=== PATIENT | female | born 1965 | race Caucasian/White ===

== ENCOUNTER 2021-03-11 07:26 | Observation (INO) ==
--- NOTE | 2021-02-26 15:56 | Anesthesiology Consultation ---
Date of Service February 26, 2021 Assessment & Plan (1) Encounter for pre-operative examination: - COVID screening: Per assessment on 02/26: Travel screen negative, no known COVID-19 positive contacts or current COVID-19 related symptoms. Surgeon arranging preop COVID testing. Awaiting results. - S/P Right TKA (11/08/20): SAB x1 attempt + PNB at [facility] - Claustrophobic: Anxious regarding O2 mask and requests to be "sleepy" prior to placement DOS if possible Chart Review Chart Review: Acceptable Risk for Surgery and Patient NOT seen in Pre Admission Testing History Surgery Operation Date: 03/11/21 07:15 Proposed Procedures p Left Total Knee Arthroplasty - Sonny Yancey MD Height/Weight Height: 5 ft 4 in Weight: 102.058 kg Allergies Allergy/AdvReac Type Severity Reaction Status Date / Time amoxicillin [From Augmentin] AdvReac Intermediate Nausea Verified 02/26/21 14:48 clavulanic acid AdvReac Intermediate Nausea Verified 02/26/21 14:48 [From Augmentin] propranolol [From Inderal LA] AdvReac Intermediate Vertigo Verified 02/26/21 15:53 Medications Home Medications Medication Instructions Recorded Confirmed Last Taken ferrous sulfate 325 mg (65 mg 325 mg PO BID #60 tab 07/12/19 02/26/21 11/07/20 16:00 iron) tablet gabapentin 600 mg tablet 600 mg PO HS #30 tab 07/12/19 02/26/21 11/08/20 07:00 meclizine 25 mg tablet 25 mg PO Q8 PRN #1 tab 07/12/19 02/26/21 2 Months Ago ~09/10/20 trazodone 100 mg tablet 100 mg PO HS #90 tab 07/12/19 02/26/21 11/06/20 20:00 albuterol sulfate 1 puffs INH QID PRN 10/22/20 02/26/21 2 Months Ago ~09/10/20 ascorbate calcium (vitamin C) 500 mg PO BID 10/22/20 02/26/21 11/07/20 08:00 bupropion HCl [Wellbutrin SR] 200 mg PO BID 10/22/20 02/26/21 11/08/20 07:00 cholecalciferol (vitamin D3) 50 mcg PO QAM 0202/26/21 11/07/20 08:00 [Vitamin D3] donepezil [Aricept] 5 mg PO HS 10/22/20 02/26/21 11/07/20 16:00 fexofenadine 180 mg PO QAM 10/22/20 02/26/21 11/07/20 08:00 fluticasone propionate [Flonase 2 sprays INTNAS QA 10/22/20 02/26/21 11/07/20 08:00 Allergy Relief] gabapentin 100 mg PO QAM 10/22/20 02/26/21 11/07/20 07:00 gabapentin 400 mg PO TID 10/22/20 02/26/21 11/07/20 07:00 lubiprostone [Amitiza] 24 mcg PO BID 10/22/20 02/26/21 11/07/20 16:00 montelukast [Singulair] 10 mg PO QPM 10/22/20 02/26/21 11/07/20 16:00 oxybutynin chloride 5 mg PO BID 10/22/20 02/26/21 11/07/20 16:00 pantoprazole 40 mg PO QAM 10/22/20 02/26/21 11/08/20 07:00 potassium chloride 20 meq PO QA 10/22/20 02/26/21 11/07/20 08:00 prazosin 2 mg PO 10/22/20 02/26/21 11/06/20 08:00 quetiapine [Seroquel] 100 mg PO 10/22/20 02/26/21 11/06/20 20:00 sertraline [Zoloft] 100 mg PO QAM 10/22/20 02/26/21 11/08/20 07:00 sumatriptan succinate [Imitrex] 25 mg PO UD PRN 10/22/20 02/26/21 2 Weeks Ago ~10/25/20 topiramate [Topamax] 50 mg PO BID 10/22/20 02/26/21 11/07/20 16:00 amitriptyline 10 mg PO HS 11/08/20 02/26/21 Unknown albuterol sulfate 1.25 mg INHALATION QID PRN 02/26/21 02/26/21 Unknown azelastine-fluticasone 1 spray INTRANASAL BID 02/26/21 02/26/21 Unknown lurasidone [Latuda] 20 mg PO PM 02/26/21 02/26/21 Unknown naproxen 500 mg PO BID PRN 02/26/21 02/26/21 Unknown ondansetron HCl [Zofran] 8 mg PO Q8H PRN 02/26/21 02/26/21 Unknown oxycodone-acetaminophen 1 tab PO Q8H PRN 02/26/21 02/26/21 Unknown Past Medical History Medical History Anxiety Asthma "controlled" Bipolar disorder Chronic back pain Claustrophobia Degenerative disc disease Depression GERD (gastroesophageal reflux disease) Controlled Memory loss mild short term Migraine Osteoarthritis Post traumatic stress disorder Past Family History Family History Father Prostate cancer Brother Family history of diabetes mellitus Sister Family history of diabetes mellitus Past Surgical History Surgical History H/O exploratory laparotomy removal of ectopic History of carpal tunnel surgery Left ulnar nerve surgery History of cholecystectomy History of endoscopic sinus surgery History of total knee replacement Right TKA (11/08/20): SAB x1 attempt + PNB at [facility] S/P BSO (bilateral salpingo-oophorectomy) S/P epidural steroid injection Social History Smoking Status: Never smoker Do You Dip or Chew Tobacco: No Hx Alcohol Use: No Hx Substance Use: Yes substance use type: prescription drug Testing Laboratory Results 02/20/21 WBC 10.08 H/H 12.7/40.3 PLATELETS 279 SODIUM 144 POTASSIUM 4.0 CHLORIDE 107 CO2 24 BUN 6 CREATININE 0.8 GLUCOSE 95 HGBA1C 5.5% TSH 2.38 (WNL) PT 13.3 PTT 27 INR 1.00 UA negative Electrocardiogram Date: 02/20/21 NSR at 80bpm. Low voltage QRS, consider pulmonary disease, pericardial effusion or normal variant. Compared to 02/02/2020, no significant change found per outside food server review. Chest X-Ray Date: 02/20/21 No evidence of acute cardiopulmonary disease. Linear streaky opacities in the lung bases, likely atelectasis and/or scarring. No focal consolidation. Cholecystectomy clips in the RUQ. Moderately sized hiatal hernia noted. Other Testing MR Head without contrast (02/16/21): No acute findings (imaging was done for migraine evaluation per report)
--- NOTE | 2021-03-10 19:20 | History & Physical Report ---
Date of Service March 10, 2021 Assessment & Plan (1) Primary osteoarthritis of left knee: Treatment options discussed. She has failed conservative measures. Risks, benefits and alternatives to surgery including but not limited to infection, DVT, pain, stiffness, need for revision surgery, damage to blood vessels, damage to nerves, PE, , were discussed with the patient and they wish to proceed. Will plan on Left total knee arthroplasty on 03/10/21 at [facility] with Dr. Yancey. Will plan on Xarelto 10mg daily x 1 mo post operatively for DVT prophylaxis. Will plan on inpatient rehab post discharge. All questions answered. She will follow up post operatively. History of Present Illness Chief Complaint: Left knee pain Primary Care Provider: Winnie Salas MD 55 year old female with PMHx significant for asthma, GERD, anxiety, migraines who presents with ongoing left knee pain. Pain is interfering with her daily and leisure activity. She has failed conservative measures including cortisone and viscoelastic injections. Has done well with recent right knee replacement. She would like to proceed with left knee replacement. Patient denies headaches, sweats, fevers, chills, double vision, blurred vision, cough, sore throat, dysphagia, chest pain, sob, wheezing, n/v/d/c, numbness, tingling, fatigue, urinary symptoms, mood disorders. ROS positive for left knee pain and stiffness. Allergies Allergy/AdvReac Type Severity Reaction Status Date / Time amoxicillin [From Augmentin] AdvReac Intermediate Nausea Verified 02/26/21 14:48 clavulanic acid AdvReac Intermediate Nausea Verified 02/26/21 14:48 [From Augmentin] propranolol [From Inderal LA] AdvReac Intermediate Vertigo Verified 02/26/21 15:53 Home Medications Medication Instructions Recorded Confirmed Type ferrous sulfate 325 mg (65 mg 325 mg PO BID #60 tab 07/12/19 02/26/21 Rx iron) tablet gabapentin 600 mg tablet 600 mg PO HS #30 tab 07/12/19 02/26/21 Rx meclizine 25 mg tablet 25 mg PO Q8 PRN #1 tab 07/12/19 02/26/21 Rx trazodone 100 mg tablet 100 mg PO HS #90 tab 07/12/19 02/26/21 Rx albuterol sulfate 1 puffs INH QID PRN 10/22/20 02/26/21 History ascorbate calcium (vitamin C) 500 mg PO BID 10/22/20 02/26/21 History bupropion HCl [Wellbutrin SR] 200 mg PO BID 10/22/20 02/26/21 History cholecalciferol (vitamin D3) 50 mcg PO QAM 10/22/20 02/26/21 History [Vitamin D3] donepezil [Aricept] 5 mg PO HS 10/22/20 02/26/21 History fexofenadine 180 mg PO QAM 10/22/20 02/26/21 History fluticasone propionate [Flonase 2 sprays INTNAS QAM 10/22/20 02/26/21 History Allergy Relief] gabapentin 100 mg PO QAM 10/22/20 02/26/21 History gabapentin 400 mg PO TID 10/22/20 02/26/21 History lubiprostone [Amitiza] 24 mcg PO BID 10/22/20 02/26/21 History montelukast [Singulair] 10 mg PO QPM 10/22/20 02/26/21 History oxybutynin chloride 5 mg PO BID 10/22/20 02/26/21 History pantoprazole 40 mg PO QAM 10/22/20 02/26/21 History potassium chloride 20 meq PO QAM 10/22/20 02/26/21 History prazosin 2 mg PO HS 10/22/20 02/26/21 History quetiapine [Seroquel] 100 mg PO HS 10/22/20 02/26/21 History sertraline [Zoloft] 100 mg PO QAM 10/22/20 02/26/21 History sumatriptan succinate [Imitrex] 25 mg PO UD PRN 10/22/20 02/26/21 History topiramate [Topamax] 50 mg PO BID 10/22/20 02/26/21 History amitriptyline 10 mg PO HS 11/08/20 02/26/21 History albuterol sulfate 1.25 mg INHALATION QID PRN 02/26/21 02/26/21 History azelastine-fluticasone 1 spray INTRANASAL BID 02/26/21 02/26/21 History lurasidone [Latuda] 20 mg PO PM 02/26/21 02/26/21 History naproxen 500 mg PO BID PRN 02/26/21 02/26/21 History ondansetron HCl [Zofran] 8 mg PO Q8H PRN 02/26/21 02/26/21 History oxycodone-acetaminophen 1 tab PO Q8H PRN 02/26/21 02/26/21 History Past Med/Surg History Medical History Anxiety Asthma "controlled" Bipolar disorder Chronic back pain Claustrophobia Degenerative disc disease Depression GERD (gastroesophageal reflux disease) Controlled Memory loss mild short term Migraine Osteoarthritis Post traumatic stress disorder Surgical History H/O exploratory laparotomy removal of ectopic History of carpal tunnel surgery Left ulnar nerve surgery History of cholecystectomy History of endoscopic sinus surgery History of total knee replacement Right TKA (11/08/20): SAB x1 attempt + PNB at [facility] S/P BSO (bilateral salpingo-oophorectomy) S/P epidural steroid injection Family History Father Prostate cancer Brother Family history of diabetes mellitus Sister Family history of diabetes mellitus Social History (Updated 02/26/21 @ 15:16 by Josseline Mejia RN) Smoking Status: Never smoker Second Hand Exposure: Yes (FATHER SMOKED/FATHER IN LAW SMOKED); Hx Alcohol Use: No Hx Substance Use: Yes Preferred Language: Gabonese Communication Ability: Effective Protective Service Specialist Required: No Beliefs That Will Affect Care: None marital status: Unknown Current Living Situation: Family Current Living Situation Comment: lives with sister current occupational status: disabled Feels Safe at Home: Yes Assistive Devices: Glasses and Walker Review of Systems All systems reviewed & are unremarkable except as noted in HPI & below Physical Exam Constitutional: well developed and well nourished; no acute distress Eyes: PERRL, conjunctivae normal, anicteric sclerae ENMT: external ear and nose normal, oropharynx normal Neck: trachea midline, no thyromegaly Respiratory: normal respiratory effort, lungs clear to auscultation Cardiovascular: RRR, no murmur, no edema Musculoskeletal: Left knee: ROM 0-115. Crepitation noted. Positive Poly's. stable to valgus and varus stress. She has tenderness medial joint line. Varus alignment. Skin: no rashes, warm and dry Neurologic: patellar DTR's 2+ bilat, sensation intact Psychiatric: A+Ox3, euthymic affect Results & Data ([facility]) Diagnostic Findings Left knee x-rays demonstrate that she has tricompartmental osteoarthritis. The left knee is bone on bone in extension views. There is medial subluxation of the femur on the tibia. She has tricompartmental osteophytes. She has subchondral sclerosis.
[~2021-03-11 07:26] MED LIST: ACETAMINOPHEN 500 MG TAB PO SCH; CeleBREX 200 MG CAP PO SCH; FAMOTIDINE 20 MG TAB PO SCH; GABAPENTIN 900 MG DOSE PO SCH; LR 500ML BOLUS, THEN 15ML/HR IV SCH; METOCLOPRAMIDE HCL 10 MG TABLET PO SCH; ROPIVACAINE 0.5% HCL/PF 150 MG, BUPIVACAINE 0.75% MPF 20 ML, EPINEPHrine 30MG/30ML (OR ... INSTIL SCH; TRANEXAMIC ACID / 0.7% NACL 1,000 MG/100 ML BAG IV SCH; TRANEXAMIC ACID 1,000 MG **IV Intra-op IV SCH; VANCOMYCIN HCL 1,500 MG in SODIUM CHLORIDE 0.9% 500 ML IV SCH; dexAMETHasone 4 MG TAB PO SCH
[2021-03-11] MEDS ORDERED: BUPIVACAINE 0.25% 30 ML VIAL ONE (07:32)
[2021-03-11] MEDS ORDERED: BUPIVACAINE 0.5 % 5 MG/1 ML PF 10ML VIAL ONE (07:32)
[2021-03-11] MEDS ORDERED: PROPOFOL IV EMULSION 10 MG/ML 20 ML VIAL IV ONE ×2 (07:59→11:20)
[2021-03-11] MEDS ORDERED: MIDAZOLAM HCL 1 MG/ML 2ML VIAL ONE (07:59)
[2021-03-11] MEDS ORDERED: fentaNYL citrate 100 MCG/2 ML VIAL ONE (07:59)
--- NOTE | 2021-03-11 09:38 | History & Physical Bridge Note ---
Date of Service March 11, 2021 History & Physical Bridge Note I have examined the patient, reviewed the History & Physical and in the interval since the performance of the History & Physical I have noted the following changes of clinical significance: no changes noted
[2021-03-11] MEDS ORDERED: ORTHO JOINT ANESTHETIC ONE (10:10)
[2021-03-11] MEDS ORDERED: ePHEDrine sulfate 50 MG/ML AMP IV PRN (10:54)
[2021-03-11] MEDS ORDERED: ATROPINE SULFATE 0.1 MG/ML 10ML SYR IV PRN (10:54)
--- NOTE | 2021-03-11 12:18 | Post Operative Brief Note ---
Immediate Post Op Note v1 Date of Surgery March 11, 2021 Pre & Post Diagnosis Operation Date: 03/11/21 09:25 Pre-Op Diagnosis: Unilateral Primary Osteoarthritis, obesity BMI 40.5, left knee Post-Op Diagnosis: Unilateral Primary Osteoarthritis, obesity BMI 40.5, left knee I identified the patient and participated in the time-out.: Yes Procedure Operation Date: 03/11/21 09:25 Actual Procedures p Left Total Knee Arthroplasty(Left), superficial wound VAC, increased difficulty morbid obesity BMI 40.5- Sonny Yancey MD Surgeon Sonny Yancey MD Metal Sander Arnie WEISS Estimated Blood Loss 5 Findings Consistent with Post-Op Diagnosis Specimens Bone cuts Drains Hemovac Drain Anesthesia Type MAC Spinal Regional Complications none Disposition Accompanied Patient To Recovery: No Disposition: Recovery Room Overlapping Procedure I was immediately available: during the entire case.
--- NOTE | 2021-03-11 12:38 | Operative Report ---
Post Operative Report Pre & Post Diagnosis Operation Date: 03/11/21 09:25 Pre-Op Diagnosis: Unilateral Primary Osteoarthritis, morbid obesity BMI 40.5, left knee Post-Op Diagnosis: Unilateral Primary Osteoarthritis, morbid obesity BMI 40.5, left knee I identified the patient and participated in the time-out.: Yes Procedure Operation Date: 03/11/21 09:25 Actual Procedures p Left Total Knee Arthroplasty, lateral release, superficial wound VAC, increased difficulty more obesity BMI 40.5 (Left) - Sonny Yancey MD Surgeon Sonny Yancey MD Service Associate Arnie WEISS Estimated Blood Loss 5 Findings Consistent with Post-Op Diagnosis Specimens Bone cuts Drains 2 Hemovac Anesthesia Type MAC Spinal Regional Complications none Disposition Accompanied Patient To Recovery: No Disposition: Recovery Room Indications 55-year-old female with severe osteoarthritis in her left knee. Patient undergoing a staged total knee replacement. She had her right knee replacement performed and did quite well with that. Left knee has tricompartmental osteoarthritis varus knee [id number] medial compartment. Description of Procedure Patient was taken to the operating room placed supine on the operating table and anesthetized under spinal MAC regional anesthesia. Exam under anesthesia demonstrated markedly obese upper thigh and moderately severe obesity area around the knee. A pneumatic tourniquet was placed about the thigh of the left lower extremity. The left lower extremity was prepped and draped in usual fashion. The leg was elevated exsanguinated with an Esmarch bandage and the pneumatic was raised to 325 mm mercury. An anterior incision was made across the left knee. The skin was incised longitudinally and a deep layer of fat was divided down to the fascia. Subcutaneous flaps were elevated and an incision was made through the medial retinaculum extending up into the mid third of the quadriceps tendon and extended down to the medial tibial tubercle. Intra- articular findings demonstrated grade 4 patellofemoral osteoarthritis with circumferential osteophytes. Grade 4 medial compartment osteoarthritis. Tricompartmental osteophytes. Grade II-III chondromalacia lateral compartment with notch osteophytes but intact ACL and PCL.. The knee was exposed by excising the infrapatellar fat pad, excising the meniscal remnants and anterior cruciate ligament. Any inflamed synovial tissue was resected. The fat pad over the anterior femur was resected for placement of the component in that area. The lateral synovial bands were release. The femur was exposed and an intramedullary drill hole was made into the femoral canal followed by a guide fred with the distal femoral cutting guide adjusted to resect a standard distal femoral cut at 5 degree valgus cut.. The distal femoral cut was made with the oscillating saw. The sizing guide was applied and the drill holes were made in 3 degrees of external rotation to match epicondylar axis and femur sized for size 7. The size 7, 4-in-1 cutting block was placed. The anterior and posterior chamfer cuts were made. The knee was extended and a subperiosteal peel lateral release was performed around the patella. The patella width was measured and width was reproduced using freehand cut technique. The 32 x 8.5 millimeter symmetrical patella was used. 3 drill holes are made for the pegs. The tibia was exposed. The external tibial cutting was adjusted to resect a perpendicular cut to the long axis of the tibia matching the slope and resecting just below the most deficient medial side.. Cutting guide was pinned in position and the proximal cut was made with the oscillating saw. All osteophytes were resected. The lamina assembler body was used to assess ligamentous balance and the ligaments were balanced in extension and flexion. This required medial and posterior medial release. The tibia was reexposed and measured for a size D tibial component. This was externally rotated in line with the tibial tubercle and the fixation pins were drilled. The proximal tibia was fashioned with the drill and punch. The size 7 femoral trial was inserted. The trial MC inserts were used. The 12 mm insert gave balanced ligaments through full range of motion. The patella tracked with some lateral tilt so I performed a lateral release leaving the synovium intact and then the patella tracked centrally.. the trials were removed. The orthomix anesthetic cocktail was injected per protocol. The knee was then copiously irrigated with pulsatile lavage saline solution. The final components were cemented with Simplex cement. The final components were [employer] persona size 7 left narrow CR femoral component, D left tibial component, 12 MC polyethylene and a 32 x 8.5 symmetrical patella. After the cement cured with the knee in full extension the Betadine soak was used per protocol. The knee joint was copiously irrigated with pulsatile lavage saline solution. 2 drains were brought out laterally and connected to a Hemovac. The quadriceps tendon and medial retinaculum were closed with interrupted [id number] #1 Vicryl sutures. The knee was taken through a full range of motion and repair was secure. Range of motion 0 through 130 degrees. The subcutaneous tissues were closed in layers with 2-0 Vicryl sutures and skin was closed with rema. Saman and Acticoat superficial wound VAC was applied and the patient tolerated the procedure well. Arnie WEISS my physician wellness assistant, assisted in soft tissue retraction instrument management leg positioning the closure application superficial wound VAC and will participate in the postoperative care of the patient. I attest to the content of the Intraoperative Record and any orders documented therein. Any exceptions are noted below.
--- NOTE | 2021-03-11 13:01 | XRay Report ---
LEFT KNEE 2 VIEWS History: Left total knee arthroplasty. Degenerative arthritis. Postop. FINDINGS: The patient is status post a left total knee arthroplasty. The hardware is intact. No fract ure or dislocation. Skin rema and surgical drains are in place. IMPRESSION: Left total knee arthroplasty. No evidence for hardware complication. ACT 112: Negative or not required by law. Electronically signed by: Leroy Walters M.D. 03/11/2021 1:00 PM
--- NOTE | 2021-03-11 13:26 | Anesthesiology Progress Note ---
Date of Service March 11, 2021 Anesthesia Post Procedure Vital Signs Vital Signs: Temp Pulse Pulse Resp BP BP Pulse Ox 03/11/21 13:15 71 18 133/84 99 03/11/21 13:00 36.5 C 64 18 126/66 100 03/11/21 12:45 58 L 20 119/75 92 03/11/21 12:35 61 20 111/80 94 03/11/21 12:28 36.1 C L 94 H 16 109/72 98 03/11/21 08:14 36.7 C 78 18 121/76 95 Pain Intensity Left Knee: Pain Intensity: 6 Transfer of Care Handoff Completed per policy Notes Mental Status: alert / awake / arousable and participated in evaluation Nausea / Vomiting: adequately controlled Pain: adequately controlled Airway Patency, RR, SpO2: stable & adequate BP & HR: stable & adequate Hydration State: stable & adequate Neuraxial Anesthesia: was administered and sensory block is resolving Anesthetic Complications: no major complications apparent and Pt Satisfied with anesthetic care
[2021-03-11] MEDS ORDERED: HYDROmorphone INJ 0.5 MG/0.5 ML SYR ONE (15:52)
[2021-03-11] MEDS ORDERED: NALOXONE HCL 0.4 MG/1 ML VIAL/CARP IV PRN (15:53)
[2021-03-11] MEDS ORDERED: GABAPENTIN 400 MG CAP PO SCH (15:53)
[2021-03-11] MEDS ORDERED: VANCOMYCIN CONSULT ACTIVE PRN (15:53)
[2021-03-11] MEDS ORDERED: ONDANSETRON INJ 2 MG/ML 2 ML VIAL IV PRN (15:53)
[2021-03-11] MEDS ORDERED: MECLIZINE HCL 25MG HOME PACK PO PRN (15:53)
[2021-03-11] MEDS ORDERED: HYDROmorphone INJ 0.5 MG/0.5 ML SYR IV PRN (15:53)
[2021-03-11] MEDS ORDERED: ONDANSETRON 4 MG OD TAB PO PRN (15:53)
[2021-03-11] MEDS ORDERED: METOCLOPRAMIDE HCL INJ 5 MG/ML 2 ML VIAL IV PRN (15:53)
[2021-03-11] MEDS ORDERED: bisacodyL 10 MG SUPP PR PRN (15:53)
[2021-03-11] MEDS ORDERED: MAGNESIUM HYDROXIDE SUSP 30 ML UDC PO PRN (15:53)
[2021-03-11] MEDS ORDERED: SUMAtriptan succinate 25 MG TAB PO PRN (15:53)
[2021-03-11] MEDS ORDERED: ALBUTEROL HFA 8 GM INHALER INH PRN (15:59)
[2021-03-11] MEDS ORDERED: ALBUTEROL 0.083% NEBU SOLN 3 ML VIAL INH PRN (16:25)
--- NOTE | 2021-03-11 17:22 | Consultation ---
Date of Consultation March 11, 2021 Assessment & Plan (1) Primary osteoarthritis of left knee: Status post left TKA, POD #[address] Yancey EBL 5ml tolerated procedure well Pain/wound management per Ortho Activity and therapy as prescribed by Ortho Encourage incentive spirometry Monitor hemoglobin (2) Bipolar disorder: Follows with psychiatry History of bipolar disorder, schizoaffective disorder, MIRANDA Patient on multiple psychiatric medications, QTC WNL Meds reviewed with patient and are accurate Continue amitriptyline, Wellbutrin, gabapentin, latuda, prazosin, Seroquel, Topamax, trazodone (3) Asthma: No acute exacerbation Continue as needed albuterol Encourage incentive spirometry (4) DVT prophylaxis: Rivaroxaban per orthopedics Dispo: per primary PCP: Winnie Salas MD FULL CODE Patient was seen and examined in collaboration with Dr. Richey, please see addendum Thank you for this consultation. We will follow the patient with you during their hospital stay. You can reach a member of the [facility] Hospitalist Team 28/03 via hospitalist role on tiger text. Supervising Physician Co-Signing Physician Notes Patient is a 55-year-old female with history of asthma, schizoaffective disorder, generalized anxiety disorder and other medical problems was consulted for postop medical management after having left TKA by . Patient is doing well postoperatively. Denies any significant pain at surgical site. Also denies any chest pain, dyspnea, dizziness, nausea, abdominal pain. Family at bedside. On exam patient is obese, no apparent distress, normocephalic atraumatic, lungs are clear to auscultation, normal breath sounds, S1-S2, no murmur, no pedal edema, abdomen soft, nontender, normal bowel sounds, left knee surgical site in dressing, alert, awake, oriented, grossly no focal deficits. Patient is consulted for postop medical management. Activity, wound care as per primary team. On Xarelto for anticoagulation. Continue incentive spirometer. Monitor for postop anemia. Continue bowel regimen to prevent constipation. No signs of exacerbation of asthma noted. Continue home medications for bipolar, schizoaffective disorder. I personally reviewed the record. Patient is interviewed and examined at bedside. Patient's care is coordinated with Lizbeth Gama PA-C. Please refer to the documentation above for details of patient's presentation and for discussion of other issues. History of Present Illness Requesting Physician: Dr. Richey Reason for Consultation: Postop medical management Attending Physician: Sonny Yancey MD History of Present Illness This is a 55-year-old female who has significant past medical history of asthma, chronic allergic rhinitis, schizoaffective disorder, bipolar type II, MIRANDA, GERD who presents for elective left TKA. Her sister is at bedside. Postoperatively she does have some left knee incisional tenderness but otherwise denies fever, chills, sweats, lightheadedness, dizziness, chest pain, shortness breath, cough, or symptoms, nausea, vomiting, abdominal pain. She states she got up to go to the bedside commode and she did feel lightheaded, but attributes this to not eating anything all day. As soon as she returned to bed her symptoms resolved. She did not feel presyncopal. She does a history of asthma which is well controlled with as needed albuterol. She had to use it once this week secondary to high humidity but otherwise has not had to use. She does have history of bipolar type II as well schizoaffective disorder. She does follow psychiatry and is on a regimen of trazodone, Topamax, Zoloft, Seroquel, prazosin, Latuda, gabapentin and amitriptyline. Her mood is stable and she admits to currently being weaned off of Topamax. Allergies Allergy/AdvReac Type Severity Reaction Status Date / Time amoxicillin [From Augmentin] AdvReac Intermediate Nausea Verified 03/11/21 07:56 clavulanic acid AdvReac Intermediate Nausea Verified 03/11/21 07:56 [From Augmentin] propranolol [From Inderal LA] AdvReac Intermediate Vertigo Verified 03/11/21 07:56 Home Medications Medication Instructions Recorded Confirmed Type ferrous sulfate 325 mg (65 mg 325 mg PO BID #60 tab 07/12/19 03/11/21 Rx iron) tablet gabapentin 600 mg tablet 600 mg PO HS #30 tab 07/12/19 03/11/21 Rx meclizine 25 mg tablet 25 mg PO Q8 PRN #1 tab 07/12/19 03/11/21 Rx trazodone 100 mg tablet 100 mg PO HS #90 tab 07/12/19 03/11/21 Rx albuterol sulfate 1 puffs INH QID PRN 10/22/20 03/11/21 History ascorbate calcium (vitamin C) 500 mg PO BID 10/22/20 03/11/21 History bupropion HCl [Wellbutrin SR] 200 mg PO BID 10/22/20 03/11/21 History cholecalciferol (vitamin D3) 50 mcg PO QAM 10/22/20 03/11/21 History [Vitamin D3] donepezil [Aricept] 5 mg PO HS 10/22/20 03/11/21 History fexofenadine 180 mg PO QAM 10/22/20 03/11/21 History fluticasone propionate [Flonase 2 sprays INTNAS QAM 10/22/20 03/11/21 History Allergy Relief] gabapentin 100 mg PO QAM 10/22/20 03/11/21 History gabapentin 400 mg PO TID 10/22/20 03/11/21 History lubiprostone [Amitiza] 24 mcg PO BID 10/22/20 03/11/21 History montelukast [Singulair] 10 mg PO QPM 10/22/20 03/11/21 History oxybutynin chloride 5 mg PO BID 10/22/20 03/11/21 History pantoprazole 40 mg PO QAM 10/22/20 03/11/21 History potassium chloride 20 meq PO QAM 10/22/20 03/11/21 History prazosin 2 mg PO HS 10/22/20 03/11/21 History quetiapine [Seroquel] 50 mg PO HS 10/22/20 03/11/21 History sertraline [Zoloft] 100 mg PO QAM 10/22/20 03/11/21 History sumatriptan succinate [Imitrex] 25 mg PO UD PRN 10/22/20 03/11/21 History topiramate [Topamax] 50 mg PO DAILY 10/22/20 03/11/21 History amitriptyline 10 mg PO HS 11/08/20 03/11/21 History albuterol sulfate 1.25 mg INHALATION QID PRN 02/26/21 03/11/21 History azelastine-fluticasone 1 spray INTRANASAL BID 02/26/21 03/11/21 History lurasidone [Latuda] 40 mg PO PM 02/26/21 03/11/21 History naproxen 500 mg PO BID PRN 02/26/21 03/11/21 History ondansetron HCl [Zofran] 8 mg PO Q8H PRN 02/26/21 03/11/21 History oxycodone-acetaminophen 1 tab PO Q8H PRN 02/26/21 03/11/21 History topiramate [Topamax] 75 mg PO QPM 03/11/21 03/11/21 History Patient History Medical History Anxiety Asthma "controlled" Bipolar disorder Chronic back pain Claustrophobia Degenerative disc disease Depression GERD (gastroesophageal reflux disease) Controlled Memory loss mild short term Migraine Osteoarthritis Post traumatic stress disorder Surgical History H/O exploratory laparotomy removal of ectopic History of carpal tunnel surgery Left ulnar nerve surgery History of cholecystectomy History of endoscopic sinus surgery History of total knee replacement Right TKA (11/08/20): SAB x1 attempt + PNB at [facility] S/P BSO (bilateral salpingo-oophorectomy) S/P epidural steroid injection Family History Father Prostate cancer Brother Family history of diabetes mellitus Sister Family history of diabetes mellitus Social History Smoking Status: Never smoker Second Hand Exposure: Yes (FATHER SMOKED/FATHER IN LAW SMOKED); Do You Dip or Chew Tobacco: No; Hx Alcohol Use: No Hx Substance Use: Yes Preferred Language: Cypriot Communication Ability: 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 Beliefs That Will Affect Care: None marital status: Unknown Current Living Situation: Family Current Living Situation Comment: lives with sister current occupational status: disabled Other Information That Helps Us Care for You: No Feels Safe at Home: Yes Safety Concerns: Feels Safe At This Time Assistive Devices: Glasses and Walker Review of Systems Review of Systems: All systems reviewed & are unremarkable except as noted in HPI & below Physical Exam Physical Exam: Constitutional: WD/WN, vitals as above, NAD, sitting up in bed, pleasant, conversing easily Head: Normocephalic, Atraumatic Eyes: PERRL, conjunctivae normal, anicteric sclerae ENMT: external ear and nose normal, oropharynx normal Neck: trachea midline, no thyromegaly normal visual inspection Respiratory: normal respiratory effort, lungs clear to auscultation, no wheeze, rales, rhonchi. Normal insp/exp effort, no accessory muscle use Cardiovascular: RRR, no murmur, no edema Vessels: no JVD or carotid bruit Chest: normal inspection of chest Abdomen: Obese abdomen, normal bowel sounds, soft, nontender, no hepatosplenomegaly Musculoskeletal: no cyanosis or clubbing, left knee TKA incision and dressing CDI, Hemovac in place, NVI distally otherwise extremities motor strength 5/5 Skin: no rashes, warm and dry normal turgor Neurologic: PERRL, EOMI, accommodation nl, no face palsy, no dysarthria CN's II-XI intact bilaterally and moves all extremities Psychiatric: A+Ox3, euthymic affect Lymphatic: no cervical or axillary lymphadenopathy : deferred Results & Data ([facility]) Vital Signs (Past 12 Hours) Vital Signs Temp Pulse Pulse Resp BP BP Pulse Ox 03/11/21 16:34 36.6 C 78 16 132/83 100 03/11/21 15:57 36.6 C 77 16 125/85 95 03/11/21 15:09 82 18 123/79 95 03/11/21 14:15 80 18 116/85 95 03/11/21 13:45 36.4 C L 73 18 121/89 97 03/11/21 13:30 70 17 111/87 98 03/11/21 13:15 71 18 133/84 99 03/11/21 13:00 36.5 C 64 18 126/66 100 03/11/21 12:45 58 L 20 119/75 92 03/11/21 12:35 61 20 111/80 94 03/11/21 12:28 36.1 C L 94 H 16 109/72 98 03/11/21 08:14 36.7 C 78 18 121/76 95 Laboratory Results Preop labs 02/20/2021 BMP: Sodium 144, potassium 4.0, BUN 6, creatinine 0.8 A1c 5.7 CBC: WBC 10.08, H&H 12.7/40.3 Diagnostic Findings Knee X-Ray 03/11/21 12:32 LEFT KNEE 2 VIEWS History: Left total knee arthroplasty. Degenerative arthritis. Postop. FINDINGS: The patient is status post a left total knee arthroplasty. The hardware is intact. No fracture or dislocation. Skin rema and surgical drains are in place. IMPRESSION: Left total knee arthroplasty. No evidence for hardware complication. ACT 112: Negative or not required by law. Electronically signed by: Leroy Walters M.D. 03/11/2021 1:00 PM Medications Administered Medication List Acetaminophen (Acetaminophen 500 Mg Tab) 1,000 mg PO PREOP SYED Stop: 03/11/21 18:00 Last Admin: 03/11/21 08:09 Dose: 1,000 mg Documented by: [id number] Celecoxib (Celebrex 200 Mg Cap) 200 mg PO PREOP SYED Stop: 03/11/21 18:00 Last Admin: 03/11/21 08:09 Dose: 200 mg Documented by: [id number] Dexamethasone (Dexamethasone 4 Mg Tab) 8 mg PO PREOP SYED Stop: 03/11/21 18:00 Last Admin: 03/11/21 08:07 Dose: 8 mg Documented by: [id number] Famotidine (Famotidine 20 Mg Tab) 20 mg PO PREOP SYED Stop: 03/11/21 18:00 Last Admin: 03/11/21 08:09 Dose: 20 mg Documented by: [id number] Gabapentin (Gabapentin 900 Mg Dose) 900 mg PO PREOP SYED Stop: 03/11/21 18:00 Last Admin: 03/11/21 08:07 Dose: 300 mg Documented by: [id number] Hydromorphone HCl (Hydromorphone Inj 0.5 Mg/0.5 Ml Syr) 0.5 mg IV Q4H PRN PRN Reason: Pain or Pre PT Stop: 03/25/21 15:52 Last Admin: 03/11/21 16:01 Dose: 0.5 mg Documented by: [id number] Vancomycin HCl 1,500 mg/ (Sodium Chloride) 530 mls @ 200 mls/hr IV PREOP SYED Stop: 03/11/21 18:00 Last Admin: 03/11/21 08:10 Dose: 200 mls/hr Documented by: [id number] Tranexamic Acid (Tranexamic Acid / 0.7% Nacl) 1,000 mg in 100 mls @ 600 mls/hr IV TODAY@0600 [facility] Stop: 03/11/21 18:00 Last Infusion: 03/11/21 10:03 Dose: 0 mls/hr Documented by: [id number] Admin: 03/11/21 09:40 Dose: 600 mls/hr Documented by: [id number] Tranexamic Acid (Tranexamic Acid / 0.7% Nacl) 1,000 mg in 100 mls @ 600 mls/hr IV TODAY@0600 [facility] Stop: 03/11/21 18:00 Last Admin: 03/11/21 11:48 Dose: 600 mls/hr Documented by: [id number] Lactated Ringer's (Lr) 1,000 mls @ 15 mls/hr IV .Q24H [facility] Stop: 03/11/21 18:00 Last Infusion: 03/11/21 10:06 Dose: 0 mls/hr Documented by: [id number] Admin: 03/11/21 08:10 Dose: 15 mls/hr Documented by: [id number] Metoclopramide HCl (Metoclopramide Hcl 10 Mg Tablet) 10 mg PO PREOP SYED Stop: 03/11/21 18:00 Last Admin: 03/11/21 08:09 Dose: 10 mg Documented by: [id number] Discontinued Medications Ropivacaine 150 mg/Bupivacaine HCl 20 ml/Epinephrine HCl 0.15 mg/Ketorolac Tromethamine 30 mg/Dexamethasone 4 mg/ Ketamine HCl 10 mg/ Clonidine HCl 100 mcg/ Sodium Chloride 88.35 mls @ 0 mls/hr INSTIL TODAY@0600 [facility]; Protocol Stop: 03/11/21 12:00 Last Admin: 03/11/21 11:41 Dose: 88.3 mls/hr Documented by: [id number] Miscellaneous (Ortho Joint Anesthetic ) Confirm Administered Dose 1 ea .ROUTE .STK-MED ONE Stop: 03/11/21 10:11 Last Admin: 03/11/21 11:42 Dose: Not Given Documented by: [id number] ECG Rate (beats per minute): 80 Rhythm: normal sinus Additional Comments: qtc 433ms
[2021-03-11] MEDS: oxyCODONE HCL IR 5 MG TAB (IMMEDIATE RELEASE) PO PRN ×2 (17:53→22:39)
[2021-03-11] MEDS: SODIUM CHLORIDE 0.9% 1000ML 1,000 ML IV SCH (18:14)
[2021-03-11] MEDS: LURASIDONE HCL 40 MG TAB PO SCH (18:44)
[2021-03-11] MEDS ORDERED: VANCOMYCIN HCL 1,500 MG in SODIUM CHLORIDE 0.9% 500 ML IV SCH (20:00)
[2021-03-11] MEDS ORDERED: NON-FORMULARY MEDICATION (Azelastine-Fluticasone 137-50 mcg/spray Spray,Non-Aerosol) INTNAS SCH (21:00)
[2021-03-11] MEDS ORDERED: TOPIRAMATE 50 MG TAB PO SCH (21:00)
[2021-03-11] MEDS: AMITRIPTYLINE HCL 10 MG TAB PO SCH (21:27)
[2021-03-11] MEDS: DOCUSATE SODIUM 100 MG CAP PO SCH (21:28)
[2021-03-11] MEDS: buPROPion SR 100 MG TABCR PO SCH (21:29)
[2021-03-11] MEDS: ASCORBIC ACID 500 MG TAB PO SCH (21:29)
[2021-03-11] MEDS: SENNA 8.6 MG TAB PO SCH (21:29)
[2021-03-11] MEDS: LUBIPROSTONE 8 MCG CAP PO SCH (21:30)
[2021-03-11] MEDS: DONEPEZIL HCL 5 MG TAB PO SCH (21:30)
[2021-03-11] MEDS: GABAPENTIN 600 MG TAB PO SCH (21:31)
[2021-03-11] MEDS: FERROUS SULFATE 325 MG TAB PO SCH (21:31)
[2021-03-11] MEDS: MONTELUKAST SODIUM 10 MG TABLET PO SCH (21:31)
[2021-03-11] MEDS: OXYBUTYNIN CHLORIDE 5 MG TAB PO SCH (21:32)
[2021-03-11] MEDS: QUEtiapine FUMARATE 25 MG TABLET PO SCH (21:33)
[2021-03-11] MEDS: traZODone HCL 100 MG TAB PO SCH (21:33)
[2021-03-11] MEDS: ACETAMINOPHEN 500 MG TAB PO SCH (21:33)
[2021-03-11] MEDS: PRAZOSIN HCL 1 MG CAP PO SCH (21:33)
[2021-03-12] MEDS: SODIUM CHLORIDE 0.9% 1000ML 1,000 ML IV SCH (05:30)
[2021-03-12] MEDS: ACETAMINOPHEN 500 MG TAB PO SCH ×3 (05:33→22:07)
[2021-03-12] MEDS: oxyCODONE HCL IR 5 MG TAB (IMMEDIATE RELEASE) PO PRN ×4 (05:48→20:37)
[2021-03-12 06:11] LABS: Hematocrit (blood only) 35.7 % (37-47); Hemoglobin 11.4 g/dL (12.0-16.0); Mean Corpuscular Hemoglobin 29.6 pg (25-34); Mean Corpuscular Hgb Conc 31.9 g/dL (32-36); Mean Corpuscular Volume 92.7 fL (80-100); Mean Platelet Volume 9.2 fL (7.4-10.4); Platelet Count 195 K/uL (130-400); RDW Coefficient of Variation 12.8 % (11.5-14.5); RDW Standard Deviation 43.3 fL (36.4-46.3); Red Blood Count 3.85 M/uL (4.2-5.4); White Blood Count 18.95 K/uL (4.8-10.8)
[2021-03-12 06:40] LABS: BUN Creatinine Ratio 11.8 (10-20); Calcium 8.5 mg/dl (8.5-10.1); Creatinine Clr Calc Pharmacy 112.6 ml/min; Est GFR (African American) 115.2 ml/min; Est GFR (Non-African American) 99.4 ml/min; Potassium 4.1 mmol/L (3.5-5.1)
--- NOTE | 2021-03-12 07:23 | Orthopedic Progress Note ---
Date of Service March 12, 2021 Assessment & Plan (1) Primary osteoarthritis of left knee: POD#1 left TKA -PT/OT -Pain management as written -DVT prophylaxis-SCDs, TEDs, Xarelto 10mg daily -AM labs-hemoglobin stable at 11.4, leukocytosis likely reactive -D/C planning-Plan on inpatient rehab. Case management consult placed. Stable for discharge when accepted. Admission and Anticipated Discharge Date Admission Date: March 11, 2021 Subjective POD#1. Patient doing well this morning, pain well controlled. No current complaints. Denies chest pain, sob, dizziness, n/v/d, fever, chills. Review of Systems Review of Systems: All systems reviewed & are unremarkable except as noted in Subjective Physical Exam Physical Exam: Left knee dressing is c/d/i, toes mobile, good dorsiflexion. No calf tenderness. Distally n/v status and sensation intact. Constitutional: well developed and well nourished; no acute distress Results & Data ([facility]) Vital Signs (Past 12 Hours) Vital Signs Temp Pulse Resp BP Pulse Ox 03/12/21 03:29 36.5 C 45 L 17 119/78 94 03/11/21 22:23 36.7 C 60 18 146/82 H 95
[2021-03-12] MEDS: FLUTICASONE PROPIONATE NA SPR 16 GM BTL SCH (07:47)
[2021-03-12] MEDS: SERTRALINE HCL 100 MG TABLET PO SCH (08:38)
[2021-03-12] MEDS: buPROPion SR 100 MG TABCR PO SCH ×2 (08:38→20:39)
[2021-03-12] MEDS: POTASSIUM CHLORIDE CRTAB 20 MEQ TABCR PO SCH (08:39)
[2021-03-12] MEDS: GABAPENTIN 400 MG CAP PO SCH ×3 (08:39→17:18)
[2021-03-12] MEDS: GABAPENTIN 100 MG CAP PO SCH (08:40)
[2021-03-12] MEDS: TOPIRAMATE 50 MG TAB PO SCH (08:40)
[2021-03-12] MEDS: ASCORBIC ACID 500 MG TAB PO SCH ×2 (08:40→20:40)
[2021-03-12] MEDS: RIVAROXABAN 10 MG TABLET PO SCH (08:40)
[2021-03-12] MEDS: OXYBUTYNIN CHLORIDE 5 MG TAB PO SCH ×2 (08:41→20:40)
[2021-03-12] MEDS: FERROUS SULFATE 325 MG TAB PO SCH ×2 (08:41→20:39)
[2021-03-12] MEDS: CHOLECALCIFEROL 1,000 UNITS 25 MCG TAB PO SCH (08:41)
[2021-03-12] MEDS: PANTOprazole 40 MG TAB PO SCH (08:41)
[2021-03-12] MEDS: LUBIPROSTONE 8 MCG CAP PO SCH ×2 (08:42→20:35)
[2021-03-12] MEDS: FEXOFENADINE HCL 180 MG TAB PO SCH (08:42)
[2021-03-12] MEDS: DOCUSATE SODIUM 100 MG CAP PO SCH ×2 (08:45→20:35)
[2021-03-12] MEDS: MULTIVITAMIN TAB PO SCH (09:18)
--- NOTE | 2021-03-12 13:10 | Hospitalist Progress Note ---
Date of Service March 12, 2021 Assessment & Plan (1) Primary osteoarthritis of left knee: Status post left TKA, POD #[address] Naye CHANCE 5ml tolerated procedure well Pain/wound management per Ortho Activity and therapy as prescribed by Ortho Encourage incentive spirometry Pain seems to be reasonably controlled Hemoglobin remains stable (2) Bipolar disorder: Follows with psychiatry History of bipolar disorder, schizoaffective disorder, MIRANDA Patient on multiple psychiatric medications, QTC WNL Meds reviewed with patient and are accurate Continue amitriptyline, Wellbutrin, gabapentin, latuda, prazosin, Seroquel, Topamax, trazodone No acute symptoms (3) Asthma: No acute exacerbation Continue as needed albuterol Encourage incentive spirometry Chest remains clear on auscultation (4) DVT prophylaxis: Rivaroxaban per orthopedics Dispo: per primary PCP: Winnie Salas MD FULL CODE Medically stable Admission and Anticipated Discharge Date Admission Date: March 11, 2021 Subjective 03/12/2021 The patient was seen and examined in medical floor She is status post left total knee arthroplasty and complains to have some pain in the left knee with movement Denies any other symptoms Review of Systems Review of Systems: All systems reviewed and are unremarkable except as noted below Musculoskeletal: + joint pain (Left knee pain with movement) Physical Exam Physical Exam: Sitting on a chair without any acute distress Constitutional: well developed, well nourished and + obese; not ill appearing Eyes: PERRL, conjunctivae normal, anicteric sclerae ENMT: external ear and nose normal, oropharynx normal Neck: trachea midline, no thyromegaly Respiratory: no respiratory distress Auscultation: lungs clear to auscultation bilaterally Cardiovascular: Rate/Rhythm: regular rate and regular rhythm Heart Sounds: no murmur Extremities: + edema (Trace edema bilaterally) Gastrointestinal (Abdomen): Inspection/Auscultation: normal bowel sounds; abdomen not distended Percussion/Palpation: abdomen soft; abdomen nontender Musculoskeletal: Knee: + knee abnormal to inspection (Left knee is bandaged, status post total arthroplasty) Neurologic: Alert, awake and oriented x3. No focal sensory and motor deficit appreciated Psychiatric: A+Ox3, euthymic affect Lymphatic: no cervical or axillary lymphadenopathy Results & Data Results & Data ([facility]) Vital Signs (Past 12 Hours) Vital Signs Temp Pulse Resp BP Pulse Ox 03/12/21 07:33 36.7 C 49 L 16 108/72 96 03/12/21 03:29 36.5 C 45 L 17 119/78 94 Laboratory Results Short CBC 03/12/21 Range/Units 06:00 WBC 18.95 H (4.8-10.8) K/uL Hgb 11.4 L (12.0-16.0) g/dL Hct 35.7 L (37-47) % Plt Count 195 (130-400) K/uL BMP 03/12/21 06:00 Sodium 142 Potassium 4.1 Chloride 112 H Carbon Dioxide 25 BUN 8 Creatinine 0.69 Glucose 135 H Calcium 8.5 Medications Administered Current Inpatient Medications Acetaminophen (Acetaminophen 500 Mg Tab) 1,000 mg PO Q8 SYED Stop: 04/10/21 21:59 Last Admin: 03/12/21 05:33 Dose: 1,000 mg Documented by: Albuterol (Albuterol 0.083% Nebu Soln 3 Ml Vial) 2.5 mg INH QID PRN PRN Reason: Wheezing Stop: 04/10/21 16:24 Albuterol (Albuterol Hfa 8 Gm Inhaler) 1 puffs INH QID PRN PRN Reason: sob/wheezing Stop: 04/10/21 15:58 Amitriptyline HCl (Amitriptyline Hcl 10 Mg Tab) 10 mg PO HS SYED Stop: 04/10/21 20:59 Last Admin: 03/11/21 21:27 Dose: 10 mg Documented by: Ascorbic Acid (Ascorbic Acid 500 Mg Tab) 500 mg PO BID SYED Stop: 04/10/21 20:59 Last Admin: 03/12/21 08:40 Dose: 500 mg Documented by: Bisacodyl (Bisacodyl 10 Mg Supp) 10 mg FL DAILY PRN PRN Reason: Constipation Stop: 04/10/21 15:52 Bupropion HCl (Bupropion Sr 100 Mg Tabcr) 200 mg PO BID SYED Stop: 04/10/21 20:59 Last Admin: 03/12/21 08:38 Dose: 200 mg Documented by: Docusate Sodium (Docusate Sodium 100 Mg Cap) 100 mg PO BID SYED Stop: 04/10/21 20:59 Last Admin: 03/12/21 08:45 Dose: Not Given Documented by: Donepezil HCl (Donepezil Hcl 5 Mg Tab) 5 mg PO HS [facility] Stop: 04/10/21 20:59 Last Admin: 03/11/21 21:30 Dose: 5 mg Documented by: Ferrous Sulfate (Ferrous Sulfate 325 Mg Tab) 325 mg PO BID SYED Stop: 04/10/21 20:59 Last Admin: 03/12/21 08:41 Dose: 325 mg Documented by: Fexofenadine HCl (Fexofenadine Hcl 180 Mg Tab) 180 mg PO QAM [facility] Stop: 04/11/21 08:59 Last Admin: 03/12/21 08:42 Dose: 180 mg Documented by: Fluticasone Propionate (Fluticasone Propionate Na Spr 16 Gm Btl) 2 sprays NA QAM [facility] Stop: 04/11/21 08:59 Last Admin: 03/12/21 07:47 Dose: 2 sprays Documented by: Gabapentin (Gabapentin 100 Mg Cap) 100 mg PO QAM [facility] Stop: 04/11/21 08:59 Last Admin: 03/12/21 08:40 Dose: 100 mg Documented by: Gabapentin (Gabapentin 600 Mg Tab) 600 mg PO [facility] Stop: 04/10/21 20:59 Last Admin: 03/11/21 21:31 Dose: 600 mg Documented by: Gabapentin (Gabapentin 400 Mg Cap) 400 mg PO TID@0900,1200,1600 [facility] Stop: 04/11/21 08:59 Last Admin: 03/12/21 12:40 Dose: 400 mg Documented by: Hydromorphone HCl (Hydromorphone Inj 0.5 Mg/0.5 Ml Syr) 0.5 mg IV Q4H PRN PRN Reason: Pain or Pre PT Stop: 03/25/21 15:52 Last Admin: 03/11/21 16:01 Dose: 0.5 mg Documented by: Lubiprostone (Lubiprostone 8 Mcg Cap) 24 mcg PO BID SYED Stop: 04/10/21 20:59 Last Admin: 03/12/21 08:42 Dose: 24 mcg Documented by: Lurasidone HCl (Lurasidone Hcl 40 Mg Tab) 40 mg PO QDD SYED Stop: 04/10/21 16:29 Last Admin: 03/11/21 18:44 Dose: 40 mg Documented by: Magnesium Hydroxide (Magnesium Hydroxide Susp 30 Ml Udc) 30 ml PO Q6H PRN PRN Reason: Constipation Stop: 04/10/21 15:52 Metoclopramide HCl (Metoclopramide Hcl Inj 5 Mg/Ml 2 Ml Vial) 10 mg IV Q6H PRN PRN Reason: Nausea And Vomiting Stop: 04/10/21 15:52 Miscellaneous (Azelastine-Fluticasone Nasal Molena: Order Awaiting Action) 1 ea N/A QS [facility] Stop: 04/11/21 00:00 Last Admin: 03/12/21 08:46 Dose: Not Given Documented by: Montelukast Sodium (Montelukast Sodium 10 Mg Tablet) 10 mg PO QPM [facility] Stop: 04/10/21 20:59 Last Admin: 03/11/21 21:31 Dose: 10 mg Documented by: Multivitamins (Multivitamin Tab) 1 tab PO QAM [facility] Stop: 04/11/21 08:59 Last Admin: 03/12/21 09:18 Dose: 1 tab Documented by: Naloxone HCl (Naloxone Hcl 0.4 Mg/1 Ml Vial/Carp) 0.1 mg IV Q5M PRN PRN Reason: Oversedation/Resp Depression Stop: 04/10/21 15:52 Ondansetron HCl (Ondansetron 4 Mg Od Tab) 8 mg PO Q8H PRN PRN Reason: Nausea Stop: 04/10/21 15:52 Ondansetron HCl (Ondansetron Inj 2 Mg/Ml 2 Ml Vial) 4 mg IV Q6H PRN PRN Reason: Nausea And Vomiting Stop: 04/10/21 15:52 Oxybutynin Chloride (Oxybutynin Chloride 5 Mg Tab) 5 mg PO BID [facility] Stop: 04/10/21 20:59 Last Admin: 03/12/21 08:41 Dose: 5 mg Documented by: Oxycodone HCl (Oxycodone Hcl Ir 5 Mg Tab (Immediate Release)) 5 - 10 mg PO Q4H PRN PRN Reason: Pain or Pre PT Stop: 03/25/21 15:52 Last Admin: 03/12/21 12:39 Dose: 10 mg Documented by: Pantoprazole Sodium (Pantoprazole 40 Mg Tab) 40 mg PO QAM [facility] Stop: 04/11/21 08:59 Last Admin: 03/12/21 08:41 Dose: 40 mg Documented by: Potassium Chloride (Potassium Chloride Crtab 20 Meq Tabcr) 20 meq [facility] [place]: 04/11/21 08:59 Last Admin: 03/12/21 08:39 Dose: 20 meq Documented by: Prazosin HCl (Prazosin Hcl 1 Mg Cap) 2 mg PO [facility] Stop: 04/10/21 20:59 Last Admin: 03/11/21 21:33 Dose: 2 mg Documented by: Quetiapine Fumarate (Quetiapine Fumarate 25 Mg Tablet) 50 mg PO [facility] Stop: 04/10/21 20:59 Last Admin: 03/11/21 21:33 Dose: 50 mg Documented by: Rivaroxaban (Rivaroxaban 10 Mg Tablet) 10 mg PO DAILY [facility] Stop: 04/11/21 08:59 Last Admin: 03/12/21 08:40 Dose: 10 mg Documented by: Sennosides (Senna 8.6 Mg Tab) 17.2 mg PO [facility] Stop: 04/10/21 20:59 Last Admin: 03/11/21 21:29 Dose: Not Given Documented by: Sertraline HCl (Sertraline Hcl 100 Mg Tablet) 100 mg PO [facility] Stop: 04/11/21 08:59 Last Admin: 03/12/21 08:38 Dose: 100 mg Documented by: Sumatriptan Succinate (Sumatriptan Succinate 25 Mg Tab) 25 mg PO UD PRN PRN Reason: migraines Stop: 04/10/21 15:52 Topiramate (Topiramate 25 Mg Tab) 75 mg PO QDD [facility] Stop: 04/11/21 16:29 Topiramate (Topiramate 50 Mg Tab) 50 mg PO [facility] Stop: 04/11/21 08:59 Last Admin: 03/12/21 08:40 Dose: 50 mg Documented by: Trazodone HCl (Trazodone Hcl 100 Mg Tab) 100 mg PO [facility] Stop: 04/10/21 20:59 Last Admin: 03/11/21 21:33 Dose: 100 mg Documented by: Vitamin D (Cholecalciferol 1,000 Units 25 Mcg Tab) 2,000 units [facility] [place]: 04/11/21 08:59 Last Admin: 03/12/21 08:41 Dose: 2,000 units Documented by:
[2021-03-12] MEDS ORDERED: TOPIRAMATE 25 MG TAB PO SCH (16:30)
[2021-03-12] MEDS: LURASIDONE HCL 40 MG TAB PO SCH (17:17)
[2021-03-12] MEDS: SENNA 8.6 MG TAB PO SCH (20:35)
[2021-03-12] MEDS: GABAPENTIN 600 MG TAB PO SCH (20:39)
[2021-03-12] MEDS: AMITRIPTYLINE HCL 10 MG TAB PO SCH (20:39)
[2021-03-12] MEDS: DONEPEZIL HCL 5 MG TAB PO SCH (20:39)
[2021-03-12] MEDS: MONTELUKAST SODIUM 10 MG TABLET PO SCH (20:39)
[2021-03-12] MEDS: QUEtiapine FUMARATE 25 MG TABLET PO SCH (20:39)
[2021-03-12] MEDS: PRAZOSIN HCL 1 MG CAP PO SCH (20:40)
[2021-03-12] MEDS: traZODone HCL 100 MG TAB PO SCH (20:40)
[2021-03-13] MEDS: oxyCODONE HCL IR 5 MG TAB (IMMEDIATE RELEASE) PO PRN ×4 (02:59→15:35)
[2021-03-13] MEDS: ACETAMINOPHEN 500 MG TAB PO SCH ×2 (05:33→14:07)
--- NOTE | 2021-03-13 07:10 | Orthopedic Progress Note ---
Date of Service March 13, 2021 Assessment & Plan (1) Primary osteoarthritis of left knee: POD#2 left TKA -PT/OT -Pain management as written -DVT prophylaxis-SCDs, TEDs, Xarelto 10mg daily -D/C planning-Plan on inpatient rehab/SNF. Case management consult placed. [facility] unable to accept. Possible discharge to [facility]. Stable for discharge when accepted. Admission and Anticipated Discharge Date Admission Date: March 11, 2021 Subjective Patient POD#2. Having some increased pain today but controlled. No other complaints. Denies chest pain, sob, dizziness, n/v/d, fever, chills. Review of Systems Review of Systems: All systems reviewed & are unremarkable except as noted in Subjective Physical Exam Physical Exam: Left knee ANNAMARIE is c/d/i, dressing to hemovac in place, toes mobile, good dorsiflexion. No calf tenderness. Distally n/v status and sensation intact. Constitutional: well developed and well nourished; no acute distress Results & Data ([facility]) Vital Signs (Past 12 Hours) Vital Signs Temp Pulse Resp BP Pulse Ox 03/13/21 05:30 37.0 C 83 16 106/73 93 03/12/21 22:10 36.7 C 79 18 101/69 94
[2021-03-13 07:49] LABS: Basophils # (auto) 0.03 K/uL (0-0.2); Basophils % (auto) 0.2 %; Eosinophils # (auto) 0.08 K/uL (0-0.5); Eosinophils % (auto) 0.6 %; Hematocrit (blood only) 31.6 % (37-47); Hemoglobin 10.3 g/dL (12.0-16.0); Immature Granulocytes # (auto) 0.04 K/uL (0.00-0.02); Immature Granulocytes % (auto) 0.3 %; Lymphocytes # (auto) 2.87 K/uL (1.2-3.4); Mean Corpuscular Hemoglobin 29.6 pg (25-34); Mean Corpuscular Hgb Conc 32.6 g/dL (32-36); Mean Corpuscular Volume 90.8 fL (80-100); Mean Platelet Volume 8.8 fL (7.4-10.4); Monocytes % (auto) 11.8 %; Neutrophils # (auto) 9.63 K/uL (1.4-6.5); Neutrophils % (auto) 67.1 %; Platelet Count 169 K/uL (130-400); RDW Coefficient of Variation 13.1 % (11.5-14.5); RDW Standard Deviation 43.4 fL (36.4-46.3); Red Blood Count 3.48 M/uL (4.2-5.4); White Blood Count 14.35 K/uL (4.8-10.8)
[2021-03-13] MEDS ORDERED: KETOROLAC TROMETHAMINE 15 MG/ML VIAL IV ONE (08:08)
[2021-03-13] MEDS: TOPIRAMATE 50 MG TAB PO SCH (08:50)
[2021-03-13] MEDS: DOCUSATE SODIUM 100 MG CAP PO SCH (08:50)
[2021-03-13] MEDS: LUBIPROSTONE 8 MCG CAP PO SCH (08:51)
[2021-03-13] MEDS: ASCORBIC ACID 500 MG TAB PO SCH (08:52)
[2021-03-13] MEDS: OXYBUTYNIN CHLORIDE 5 MG TAB PO SCH (08:52)
[2021-03-13] MEDS: FERROUS SULFATE 325 MG TAB PO SCH (08:52)
[2021-03-13] MEDS: SERTRALINE HCL 100 MG TABLET PO SCH (08:53)
[2021-03-13] MEDS: buPROPion SR 100 MG TABCR PO SCH (08:53)
[2021-03-13] MEDS: RIVAROXABAN 10 MG TABLET PO SCH (08:54)
[2021-03-13] MEDS: MULTIVITAMIN TAB PO SCH (08:54)
[2021-03-13] MEDS: PANTOprazole 40 MG TAB PO SCH (08:54)
[2021-03-13] MEDS: CHOLECALCIFEROL 1,000 UNITS 25 MCG TAB PO SCH (08:55)
[2021-03-13] MEDS: GABAPENTIN 100 MG CAP PO SCH (08:56)
[2021-03-13] MEDS: FEXOFENADINE HCL 180 MG TAB PO SCH (08:56)
[2021-03-13] MEDS: FLUTICASONE PROPIONATE NA SPR 16 GM BTL SCH (08:57)
[2021-03-13] MEDS: GABAPENTIN 400 MG CAP PO SCH ×3 (08:58→15:37)
[2021-03-13] MEDS: POTASSIUM CHLORIDE CRTAB 20 MEQ TABCR PO SCH (10:23)
--- NOTE | 2021-03-13 14:32 | Hospitalist Progress Note ---
Date of Service March 13, 2021 Assessment & Plan (1) Primary osteoarthritis of left knee: Status post left TKA, POD #[address] Naye CHANCE 5ml tolerated procedure well Minimal pain at rest Pain/wound management per Ortho Activity and therapy as prescribed by Ortho Encourage incentive spirometry Pain seems to be reasonably controlled Hemoglobin remains stable as of 03/13/2021 (2) Bipolar disorder: Follows with psychiatry History of bipolar disorder, schizoaffective disorder, MIRANDA Patient on multiple psychiatric medications, QTC WNL Meds reviewed with patient and are accurate Continue amitriptyline, Wellbutrin, gabapentin, latuda, prazosin, Seroquel, Topamax, trazodone No acute symptoms (3) Asthma: No acute exacerbation Continue as needed albuterol Encourage incentive spirometry Chest remains clear on auscultation (4) DVT prophylaxis: Rivaroxaban per orthopedics Dispo: per primary PCP: Winnie Salas MD FULL CODE Medically stable Admission and Anticipated Discharge Date Admission Date: March 11, 2021 Subjective 03/13/2021 The patient was seen and examined in medical floor She is status post left total knee arthroplasty on seventh of this month Has been doing much better with some pain in the left knee Denies any other symptoms Review of Systems Review of Systems: All systems reviewed and are unremarkable except as noted below Musculoskeletal: + joint pain (Left knee pain with movement) Physical Exam Physical Exam: Sitting on a chair without any acute distress Constitutional: well developed, well nourished and + obese; not ill appearing Eyes: PERRL, conjunctivae normal, anicteric sclerae ENMT: external ear and nose normal, oropharynx normal Neck: trachea midline, no thyromegaly Respiratory: no respiratory distress Auscultation: lungs clear to auscultation bilaterally Cardiovascular: Rate/Rhythm: regular rate and regular rhythm Heart Sounds: no murmur Extremities: + edema (Trace edema bilaterally) Gastrointestinal (Abdomen): Inspection/Auscultation: normal bowel sounds; abdomen not distended Percussion/Palpation: abdomen soft; abdomen nontender Musculoskeletal: Knee: + knee abnormal to inspection (Left knee is bandaged, status post total arthroplasty) Neurologic: Alert, awake and oriented x3 Psychiatric: A+Ox3, euthymic affect Lymphatic: no cervical or axillary lymphadenopathy Results & Data Results & Data ([facility]) Vital Signs (Past 12 Hours) Vital Signs Temp Pulse Resp BP Pulse Ox 03/13/21 05:30 37.0 C 83 16 106/73 93 Laboratory Results Short CBC 03/13/21 Range/Units 07:39 WBC 14.35 H (4.8-10.8) K/uL Hgb 10.3 L (12.0-16.0) g/dL Hct 31.6 L (37-47) % Plt Count 169 (130-400) K/uL Medications Administered Current Inpatient Medications Acetaminophen (Acetaminophen 500 Mg Tab) 1,000 mg PO Q8 SYED Stop: 04/10/21 21:59 Last Admin: 03/13/21 14:07 Dose: 1,000 mg Documented by: Albuterol (Albuterol 0.083% Nebu Soln 3 Ml Vial) 2.5 mg INH QID PRN PRN Reason: Wheezing Stop: 04/10/21 16:24 Albuterol (Albuterol Hfa 8 Gm Inhaler) 1 puffs INH QID PRN PRN Reason: sob/wheezing Stop: 04/10/21 15:58 Amitriptyline HCl (Amitriptyline Hcl 10 Mg Tab) 10 mg PO HS SYED Stop: 04/10/21 20:59 Last Admin: 03/12/21 20:39 Dose: 10 mg Documented by: Ascorbic Acid (Ascorbic Acid 500 Mg Tab) 500 mg PO BID SYED Stop: 04/10/21 20:59 Last Admin: 03/13/21 08:52 Dose: 500 mg Documented by: Bisacodyl (Bisacodyl 10 Mg Supp) 10 mg [place] DAILY PRN PRN Reason: Constipation Stop: 04/10/21 15:52 Bupropion HCl (Bupropion Sr 100 Mg Tabcr) 200 mg PO BID SYED Stop: 04/10/21 20:59 Last Admin: 03/13/21 08:53 Dose: 200 mg Documented by: Docusate Sodium (Docusate Sodium 100 Mg Cap) 100 mg PO BID SYED Stop: 04/10/21 20:59 Last Admin: 03/13/21 08:50 Dose: Not Given Documented by: Donepezil HCl (Donepezil Hcl 5 Mg Tab) 5 mg PO HS SYED Stop: 04/10/21 20:59 Last Admin: 03/12/21 20:39 Dose: 5 mg Documented by: Ferrous Sulfate (Ferrous Sulfate 325 Mg Tab) 325 mg PO BID [facility] Stop: 04/10/21 20:59 Last Admin: 03/13/21 08:52 Dose: 325 mg Documented by: Fexofenadine HCl (Fexofenadine Hcl 180 Mg Tab) 180 mg PO QAM [facility] Stop: 04/11/21 08:59 Last Admin: 03/13/21 08:56 Dose: 180 mg Documented by: Fluticasone Propionate (Fluticasone Propionate Na Spr 16 Gm Btl) 2 sprays NA QAM SYED Stop: 04/11/21 08:59 Last Admin: 03/13/21 08:57 Dose: 2 sprays Documented by: Gabapentin (Gabapentin 100 Mg Cap) 100 mg PO QAM [facility] Stop: 04/11/21 08:59 Last Admin: 03/13/21 08:56 Dose: 100 mg Documented by: Gabapentin (Gabapentin 600 Mg Tab) 600 mg PO HS [facility] Stop: 04/10/21 20:59 Last Admin: 03/12/21 20:39 Dose: 600 mg Documented by: Gabapentin (Gabapentin 400 Mg Cap) 400 mg PO TID@0900,1200,1600 [facility] Stop: 04/11/21 08:59 Last Admin: 03/13/21 12:09 Dose: 400 mg Documented by: Hydromorphone HCl (Hydromorphone Inj 0.5 Mg/0.5 Ml Syr) 0.5 mg IV Q4H PRN PRN Reason: Pain or Pre PT Stop: 03/25/21 15:52 Last Admin: 03/11/21 16:01 Dose: 0.5 mg Documented by: Lubiprostone (Lubiprostone 8 Mcg Cap) 24 mcg PO BID [facility] Stop: 04/10/21 20:59 Last Admin: 03/13/21 08:51 Dose: 24 mcg Documented by: Lurasidone HCl (Lurasidone Hcl 40 Mg Tab) 40 mg PO QDD [facility] Stop: 04/10/21 16:29 Last Admin: 03/12/21 17:17 Dose: 40 mg Documented by: Magnesium Hydroxide (Magnesium Hydroxide Susp 30 Ml Udc) 30 ml PO Q6H PRN PRN Reason: Constipation Stop: 04/10/21 15:52 Metoclopramide HCl (Metoclopramide Hcl Inj 5 Mg/Ml 2 Ml Vial) 10 mg IV Q6H PRN PRN Reason: Nausea And Vomiting Stop: 04/10/21 15:52 Miscellaneous (Azelastine-Fluticasone Nasal [place]: Order Awaiting Action) 1 ea N/A QS [facility] Stop: 04/11/21 00:00 Last Admin: 03/13/21 08:57 Dose: Not Given Documented by: Montelukast Sodium (Montelukast Sodium 10 Mg Tablet) 10 mg PO QPM [facility] Stop: 04/10/21 20:59 Last Admin: 03/12/21 20:39 Dose: 10 mg Documented by: Multivitamins (Multivitamin Tab) 1 tab PO [facility] Stop: 04/11/21 08:59 Last Admin: 03/13/21 08:54 Dose: 1 tab Documented by: Naloxone HCl (Naloxone Hcl 0.4 Mg/1 Ml Vial/Carp) 0.1 mg IV Q5M PRN PRN Reason: Oversedation/Resp Depression Stop: 04/10/21 15:52 Ondansetron HCl (Ondansetron 4 Mg Od Tab) 8 mg PO Q8H PRN PRN Reason: Nausea Stop: 04/10/21 15:52 Ondansetron HCl (Ondansetron Inj 2 Mg/Ml 2 Ml Vial) 4 mg IV Q6H PRN PRN Reason: Nausea And Vomiting Stop: 04/10/21 15:52 Oxybutynin Chloride (Oxybutynin Chloride 5 Mg Tab) 5 mg PO BID [facility] Stop: 04/10/21 20:59 Last Admin: 03/13/21 08:52 Dose: 5 mg Documented by: Oxycodone HCl (Oxycodone Hcl Ir 5 Mg Tab (Immediate Release)) 5 - 10 mg PO Q4H PRN PRN Reason: Pain or Pre PT Stop: 03/25/21 15:52 Last Admin: 03/13/21 12:12 Dose: 10 mg Documented by: Pantoprazole Sodium (Pantoprazole 40 Mg Tab) 40 mg PO [facility] Stop: 04/11/21 08:59 Last Admin: 03/13/21 08:54 Dose: 40 mg Documented by: Potassium Chloride (Potassium Chloride Crtab 20 Meq Tabcr) 20 meq PO [facility] Stop: 04/11/21 08:59 Last Admin: 03/13/21 10:23 Dose: 20 meq Documented by: Prazosin HCl (Prazosin Hcl 1 Mg Cap) 2 mg PO [facility] Stop: 04/10/21 20:59 Last Admin: 03/12/21 20:40 Dose: 2 mg Documented by: Quetiapine Fumarate (Quetiapine Fumarate 25 Mg Tablet) 50 mg PO [facility] Stop: 04/10/21 20:59 Last Admin: 03/12/21 20:39 Dose: 50 mg Documented by: Rivaroxaban (Rivaroxaban 10 Mg Tablet) 10 mg PO DAILY [facility] Stop: 04/11/21 08:59 Last Admin: 03/13/21 08:54 Dose: 10 mg Documented by: Sennosides (Senna 8.6 Mg Tab) 17.2 mg PO [facility] Stop: 04/10/21 20:59 Last Admin: 03/12/21 20:35 Dose: Not Given Documented by: Sertraline HCl (Sertraline Hcl 100 Mg Tablet) 100 mg PO [facility] Stop: 04/11/21 08:59 Last Admin: 03/13/21 08:53 Dose: 100 mg Documented by: Sumatriptan Succinate (Sumatriptan Succinate 25 Mg Tab) 25 mg PO UD PRN PRN Reason: migraines Stop: 04/10/21 15:52 Topiramate (Topiramate 25 Mg Tab) 75 mg PO QDD [facility] Stop: 04/11/21 16:29 Last Admin: 03/12/21 17:18 Dose: 75 mg Documented by: Topiramate (Topiramate 50 Mg Tab) 50 mg PO [facility] Stop: 04/11/21 08:59 Last Admin: 03/13/21 08:50 Dose: 50 mg Documented by: Trazodone HCl (Trazodone Hcl 100 Mg Tab) 100 mg PO [facility] Stop: 04/10/21 20:59 Last Admin: 03/12/21 20:40 Dose: 100 mg Documented by: Vitamin D (Cholecalciferol 1,000 Units 25 Mcg Tab) 2,000 units PO [facility] Stop: 04/11/21 08:59 Last Admin: 03/13/21 08:55 Dose: 2,000 units Documented by:
--- NOTE | 2021-03-15 09:02 | Discharge Summary ---
Date of Service March 15, 2021 Admission HPI Per Admitting Provider 55 year old female with PMHx significant for asthma, GERD, anxiety, migraines who presents with ongoing left knee pain. Pain is interfering with her daily and leisure activity. She has failed conservative measures including cortisone and viscoelastic injections. Has done well with recent right knee replacement. She would like to proceed with left knee replacement. Patient denies headaches, sweats, fevers, chills, double vision, blurred vision, cough, sore throat, dysphagia, chest pain, sob, wheezing, n/v/d/c, numbness, tingling, fatigue, urinary symptoms, mood disorders. ROS positive for left knee pain and stiffness. Admission Exam Per Admitting Provider Constitutional: well developed and well nourished; no acute distress Eyes: PERRL, conjunctivae normal, anicteric sclerae ENMT: external ear and nose normal, oropharynx normal Neck: trachea midline, no thyromegaly Respiratory: normal respiratory effort, lungs clear to auscultation Cardiovascular: RRR, no murmur, no edema Musculoskeletal: Left knee: ROM 0-115. Crepitation noted. Positive Poly's. stable to valgus and varus stress. She has tenderness medial joint line. Varus alignment. Skin: no rashes, warm and dry Neurologic: patellar DTR's 2+ bilat, sensation intact Psychiatric: A+Ox3, euthymic affect Principal Diagnosis Left knee osteoarthritis Discharge Exam Constitutional well developed and well nourished; no acute distress Eyes PERRL, conjunctivae normal, anicteric sclerae ENMT external ear and nose normal, oropharynx normal Neck trachea midline, no thyromegaly Respiratory normal respiratory effort, lungs clear to auscultation Cardiovascular RRR, no murmur, no edema Skin no rashes, warm and dry Neurologic patellar DTR's 2+ bilat, sensation intact Psychiatric A+Ox3, euthymic affect Discharge Data Allergies Allergy/AdvReac Type Severity Reaction Status Date / Time amoxicillin [From Augmentin] AdvReac Intermediate Nausea Verified 03/11/21 07:56 clavulanic acid AdvReac Intermediate Nausea Verified 03/11/21 07:56 [From Augmentin] propranolol [From Inderal LA] AdvReac Intermediate Vertigo Verified 03/11/21 07: 56 Consultations 03/06/21 11:35 Consult Hospitalist Routine Procedures Performed Operation Date: 03/11/21 09:25 Actual Procedures p Left Total Knee Arthroplasty(Left) - Sonny Yancey MD Ordered Studies 03/11/21 05:00 US - OR guided needle placemen Routine Hospital Course (1) Primary osteoarthritis of left knee: Patient presented for same day admission following left total knee arthroplasty on 03/11/21. She tolerated procedure well. The Patient had an uneventful hospital course. Post-operatively, her activity was progressed and well tolerated. They participated in PT with ambulation distance 70 of feet. ROM of operative knee reached 73 degrees. Labs remained stable- lowest hemoglobin recorded: 10.3. Dr. Richey of medical service was consulted for medical management during admission. Pain controlled on oral medications. Please refer to daily progress notes and PT notes for complete details. After exam on 03/13/21, patient was felt to be stable for discharge to [facility]. Patient will f/u in the office in about 2 weeks for further evaluation including x-rays and incision check, sooner if having any issues or concerns. POD#2 left TKA -PT/OT -Pain management as written -DVT prophylaxis-SCDs, TEDs, Xarelto 10mg daily -D/C planning-Plan on inpatient rehab/SNF. Case management consult placed. [facility] unable to accept. Possible discharge to [facility]. Stable for discharge when accepted. Total Time Total Time Spent Total Time Spent (In Minutes): 20 Discharge Plan Discharge Items Patient Disposition: Transfer Assisted Fac Reason For Visit: Unilateral Primary Osteoarthritis Discharge Diagnosis: Left knee osteoarthritis Activity: Per Instructions section Non-emergency contact: Surgeon Call non-emergency contact if: you have any medication questions, your pain is not controlled, your pain is worsening, you have a fever, your temperature is above 101, your wound has increased redness and your wound has increased drainage Follow-up/Referrals: Winnie Salas MD [Primary Care Provider] - Diet: Regular Addtl Attending Provider Instructions: ACTIVITY RECOMMENDATIONS: SELF CARE INSTRUCTIONS AFTER TOTAL KNEE REPLACEMENT A. You may need to continue a physical therapy program after discharge from the hospital. There are several options available to you. Your doctor will assist you in selecting the best one for you. 1. An out-patient facility 2 to 3 times a week for therapy or home therapy. 2. Continue working on all exercises taught to you in the hospital. Your goals should be to increase bending of your knee to 90 degrees and beyond and to fully straighten your knee. B. You may progress at your own pace from walking with a walker or crutches to a cane; then to no assistive devices. C. Make walking a part of your daily routine. Be up as much as comfortable with rest periods throughout the day. Rest with leg elevation is very important. Use the ice wrap frequently for the first 3-4 weeks. D. There are no restrictions on activities. You may ride in a car, shop, participate in art museum aide and all social activities. E. Wear the long elastic stockings (LAVELL hose) 20 hours a day for 2 weeks after surgery. They can be removed several times a day for laundering and for a bath. F. You may shower, no tub baths until cleared by your doctor. SPECIAL CARE INSTRUCTIONS: VERY IMPORTANT TO READ AND REVIEW A. There are a few signs you need to watch for after you are home. Call [facility] if you notice any of the followin. Increased severe knee pain. Some pain is expected especially when you exercise. 2. Increased swelling in your leg or knee; pain or swelling of the calf muscle in either lower leg. 3. Any fluid drainage from the incision. 4. Shortness of breath or chest pain. B. Please call [facility] at if you have any concerns or questions about your operation or recovery. The doctor or his nurse will return your call promptly. C. You must take antibiotics before dental work, bladder, bowel or other surgery. Your doctor will provide you with a permanent care to carry describing this precaution. IMPORTANT: * REMEMBER TO TAKE ASPIRIN, 81 MG, TWICE DAILY FOR 4 WEEKS UNLESS OTHERWISE DIRECTED. THIS IS YOUR BLOOD THINNER. * HIGH RISK PATIENTS MAY BE PRESCRIBED A STRONGER BLOOD THINNER. THIS WILL BE PROVIDED AT DISCHARGE. * CALL IF INCREASED PAIN, REDNESS, DRAINAGE OR FEVER GREATER THAT 101. * WEAR LAVELL HOSE 20 HOURS PER DAY FOR 2 WEEKS. This is a large suction dressing covering your incision. This will help pull any excess drainage from the wound and allow your incision to heal properly. You may shower with this if you can keep the unit outside of the shower. If any bleeding or leakage is noted please call your doctor's office. This will remain on your incision for 7 days and then should be removed. This can be done yourself or by the home nursing staff if applicable. The entire unit is disposable once removed. Once removed, keep incision clean and dry. If redness or drainage is noted, please call your surgeon. IF INCISION IS LEAKING THROUGH DRESSING, CALL THE OFFICE . FOLLOW UP VISIT: If appointment is not already scheduled: Please call [facility] to make a follow-up appointment for 2 weeks after your surgery at . Pending Studies at Discharge: No Stand-Alone Forms: My [facility] [employer], Opioid Pain Management Skilled Items Patient informed of condition?: Yes DNR: No Discharge Level of Care: Skilled Communicable Disease: No Discharge Prognosis: Improving Lines: None Urinary Catheter: No Medications and DC Order Prescriptions: New Xarelto 10 mg Tablet 10 mg PO DAILY Qty: 30 RF: 0 oxycodone 5 mg Tablet 5 mg PO Q4H MDD 6 PRN (Reason: pain) Qty: 30 RF: 0 multivitamin [Daily-Scooter] Tablet 1 tab PO QAM 10 Days Qty: 10 RF: 0 acetaminophen [Tylenol Extra Strength] 500 mg Tablet 1,000 mg PO Q8 14 Days Qty: 84 RF: 0 bisacodyl 10 mg Suppository 10 mg DE DAILY PRN (Reason: constipation) 10 Days Qty: 10 RF: 0 docusate sodium 100 mg Capsule 100 mg PO BID 10 Days Qty: 20 RF: 0 Continued ferrous sulfate [Feosol] 325 mg (65 mg iron) tablet 325 mg PO BID Qty: 60 RF: 0 gabapentin 600 mg tablet 600 mg PO HS Qty: 30 RF: 2 trazodone 100 mg tablet 100 mg PO HS Qty: 90 RF: 3 meclizine 25 mg tablet 25 mg PO Q8 PRN (Reason: dizziness) Qty: 1 RF: 0 gabapentin 400 mg Capsule 400 mg PO TID RF: 0 gabapentin 100 mg Capsule 100 mg PO QAM RF: 0 sumatriptan succinate [Imitrex] 25 mg tablet 25 mg PO UD PRN (Reason: migraines) RF: 0 ascorbate calcium (vitamin C) 500 mg tablet 500 mg PO BID RF: 0 montelukast [Singulair] 10 mg tablet 10 mg PO QPM RF: 0 fluticasone propionate [Flonase Allergy Relief] 50 mcg/actuation spray,suspension 2 sprays INTNAS QAM RF: 0 prazosin 2 mg capsule 2 mg PO HS RF: 0 bupropion HCl [Wellbutrin SR] 200 mg tablet sustained-release 12 hr 200 mg PO BID RF: 0 potassium chloride 20 mEq tablet extended release 20 meq PO QAM RF: 0 albuterol sulfate 90 mcg/actuation aerosol powdr breath activated 1 puffs INH QID PRN (Reason: sob/wheezing) RF: 0 donepezil [Aricept] 5 mg Tablet 5 mg PO HS RF: 0 sertraline [Zoloft] 100 mg Tablet 100 mg PO QAM RF: 0 topiramate [Topamax] 25 mg Tablet 50 mg PO DAILY RF: 0 fexofenadine 180 mg Tablet 180 mg PO QAM RF: 0 quetiapine [Seroquel] 100 mg Tablet 50 mg PO HS RF: 0 pantoprazole 40 mg Tablet,Delayed Release (Dr/Ec) 40 mg PO QAM RF: 0 oxybutynin chloride 5 mg Tablet 5 mg PO BID RF: 0 lubiprostone [Amitiza] 24 mcg Capsule 24 mcg PO BID RF: 0 cholecalciferol (vitamin D3) [Vitamin D3] 50 mcg (2,000 unit) Capsule 50 mcg PO QAM RF: 0 amitriptyline 10 mg tablet 10 mg PO HS RF: 0 Latuda 20 mg Tablet 40 mg PO PM RF: 0 azelastine-fluticasone 137-50 mcg/spray [place],Non-Aerosol 1 spray INTRANASAL BID RF: 0 ondansetron HCl 8 mg Tablet 8 mg PO Q8H PRN (Reason: Nausea) RF: 0 albuterol sulfate 1.25 mg/3 mL Solution For Nebulization 1.25 mg INHALATION QID PRN (Reason: Wheezing) RF: 0 topiramate [Topamax] 25 mg Tablet 75 mg PO QPM RF: 0 Discontinued oxycodone-acetaminophen 7.5-325 mg Tablet 1 tab PO Q8H PRN (Reason: Pain) RF: 0 naproxen 500 mg Tablet 500 mg PO BID PRN (Reason: Pain) RF: 0 Discharge Orders: Discharge Order (Routine); Ordered 03/13/21 Ordered By: Arsen Mcgee/Other Patient Handouts: DVT Post Op Prevention, Total Knee Replacement, Knee Replacement Total Dc Admission Data Admit Date/Time: 03/11/21 12:32 Attending Provider: Sonny Yancey Admit Provider: Sonny Yancey Primary Care Provider: Winnie Salas Other Providers: Lizbeth Gama ; Brendan Jacob Other Interventions: Discharge Summary Assessment (RN) Last Done: 03/13/21 17:17
== END 2021-03-13 17:27 ==
LOC: PACUINP 07:26 → ASU 07:26 → 3E 16:20

== ENCOUNTER 2025-07-04 20:21 | Observation (INO) ==
[2025-07-04 21:43] LABS: Hematocrit (blood only) 35.5 % (37.0-47.0); Hemoglobin 12.0 g/dl (12.0-16.0); Immature Granulocytes # (auto) 0.03 K/uL (0.01-0.20); Immature Granulocytes % (auto) 0.3 %; Mean Corpuscular Hemoglobin 29.5 pg (25.0-34.0); Mean Corpuscular Volume 87.2 fL (80.0-100.0); Platelet Count 290 K/uL (130-400); RDW Standard Deviation 47.6 fL (36.4-46.3); Red Blood Count 4.07 M/uL (4.20-5.40); White Blood Count 8.86 K/ul (4.8-10.8)
[2025-07-04 22:02] LABS: Alanine Aminotransferase 16 U/L (7-52); Albumin Globulin Ratio 1.4 (0.9-2); Albumin Level 4.1 gm/dl (3.4-5.0); Alkaline Phosphatase 69 U/L (34-104); Anion Gap 8 (3-11); Bilirubin,Total 0.3 mg/dl (0.2-1.0); Blood Urea Nitrogen 15 mg/dl (6-23); Calcium 9.6 mg/dl (8.6-10.3); Carbon Dioxide 24 mmol/L (21-32); Chloride 109 mmol/L (98-107); Globulin 2.9 gm/dl (2.5-4.0); Glucose 107 mg/dl (70-99(Fasting)); Magnesium 1.8 mg/dl (1.7-2.4); Potassium 3.5 mmol/L (3.5-5.1); Sodium 141 mmol/L (136-145); Total Protein 7.0 gm/dl (6.0-8.3)
--- NOTE | 2025-07-04 22:46 | Emergency Department Note ---
Impression & Plan Tremor, unspecified, Dyskinesia, tardive ED Provider Note NAME: SUKHWINDER COLEY AGE: 59 SEX: F : 1965 ARRIVES VIA: Walk-In INFORMANT: Patient, sister ED PROVIDER(S): Lionel Mcginnis DO CHIEF COMPLAINT: tremors HPI: This is a 59-year-old female with the PMHx of asthma, OA, schizoaffective disorder and BPD presenting to [facility] for further evaluation of tremors. Patient is accompanied by her sister who provide additional history. The patient states that she has struggled with ongoing tremors that are worse in the face, head, neck and upper extremities over the course of the last month. Her sister is present at the bedside and primary caregiver. She is having trouble ambulating and performing ADLs secondary to her worsening spontaneous movements of the upper extremities and face. She states that she was diagnosed with tardive dyskinesia. They are aware that her symptoms are related to her medications including antipsychotics. They have trialed management at home but this seems to be worsening. She is reporting some upper back pain but no recent falls or trauma that she is aware of. They are concerned for her safety at home given her significant weakness and ambulatory dysfunction. Patient did note some left-sided facial paresthesias. She notes some weakness. She has had difficulty speaking secondary to her tardive dyskinesia. They deny fever or chills. No cough or congestion. Denies chest pain or palpitations. No shortness of breath. They deny abdominal pain, nausea and vomiting. No urinary complaints. No recent changes in bowel movements. Patient denies recent changes in medications or OTC supplements. Patient offers no other complaints, today. ADDITIONAL HISTORY OBTAINED: Per HPI Chronic Medical/Social Conditions Affecting Care: Per HPI PAST MEDICAL HISTORY: See Below PAST SURGICAL HISTORY: See Below FAMILY HISTORY: See Below SOCIAL HISTORY: See Below HOME MEDICATIONS: See Below ALLERGIES: See Below VITALS: See Below PHYSICAL EXAMINATION: GENERAL: Sitting up in bed, alert, well appearing, well nourished, no distress, non-toxic EYE EXAM: normal conjunctiva. PERRL and EOM's grossly intact. OROPHARYNX: no exudate, no erythema, lips, buccal mucosa, and tongue normal and mucous membranes are moist NECK: supple, no nuchal rigidity, no adenopathy, non-tender LUNGS: Clear to auscultation. Normal chest wall mechanics HEART: no murmurs, regular rate, regular rhythm ABDOMEN: abdomen soft, non-tender, no masses, no rebound or guarding. BACK: Back is symmetrical on inspection and there is no deformity, no midline tenderness, no CVA tenderness. SKIN: no rashes and no bruising UPPER EXTREMITIES: upper extremities are grossly normal. LOWER EXTREMITIES: No pitting edema. NEURO EXAM: Normal sensorium, GCS 15, normal speech, no gross weakness of arms, no gross weakness of legs. sensation is intact. Patient is able to move all 4 extremities. She has frequent involuntary movements of the upper extremities as well as the face and tongue. Patient has resting tremors. MEDICAL DECISION MAKING: Differential diagnoses includes but not limited to tardive dyskinesia, akathisia, dystonia, CVA, intracranial mass, electrolyte derangements, dehydration, ambulatory dysfunction, functional decline In summary, this is a 59 year old female who presented with involuntary movements. Differential as above. Nursing notes and pertinent past medical records reviewed. Vital signs reviewed and the patient is afebrile hemodynamically stable. Please note episodes of tachycardia are related to her tremor rather than true tachycardic rhythm. History and presentation revealed numerous psychiatric medications and prior diagnosis of tardive dyskinesia. Physical examination revealed as above. As a result of my initial evaluation, it does seem that the patient symptoms have been ongoing over the course the last month or so. I do believe that her physical examination is much consistent with tardive dyskinesia. Could also be some parkinsonianisms. Failing to thrive at this point unable to perform ADLs. At this point, it does seem to be more of a concern of her safety and fall risk. Do feel that she would benefit from inpatient rehabilitation services or possible fpc placement. Patient and her sister at the bedside are agreeable to this. Will obtain basic lab work. I did offer CT head scan and they were agreeable to this. I do suspect the primary issue is all medication related given her multiple antipsychotic medications. Patient completed laboratory studies and imaging. Results independently interpreted by me are no significant anemia, leukocytosis or thrombocytosis. Normal electrolytes and kidney function. LFTs are normal. Troponin normal. CTH independently interpreted by me reveals no evidence of ICH. No significant hydrocephalus. No major skull fractures. CTH does not demonstrate findings to suggest an etiology of the patient's symptoms or presentation, today. . The patient likely is experiencing tardive dyskinesia and possible parkinsonianism 2/2 psychiatric medications. At this point, there is a safety concern as well as issues with performing ADLs. I do feel the patient would benefit from rehabilitation services or possible fpc. Patient will require admission in order for this to occur. Patient is agreeable to this. Ultimately, the decision was made to admit the patient for Movement disorder likely secondary to psychiatric medications and tardive dyskinesia. I discussed the case with the hospitalist service via telephone/Tiger[employer] and they are agreeable to admit the patient to their services. Based on the above, including the patient's age, coexisting illnesses, labs, imaging, and exam findings the decision to treat as an inpatient. I discussed the patient with the hospitalist team who recommended admission to their services. They received the medications, treatments, interventions indicated above and their condition remained stable. I discussed my findings with the patient and their family and they understand and agree with the treatment plan. All patient / family questions were answered to their satisfaction. Consults/Care Managements Discussions: Per [facility] ER treatment provided: See above Procedures: none Critical Care: None The chart was completed utilizing [employer] Speech voice recognition software. Grammatical errors, random word insertions, pronoun errors, and incomplete sentences are an occasional consequence of this system due to software limitations, ambient noise, and hardware issues. Any formal questions or concerns about the content, text, or information contained within the body of this dictation should be directly addressed to the physician for clarification. Past Med/Surg History Problem List (Updated 07/05/25 @ 14:56 by Fifi Gallegos MD) Adjustment disorder with mixed anxiety and depressed mood Schizoaffective disorder Compression fracture of T8 vertebra Paresthesia Dyskinesia, tardive (Acute) Tremor, unspecified (Acute) Primary osteoarthritis of left knee Encounter for pre-operative examination Primary osteoarthritis of right knee DVT prophylaxis History of total right knee replacement Post traumatic stress disorder Bipolar disorder Asthma "controlled" Medical History Anxiety Asthma "controlled" Bipolar disorder Chronic back pain Claustrophobia Degenerative disc disease Depression GERD (gastroesophageal reflux disease) Controlled Memory loss mild short term Migraine Osteoarthritis Post traumatic stress disorder Surgical History H/O exploratory laparotomy removal of ectopic History of carpal tunnel surgery Left ulnar nerve surgery History of cholecystectomy History of endoscopic sinus surgery History of total knee replacement Right TKA (11/08/20): SAB x1 attempt + PNB at [facility] S/P BSO (bilateral salpingo-oophorectomy) S/P epidural steroid injection Family History Father Prostate cancer Brother Family history of diabetes mellitus Sister Family history of diabetes mellitus Social History Smoking Status: Never smoker Second Hand Exposure: Yes (FATHER SMOKED/FATHER IN LAW SMOKED); Do You Dip or Chew Tobacco: No; Hx Alcohol Use: No Hx Substance Use: No Preferred Language: Venezuelan Communication Ability: Effective Supervisor [employer] Processing Required: No Beliefs That Will Affect Care: None marital status: Unknown Current Living Situation: Family Current Living Situation Comment: home with sister current occupational status: disabled Other Information That Helps Us Care for You: No Feels Safe at Home: Yes Safety Concerns: Feels Safe At This Time Assistive Devices: CPAP and Glasses Allergies Allergies Allergy/AdvReac Type Severity Reaction Status Date / Time valbenazine [From Ingrezza] Allergy Severe SHORT OF Verified 07/04/25 22:41 BREATH/CHEST PAIN, TIGHTNESS amoxicillin [From Augmentin] AdvReac Intermediate NAUSEA/VOMI Verified 07/04/25 22:08 TING clavulanic acid AdvReac Intermediate Nausea Verified 07/04/25 22:08 [From Augmentin] propranolol [From Inderal LA] AdvReac Intermediate Vertigo Verified 07/04/25 22:08 SURGICAL ADELE Allergy Intermediate REACTION Uncoded 07/04/25 22:08 AFTER KNEE SURGERY TO ADELE USED Home Meds Home Medications Medication Instructions Recorded Confirmed albuterol sulfate 90 mcg/actuation 1 puffs inhalation Q4H PRN 10/22/20 07/04/25 breath activated powder inhaler sob/wheezing ascorbate calcium (vitamin C) 500 500 mg PO BID 10/22/20 07/04/25 mg tablet fluticasone propionate 50 2 sprays intranasal QAM 10/22/20 07/04/25 mcg/actuation nasal spray,suspension (Flonase Allergy Relief) gabapentin 400 mg capsule 400 mg PO QDL 10/22/20 07/04/25 montelukast 10 mg tablet 10 mg PO QAM 10/22/20 07/04/25 (Singulair) oxybutynin chloride 5 mg tablet 5 mg PO BID 10/22/20 07/04/25 pantoprazole 40 mg tablet,delayed 40 mg PO QAM 10/22/20 07/04/25 release prazosin 2 mg capsule 2 mg PO HS 10/22/20 07/04/25 aripiprazole 15 mg tablet (Abilify) 10 mg PO HS 07/04/25 07/05/25 azelastine 137 mcg (0.1 %) nasal 2 spray intranasal BID 07/04/25 07/04/25 spray bupropion HCl 100 mg tablet,12 hr 200 mg PO QPM 07/04/25 07/04/25 sustained-release bupropion HCl 150 mg tablet,12 hr 150 mg PO QAM 07/04/25 07/04/25 sustained-release deutetrabenazine 36 mg 36 mg PO DAILY 07/04/25 07/04/25 tablet,extended release 24 hr docusate sodium 100 mg capsule 100 mg PO QPM 07/04/25 07/04/25 donepezil 10 mg tablet 10 mg PO DAILY 07/04/25 07/04/25 fluoxetine 40 mg capsule 80 mg PO QAM 07/04/25 07/04/25 fluticasone furoate 200 1 inh inhalation DAILY 07/04/25 07/04/25 mcg-vilanterol 25 mcg/dose inhalation powder (Breo Ellipta) gabapentin 600 mg tablet 600 mg PO AMHS 07/04/25 07/04/25 hydroxyzine HCl 25 mg tablet 25 mg PO BID 07/04/25 07/04/25 lamotrigine 25 mg tablet (Lamictal) 75 mg PO AMHS 07/04/25 07/04/25 levocetirizine 5 mg tablet (Xyzal) 5 mg PO PM 07/04/25 07/04/25 meloxicam 7.5 mg tablet 7.5 mg PO BID 07/04/25 07/04/25 memantine 10 mg tablet 10 mg PO DAILY 07/04/25 07/04/25 ondansetron HCl 4 mg tablet 4 mg PO Q8H PRN NAUSEA/VOMITING 07/04/25 07/04/25 prazosin 1 mg capsule 1 mg PO HS 07/04/25 07/04/25 ropinirole 0.25 mg tablet 0.25 mg PO TID 07/04/25 07/04/25 spironolactone 25 mg tablet 25 mg PO QAM 07/04/25 07/04/25 topiramate 50 mg tablet 50 mg PO QAM 07/04/25 07/04/25 topiramate 50 mg tablet 75 mg PO HS 07/04/25 07/04/25 torsemide 10 mg tablet 10 mg PO QAM 07/04/25 07/04/25 trazodone 50 mg tablet 50 mg PO HS PRN Sleep 07/04/25 07/04/25 Results & Data (ED) Vital Signs Vital Signs - 24 hr 07/04/25 20:27 Temperature 36.9 C Temperature Source Oral Pulse Rate 101 H Respiratory Rate 18 Respiratory Effort / Characteristics Non-Labored Spontaneous Respiratory Depth Normal Respiratory Pattern Regular Blood Pressure 129/63 Blood Pressure Mean 85 Blood Pressure Position Sitting Pulse Oximetry 92 Oxygen Delivery Method Room Air Sepsis Recent Fever Within 48 Hours No Sepsis New/Unexplained Change in Mental Status N/A Sepsis Action Taken by Nursing No Action Required Laboratory Data 07/05/25 05:06 07/05/25 05:06 Lab Results 07/04/25 Range/Units 21:15 WBC 8.86 (4.8-10.8) K/ul RBC 4.07 L (4.20-5.40) M/uL Hgb 12.0 (12.0-16.0) g/dl Hct 35.5 L (37.0-47.0) % MCV 87.2 (80.0-100.0) fL MCH 29.5 (25.0-34.0) pg MCHC 33.8 (32.0-36.0) g/dL RDW Std Deviation 47.6 H (36.4-46.3) fL RDW Coeff of Bridgett 14.8 H (11.5-14.5) % Plt Count 290 (130-400) K/uL MPV 9.1 L (9.4-12.4) fL Immature Gran % (Auto) 0.3 % Neut % (Auto) 60.6 % Lymph % (Auto) 26.2 % Ritchie % (Auto) 9.9 % Eos % (Auto) 2.3 % Baso % (Auto) 0.7 % Neut # (Auto) 5.37 (1.40-6.50) K/uL Lymph # (Auto) 2.32 (1.20-3.40) K/uL Ritchie # (Auto) 0.88 H (0.11-0.59) K/uL Eos # (Auto) 0.20 (0.00-0.50) K/uL Baso # (Auto) 0.06 (0.00-0.20) K/uL Immature Gran # (Auto) 0.03 (0.01-0.20) K/uL D-Dimer 1590 H* (0-500) ug/L FEU Sodium 141 (136-145) mmol/L Potassium 3.5 (3.5-5.1) mmol/L Chloride 109 H (98-107) mmol/L Carbon Dioxide 24 (21-32) mmol/L Anion Gap 8 (3-11) BUN 15 (6-23) mg/dl Creatinine 1.01 (0.6-1.2) mg/dl Est Cr Clr Drug Dosing Not Reportable eGFR 64.93 BUN/Creatinine Ratio 14.9 (10-20) Glucose 107 H (70-99(Fasting)) mg/dl Calcium 9.6 (8.6-10.3) mg/dl Magnesium 1.8 (1.7-2.4) mg/dl Total Bilirubin 0.3 (0.2-1.0) mg/dl AST 24 (13-39) U/L ALT 16 (7-52) U/L Alkaline Phosphatase 69 (34-104) U/L Troponin I High Sens 3.0 (0-14) pg/ml Total Protein 7.0 (6.0-8.3) gm/dl Albumin 4.1 (3.4-5.0) gm/dl Globulin 2.9 (2.5-4.0) gm/dl Albumin/Globulin Ratio 1.4 (0.9-2) Administered Medications Aripiprazole (Aripiprazole 10 Mg Tab) 10 mg PO HS SYED Stop: 08/04/25 02:44 Last Admin: 07/05/25 03:40 Dose: 10 mg Documented By: HENRI Ascorbic Acid (Ascorbic Acid 500 Mg Tab) 500 mg PO BID [facility] Stop: 08/04/25 08:59 Last Admin: 07/05/25 10:02 Dose: 500 mg Documented By: LINSEY Azelastine HCl (Azelastine Hcl 0.1% Nasal 200 Sprays/27,400 Mcg Btl) 2 sprays NA BID [facility] Stop: 08/04/25 08:59 Last Admin: 07/05/25 10:02 Dose: 2 sprays Documented By: LINSEY Bupropion HCl (Bupropion Sr 150 Mg Tabcr) 150 mg PO QAM [facility] Stop: 08/04/25 08:59 Last Admin: 07/05/25 10:01 Dose: 150 mg Documented By: LINSEY Donepezil HCl (Donepezil Hcl 10 Mg Tab) 10 mg PO DAILY [facility] Stop: 08/04/25 08:59 Last Admin: 07/05/25 09:59 Dose: 10 mg Documented By: LINSEY Fluoxetine HCl (Fluoxetine Hcl 20 Mg Cap) 80 mg PO QAM [facility] Stop: 08/04/25 08:59 Last Admin: 07/05/25 09:54 Dose: 80 mg Documented By: LINSEY Fluticasone Propionate (Fluticasone Propionate Na Spr 16 Gm Btl) 2 sprays NA QAM [facility] Stop: 08/04/25 08:59 Last Admin: 07/05/25 10:04 Dose: 2 sprays Documented By: LINSEY Fluticasone/Vilanterol (Fluticasone/Vilanterol 200/25mcg 14 Puffs/Inhaler) 1 puffs INH DAILY [facility] Stop: 08/04/25 08:59 Last Admin: 07/05/25 10:03 Dose: 1 puffs Documented By: LINSEY Gabapentin (Gabapentin 600 Mg Tab) 600 mg PO AMHS [facility] Stop: 08/04/25 08:59 Last Admin: 07/05/25 09:57 Dose: 600 mg Documented By: LINSEY Gabapentin (Gabapentin 400 Mg Cap) 400 mg PO QDL [facility] Stop: 08/04/25 11:29 Last Admin: 07/05/25 11:41 Dose: 400 mg Documented By: LINSEY Hydroxyzine HCl (Hydroxyzine Hcl 25 Mg Tab) 25 mg PO BID [facility] Stop: 08/04/25 08:59 Last Admin: 07/05/25 09:59 Dose: 25 mg Documented By: LINSEY Lamotrigine (Lamotrigine 25 Mg Tab) 75 mg PO [facility]; Protocol Stop: 08/04/25 08:59 Last Admin: 07/05/25 09:56 Dose: 75 mg Documented By: LINSEY Memantine (Memantine Hcl 10 Mg Tab) 10 mg PO DAILY [facility] Stop: 08/04/25 08:59 Last Admin: 07/05/25 10:00 Dose: 10 mg Documented By: LINSEY Miscellaneous (Austedo 36mg--Order Awaiting Action) 1 each N/A QS [facility] Stop: 08/04/25 07:59 Last Admin: 07/05/25 11:23 Dose: Not Given Documented By: LINSEY Montelukast Sodium (Montelukast Sodium 10 Mg Tablet) 10 mg PO [facility] Stop: 08/04/25 08:59 Last Admin: 07/05/25 09:56 Dose: 10 mg Documented By: LINSEY Oxybutynin Chloride (Oxybutynin Chloride 5 Mg Tab) 5 mg PO BID [facility] Stop: 08/04/25 08:59 Last Admin: 07/05/25 09:59 Dose: 5 mg Documented By: LINSEY Pantoprazole Sodium (Pantoprazole 40 Mg Tab) [facility] Stop: 08/04/25 08:59 Last Admin: 07/05/25 10:00 Dose: 40 mg Documented By: LINSEY Ropinirole HCl (Ropinirole Hcl 0.25 Mg Tablet) 0.25 mg PO TID [facility] Stop: 08/04/25 08:59 Last Admin: 07/05/25 13:08 Dose: 0.25 mg Documented By: Admin: 07/05/25 09:58 Dose: 0.25 mg Documented By: LINSEY Spironolactone (Spironolactone 25 Mg Tab) [facility] Stop: 08/04/25 08:59 Last Admin: 07/05/25 09:58 Dose: 25 mg Documented By: LINSEY Topiramate (Topiramate 50 Mg Tab) 50 mg PO [facility] Stop: 08/04/25 08:59 Last Admin: 07/05/25 10:00 Dose: 50 mg Documented By: LINSEY Torsemide (Torsemide 10 Mg Tab) [facility] Stop: 08/04/25 08:59 Last Admin: 07/05/25 10:01 Dose: 10 mg Documented By: LINSEY Discontinued Medications Aripiprazole (Aripiprazole 15 Mg Tab) 15 mg PO NOW STA Stop: 07/04/25 23:38 Last Admin: 07/05/25 00:50 Dose: Not Given Documented By: HENRI Bupropion HCl (Bupropion Hcl 100 Mg Tablet) 200 mg PO NOW STA Stop: 07/04/25 23:38 Last Admin: 07/05/25 00:49 Dose: Not Given Documented By: HENRI Clonazepam (Clonazepam 0.5 Mg Tab) 0.5 mg PO NOW STA Stop: 07/04/25 23:38 Last Admin: 07/05/25 00:50 Dose: 0.5 mg Documented By: HENRI Enoxaparin Sodium (Enoxaparin Inj 40 Mg/0.4 Ml Syr) 40 mg SQ NOW ONE Stop: 07/05/25 03:01 Last Admin: 07/05/25 03:45 Dose: 40 mg Documented By: HENRI Gabapentin (Gabapentin 600 Mg Tab) 600 mg PO NOW STA Stop: 07/04/25 23:38 Last Admin: 07/05/25 00:51 Dose: 600 mg Documented By: HENRI Acetaminophen (Ofirmev) 1,000 mg in 100 mls @ 400 mls/hr IV NOW STA Stop: 07/04/25 23:40 Last Infusion: 07/05/25 01:25 Dose: Infused Documented By: Admin: 07/05/25 01:10 Dose: 400 mls/hr Documented By: HENRI Sodium Chloride (Nss) 1,000 mls @ 80 mls/hr IV .[id number] [facility] Stop: 07/05/25 14:52 Last Admin: 07/05/25 03:40 Dose: 80 mls/hr Documented By: HENRI Ioversol (Optiray 320 125ml) 112 ml IV ONCE ONE Stop: 07/05/25 09:44 Last Admin: 07/05/25 09:44 Dose: 112 ml Documented By: MAHESH Lamotrigine (Lamotrigine 25 Mg Tab) 75 mg PO NOW STA; Protocol Stop: 07/04/25 23:38 Last Admin: 07/05/25 00:42 Dose: 75 mg Documented By: HENRI Miscellaneous (Patient's Height &/Or Weight Needed) 1 each N/A Q2H STA Stop: 07/04/25 23:48 Last Admin: 07/05/25 02:17 Dose: Not Given Documented By: HENRI Potassium Chloride (Potassium Chloride 10 Meq Tabcr) 40 meq PO ONE ONE Stop: 07/05/25 07:47 Last Admin: 07/05/25 10:06 Dose: Not Given Documented By: LINSEY Potassium Chloride (Potassium Chloride 20 Meq/15 Ml Udc) 40 meq PO ONE ONE Stop: 07/05/25 08:04 Last Admin: 07/05/25 08:51 Dose: 40 meq Documented By: LINSEY Prazosin HCl (Prazosin Hcl 1 Mg Cap) 3 mg PO NOW STA Stop: 07/04/25 23:38 Last Admin: 07/05/25 00:45 Dose: 3 mg Documented By: HENRI Ropinirole HCl (Ropinirole Hcl 0.25 Mg Tablet) 0.25 mg PO NOW STA Stop: 07/04/25 23:38 Last Admin: 07/05/25 00:44 Dose: 0.25 mg Documented By: HENRI Topiramate (Topiramate 25 Mg Tab) 75 mg PO NOW STA Stop: 07/04/25 23:38 Last Admin: 07/05/25 00:50 Dose: 75 mg Documented By: HENRI Trihexyphenidyl HCl (Trihexyphenidyl Hcl 2 Mg Tab) 2 mg PO NOW STA Stop: 07/04/25 23:38 Last Admin: 07/05/25 00:49 Dose: Not Given Documented By: HENRI Imaging Data Radiologist's Impression: Head CT 07/04/25 21:04 Exam(s): CT HEAD Without Contrast EXAM: CT Head Without Intravenous Contrast CLINICAL HISTORY: Reason for exam: severe TD, R facial numbness. TECHNIQUE: Axial computed tomography images of the head/brain without intravenous contrast. CTDI is 62.75 mGy and DLP is 1237.72 mGy-cm. Automated exposure control was utilized for the study. A dose lowering technique was utilized adhering to the principles of ALARA. COMPARISON: No relevant prior studies available. FINDINGS: Artifacts: Images are slightly degraded by motion artifact. Brain: No hemorrhage, extra-axial fluid collection, mass effect, or edema. Ventricles: Unremarkable. Bones/joints: Unremarkable. No fracture. Soft tissues: Unremarkable. Sinuses: No acute sinusitis. Mastoid air cells: Unremarkable as visualized. IMPRESSION: 1. No acute intracranial abnormality. Electronically signed by: Mandeep Betts MD 07/04/25 23:24 PM Discharge Plan Visit Data Chief Complaint: Referred by Doctor Stated Complaint: REF BY ED Provider: Lionel Mcginnis Discharge Problem: Tremor, unspecified, Dyskinesia, tardive Patient Disposition: Admitted As Inpatient Condition: Fair Discharge Instructions Interventions: ED Discharge Assessment Last Done: 07/05/25 02:24
--- NOTE | 2025-07-04 23:25 | CT Scan Report ---
Exam(s): CT HEAD Without Contrast EXAM: CT Head Without Intravenous Contrast CLINICAL HISTORY: Reason for exam: severe TD, R facial numbness. TECHNIQUE: Axial computed tomography images of the head/brain without intravenous contrast. CTDI is 62.75 mGy and DLP is 1237.72 mGy-cm. Automated exposure control was utilized for the study. A dose lowering technique was utilized adhering to the principles of ALARA. COMPARISON: No relevant prior studies available. FINDINGS: Artifacts: Images are slightly degraded by motion artifact. Brain: No hemorrhage, extra-axial fluid collection, mass effect, or edema. Ventricles: Unremarkable. Bones/joints: Unremarkable. No fracture. Soft tissues: Unremarkable. Sinuses: No acute sinusitis. Mastoid air cells: Unremarkable as visualized. IMPRESSION: 1. No acute intracranial abnormality. Electronically signed by: Mandeep Betts MD 07/04/25 23:24 PM
--- NOTE | 2025-07-04 23:46 | History & Physical Report ---
Date of Service July 04, 2025 Assessment & Plan (1) Tremor, unspecified: Plan: 59-year-old female with past medical history significant for mild persistent asthma, obstructive sleep apnea, history of sinusitis, chronic heart failure with preserved ejection fraction, moderate mitral regurgitation, obesity, GERD, chronic constipation, history of right ovarian mass, degenerative disc disease, sciatica, tardive dyskinesia, chronic pain syndrome, chronic neck pain, anemia, bipolar 2 disorder, schizoaffective disorder bipolar type, schizoaffective disorder depression type, major depression, generalized anxiety disorder, mild cognitive impairment, generalized weakness, presents with ongoing tremors. Patient states she is having tremors for several weeks but last week they got worse. Since last 1 week she is also had some tingliness on the left side of the face. Also some left ear pain. She says she is also having slurred speech for the last couple of weeks. Having headaches. Having back pain. Having right-sided chest pain on and off for 1 to 2 weeks. Has dry cough. Complains of shortness of breath. Lately having some difficulty swallowing. Scratchy throat. No runny nose. Afebrile. Patient states her vision she cannot focus. No nausea or abdominal pain. States last couple of days not micturated much.Normal bowel movements. Ambulates with walker. Lately having difficulty ambulating. Lives with her sister. She was in the [place] ER yesterday for similar complaints. Currently having a lot of tremors in the upper extremities and face. Hemodynamics okay. Tremors uncontrolled Mainly of upper extremities and some face Complains of some tingliness on left side of the face has left ear pain- no erythema or drainge seen Tremors going on for several weeks but got worse in last 1 week History of tardive dyskinesia On multiple psychiatric medications CT head is okay Labs are okay Will continue home medication of deutetrabenazine Will give a dose of Klonopin Neurology consult in a.m. for further recommendation Psychiatry consult to help with psych medications Chest pain Right-sided On and off for a week Will check troponins and D-dimers and repeat EKG Shortness of breath and cough Will follow chest x-ray and procalcitonin and d dimer Complains of slurred speech Going on for a week Currently speech seems to be okay CT head is okay Probably with ongoing tremors Neuro consult Difficulty swallowing Patient states lately has some difficulty swallowing Will place on full liquid diet Speech consult in a.m. Heart failure with preserved function Moderate mitral regurgitation Has lower extremity edema Continue home torsemide and spironolactone Will check Dopplers Monitor for volume overload History of mild present asthma Continue home inhalers Obstructive sleep apnea CPAP nightly Chronic pain Hold meloxicam Continue gabapentin Tylenol as needed Mild cognitive impairment On memantine and donepezil Schizoaffective disorder Bipolar 2 disorder General Anxiety disorder Depression Continue current home medications Psychiatry to help with adjustment of medication History of left ovarian borderline tumor Status post bilateral salpingo-oophorectomy in 2019 DVT prophylaxis Lovenox Disposition Med/telemetry Full code History of Present Illness Chief Complaint: Tremors Primary Care Provider: Christina Govea DO 59-year-old female with past medical history significant for mild persistent asthma, obstructive sleep apnea, history of sinusitis, chronic heart failure with preserved ejection fraction, moderate mitral regurgitation, obesity, GERD, chronic constipation, history of right ovarian mass, degenerative disc disease, sciatica, tardive dyskinesia, chronic pain syndrome, chronic neck pain, anemia, bipolar 2 disorder, schizoaffective disorder bipolar type, schizoaffective disorder depression type, major depression, generalized anxiety disorder, mild cognitive impairment, generalized weakness, presents with ongoing tremors. Patient states she is having tremors for several weeks but last week they got worse. Since last 1 week she is also had some tingliness on the left side of the face. Also some left ear pain. She says she is also having slurred speech for the last couple of weeks. Having headaches. Having back pain. Having right-sided chest pain on and off for 1 to 2 weeks. Has dry cough. Complains of shortness of breath. Lately having some difficulty swallowing. Scratchy throat. No runny nose. Afebrile. Patient states her vision she cannot focus. No nausea or abdominal pain. States last couple of days not micturated much.Normal bowel movements. Ambulates with walker. Lately having difficulty a mbulating. Lives with her sister. She was in the [place] ER yesterday for similar complaints. Currently having a lot of tremors in the upper extremities and face. Hemodynamics okay. Past medical history. As mentioned above Past surgical history. Left carpal tunnel surgery. Bilateral knee replacements. Injection lumbosacral spine. Laparoscopic cholecystectomy. Laparoscopic oophorectomy bilateral. Repair nasal septal defect. Treatment of ectopic . Social history. No smoking. No alcohol use. No drug use. Family history. Sister has allergies. Sister has pacemaker. Sister has asthma. Maternal aunt had cancer. Paternal aunt had cancer. Brother has diabetes. Brother has liver disease. Mother had pancreatic cancer. Father had prostate cancer. Allergies Allergy/AdvReac Type Severity Reaction Status Date / Time valbenazine [From Ingrezza] Allergy Severe SHORT OF Verified 07/04/25 22:41 BREATH/CHEST PAIN, TIGHTNESS amoxicillin [From Augmentin] AdvReac Intermediate NAUSEA/VOMI Verified 07/04/25 22:08 TING clavulanic acid AdvReac Intermediate Nausea Verified 07/04/25 22:08 [From Augmentin] propranolol [From Inderal LA] AdvReac Intermediate Vertigo Verified 07/04/25 22:08 SURGICAL ADELE Allergy Intermediate REACTION Uncoded 07/04/25 22:08 AFTER KNEE SURGERY TO ADELE USED Home Medications Medication Instructions Recorded Confirmed Type albuterol sulfate 90 mcg/actuation 1 puffs inhalation Q4H PRN 10/22/20 07/04/25 History breath activated powder inhaler sob/wheezing ascorbate calcium (vitamin C) 500 500 mg PO BID 10/22/20 07/04/25 History mg tablet fluticasone propionate 50 2 sprays intranasal QAM 10/22/20 07/04/25 History mcg/actuation nasal spray,suspension (Flonase Allergy Relief) gabapentin 400 mg capsule 400 mg PO QDL 10/22/20 07/04/25 History montelukast 10 mg tablet 10 mg PO QAM 10/22/20 07/04/25 History (Singulair) oxybutynin chloride 5 mg tablet 5 mg PO BID 10/22/20 07/04/25 History pantoprazole 40 mg tablet,delayed 40 mg PO QAM 10/22/20 07/04/25 History release prazosin 2 mg capsule 2 mg PO HS 10/22/20 07/04/25 History aripiprazole 15 mg tablet (Abilify) 15 mg PO HS 07/04/25 07/04/25 History azelastine 137 mcg (0.1 %) nasal 2 spray intranasal BID 07/04/25 07/04/25 History spray bupropion HCl 100 mg tablet,12 hr 200 mg PO QPM 07/04/25 07/04/25 History sustained-release bupropion HCl 150 mg tablet,12 hr 150 mg PO QAM 07/04/25 07/04/25 History sustained-release deutetrabenazine 36 mg 36 mg PO DAILY 07/04/25 07/04/25 History tablet,extended release 24 hr docusate sodium 100 mg capsule 100 mg PO QPM 07/04/25 07/04/25 History donepezil 10 mg tablet 10 mg PO DAILY 07/04/25 07/04/25 History fluoxetine 40 mg capsule 80 mg PO QAM 07/04/25 07/04/25 History fluticasone furoate 200 1 inh inhalation DAILY 07/04/25 07/04/25 History mcg-vilanterol 25 mcg/dose inhalation powder (Breo Ellipta) gabapentin 600 mg tablet 600 mg PO AMHS 07/04/25 07/04/25 History hydroxyzine HCl 25 mg tablet 25 mg PO BID 07/04/25 07/04/25 History lamotrigine 25 mg tablet (Lamictal) 75 mg PO AMHS 07/04/25 07/04/25 History levocetirizine 5 mg tablet (Xyzal) 5 mg PO PM 07/04/25 07/04/25 History meloxicam 7.5 mg tablet 7.5 mg PO BID 07/04/25 07/04/25 History memantine 10 mg tablet 10 mg PO DAILY 07/04/25 07/04/25 History ondansetron HCl 4 mg tablet 4 mg PO Q8H PRN NAUSEA/VOMITING 07/04/25 07/04/25 History prazosin 1 mg capsule 1 mg PO HS 07/04/25 07/04/25 History ropinirole 0.25 mg tablet 0.25 mg PO TID 07/04/25 07/04/25 History spironolactone 25 mg tablet 25 mg PO QAM 07/04/25 07/04/25 History topiramate 50 mg tablet 50 mg PO QAM 07/04/25 07/04/25 History topiramate 50 mg tablet 75 mg PO HS 07/04/25 07/04/25 History torsemide 10 mg tablet 10 mg PO QAM 07/04/25 07/04/25 History trazodone 50 mg tablet 50 mg PO HS PRN Sleep 07/04/25 07/04/25 History trihexyphenidyl 2 mg tablet 2 mg PO BIDM 07/04/25 07/04/25 History Past Med/Surg History Problem List (Updated 07/05/25 @ 00:01 by Remigio Munoz MD) Tremor, unspecified Primary osteoarthritis of left knee Encounter for pre-operative examination Primary osteoarthritis of right knee DVT prophylaxis History of total right knee replacement Post traumatic stress disorder Bipolar disorder Asthma "controlled" Medical History Anxiety Asthma "controlled" Bipolar disorder Chronic back pain Claustrophobia Degenerative disc disease Depression GERD (gastroesophageal reflux disease) Controlled Memory loss mild short term Migraine Osteoarthritis Post traumatic stress disorder Surgical History H/O exploratory laparotomy removal of ectopic History of carpal tunnel surgery Left ulnar nerve surgery History of cholecystectomy History of endoscopic sinus surgery History of total knee replacement Right TKA (11/08/20): SAB x1 attempt + PNB at [facility] S/P BSO (bilateral salpingo-oophorectomy) S/P epidural steroid injection Family History Father Prostate cancer Brother Family history of diabetes mellitus Sister Family history of diabetes mellitus Social History Smoking Status: Never smoker Second Hand Exposure: Yes (FATHER SMOKED/FATHER IN LAW SMOKED); Do You Dip or Chew Tobacco: No; Hx Alcohol Use: No Hx Substance Use: Yes Preferred Language: Hungarian Communication Ability: Effective Bakery Supervisor Required: No Beliefs That Will Affect Care: None marital status: Unknown Current Living Situation: Family Current Living Situation Comment: lives with sister current occupational status: disabled Feels Safe at Home: Yes Assistive Devices: Walker Review of Systems Review of Systems: All systems reviewed & are unremarkable except as noted in HPI & below Physical Exam Physical Exam: General- Not in acute distress. Having tremors Head- atraumatic Eyes- PERRL. Ear; No erythema or drainage seen ENT- oropharynx clear Neck- supple, no JVD. Lungs- clear to auscultation no wheezing or crackles Heart- regular rhythm; no murmur, no gallop. Abdomen- normal bowel sounds, soft, nontender, no distension Extremities- b/l lower extremity edema present, no erythema seen Neuro- alert, Oriented x 3. Having significant tremors in upper extremities PERRL no facial palsy; no dysarthria; motor 5/5 upper extremity 2-3/5 lower extremity ; no pronator drift, co ordination of movements normal sensations intact Results & Data Results & Data Vital Signs (Past 12 Hours) Vital Signs Temp Pulse Resp BP Pulse Ox O2 Del Method 07/04/25 20:27 36.9 C 101 H 18 129/63 92 Room Air Diagnostic Findings Laboratory Results WBC 8.86 K/ul (4.8-10.8) 07/04/25 21:15 RBC 4.07 M/uL (4.20-5.40) L 07/04/25 21:15 Hgb 12.0 g/dl (12.0-16.0) 07/04/25 21:15 Hct 35.5 % (37.0-47.0) L 07/04/25 21:15 MCV 87.2 fL (80.0-100.0) 07/04/25 21:15 MCH 29.5 pg (25.0-34.0) 07/04/25 21:15 MCHC 33.8 g/dL (32.0-36.0) 07/04/25 21:15 RDW Std Deviation 47.6 fL (36.4-46.3) H 07/04/25 21:15 RDW Coeff of Bridgett 14.8 % (11.5-14.5) H 07/04/25 21:15 Plt Count 290 K/uL (130-400) 07/04/25 21:15 MPV 9.1 fL (9.4-12.4) L 07/04/25 21:15 Immature Gran % (Auto) 0.3 % 07/04/25 21:15 Neut % (Auto) 60.6 % 07/04/25 21:15 Lymph % (Auto) 26.2 % 07/04/25 21:15 Day % (Auto) 9.9 % 07/04/25 21:15 Eos % (Auto) 2.3 % 07/04/25 21:15 Baso % (Auto) 0.7 % 07/04/25 21:15 Neut # (Auto) 5.37 K/uL (1.40-6.50) 07/04/25 21:15 Lymph # (Auto) 2.32 K/uL (1.20-3.40) 07/04/25 21:15 Day # (Auto) 0.88 K/uL (0.11-0.59) H 07/04/25 21:15 Eos # (Auto) 0.20 K/uL (0.00-0.50) 07/04/25 21:15 Baso # (Auto) 0.06 K/uL (0.00-0.20) 07/04/25 21:15 Immature Gran # (Auto) 0.03 K/uL (0.01-0.20) 07/04/25 21:15 Sodium 141 mmol/L (136-145) 07/04/25 21:15 Potassium 3.5 mmol/L (3.5-5.1) 07/04/25 21:15 Chloride 109 mmol/L (98-107) H 07/04/25 21:15 Carbon Dioxide 24 mmol/L (21-32) 07/04/25 21:15 Anion Gap 8 (3-11) 07/04/25 21:15 BUN 15 mg/dl (6-23) 07/04/25 21:15 Creatinine 1.01 mg/dl (0.6-1.2) 07/04/25 21:15 Est Cr Clr Drug Dosing Not Reportable 07/04/25 21:15 eGFR 64.93 07/04/25 21:15 BUN/Creatinine Ratio 14.9 (10-20) 07/04/25 21:15 Glucose 107 mg/dl (70-99(Fasting)) H 07/04/25 21:15 Calcium 9.6 mg/dl (8.6-10.3) 07/04/25 21:15 Magnesium 1.8 mg/dl (1.7-2.4) 07/04/25 21:15 Total Bilirubin 0.3 mg/dl (0.2-1.0) 07/04/25 21:15 AST 24 U/L (13-39) 07/04/25 21:15 ALT 16 U/L (7-52) 07/04/25 21:15 Alkaline Phosphatase 69 U/L (34-104) 07/04/25 21:15 Total Protein 7.0 gm/dl (6.0-8.3) 07/04/25 21:15 Albumin 4.1 gm/dl (3.4-5.0) 07/04/25 21:15 Globulin 2.9 gm/dl (2.5-4.0) 07/04/25 21:15 Albumin/Globulin Ratio 1.4 (0.9-2) 07/04/25 21:[address] 07/04/25 21:04 Exam(s): CT HEAD Without Contrast EXAM: CT Head Without Intravenous Contrast CLINICAL HISTORY: Reason for exam: severe TD, R facial numbness. TECHNIQUE: Axial computed tomography images of the head/brain without intravenous contrast. CTDI is 62.75 mGy and DLP is 1237.72 mGy-cm. Automated exposure control was utilized for the study. A dose lowering technique was utilized adhering to the principles of ALARA. COMPARISON: No relevant prior studies available. FINDINGS: Artifacts: Images are slightly degraded by motion artifact. Brain: No hemorrhage, extra-axial fluid collection, mass effect, or edema. Ventricles: Unremarkable. Bones/joints: Unremarkable. No fracture. Soft tissues: Unremarkable. Sinuses: No acute sinusitis. Mastoid air cells: Unremarkable as visualized. IMPRESSION: 1. No acute intracranial abnormality. Electronically signed by: Mandeep Betts MD 07/04/25 23:24 PM ECG Additional Comments: ECG. Normal sinus rhythm rate of 95. Possible anterior infarct age- indeterminate. QTc 462. Code Status & VTE Plan VTE Prophylaxis Plan VTE Prophylaxis will be ordered: Yes
[2025-07-05] MEDS: lamoTRIgine 25 MG TAB PO STA (00:42)
[2025-07-05] MEDS: PRAZOSIN HCL 1 MG CAP PO STA (00:45)
[2025-07-05] MEDS: TRIHEXYPHENIDYL HCL 2 MG TAB PO STA (00:49)
[2025-07-05] MEDS: ARIPiprazole 15 MG TAB PO STA (00:50)
[2025-07-05] MEDS: TOPIRAMATE 25 MG TAB PO STA (00:50)
[2025-07-05] MEDS: clonazePAM 0.5 MG TAB PO STA (00:50)
[2025-07-05] MEDS: GABAPENTIN 600 MG TAB PO STA (00:51)
[2025-07-05] MEDS: ACETAMINOPHEN 1,000 MG/100 ML VIAL IV STA (01:10)
[2025-07-05] MEDS: Patient's HEIGHT &/or WEIGHT Needed STA (02:17)
[2025-07-05] MEDS ORDERED: NITROGLYCERIN SL 0.4 MG/TAB TAB SL PRN (02:23)
[2025-07-05] MEDS ORDERED: POLYETHYLENE (MIRALAX) 17 GM PACK PO PRN (02:23)
[2025-07-05] MEDS ORDERED: ALBUTEROL HFA 8 GM INHALER INH PRN (02:27)
--- NOTE | 2025-07-05 03:38 | XRay Report ---
EXAM: XR chest 1V portable CLINICAL HISTORY: sob TECHNIQUE: Radiograph of chest was acquired. COMPARISON: none FINDINGS: Small atelectatic bands in left lower lung zone. The lungs are clear and well-expanded with no pulmonary infiltrate or pleural effusion. The cardiomediastinal silhouette is within normal limits. No acute osseous abnormality. IMPRESSION: 1. No acute cardiopulmonary disease. 2. Small atelectatic bands in left lower lung zone. Electronically signed by Bijan Peralta 07-05-2025 03:38 AM
[2025-07-05] MEDS: SODIUM CHLORIDE 0.9% 1,000 ML IV SCH (03:40)
[2025-07-05] MEDS: ENOXAPARIN INJ 40 MG/0.4 ML SYR SQ ONE (03:45)
[2025-07-05 03:48] LABS: Appearance Urine Clear (Clear); Bacteria Urine Automated None Seen (None Seen); Cast Urine Automated 0-2 /lpf (0-2); Glucose Urine UA Negative (Negative); RBC Urine Automated 0-2 /hpf (0-2); WBC Urine Automated 0-5 /hpf (0-5)
[2025-07-05 05:54] LABS: Hematocrit (blood only) 32.7 % (37.0-47.0); Hemoglobin 10.5 g/dl (12.0-16.0); Immature Granulocytes # (auto) 0.03 K/uL (0.01-0.20); Immature Granulocytes % (auto) 0.4 %; Mean Corpuscular Hemoglobin 28.0 pg (25.0-34.0); Mean Corpuscular Volume 87.2 fL (80.0-100.0); Platelet Count 247 K/uL (130-400); RDW Standard Deviation 48.0 fL (36.4-46.3); Red Blood Count 3.75 M/uL (4.20-5.40); White Blood Count 6.69 K/ul (4.8-10.8)
[2025-07-05 06:12] LABS: Anion Gap 8 (3-11); Blood Urea Nitrogen 14 mg/dl (6-23); Calcium 8.7 mg/dl (8.6-10.3); Carbon Dioxide 24 mmol/L (21-32); Chloride 109 mmol/L (98-107); Creatinine Clr Calc Pharmacy 71.5 ml/min; Glucose 90 mg/dl (70-99(Fasting)); Magnesium 1.9 mg/dl (1.7-2.4); Potassium 3.2 mmol/L (3.5-5.1); Sodium 141 mmol/L (136-145)
[2025-07-05 06:59] LABS: Partial Thromboplastin Time 28 Seconds (21-31)
[2025-07-05] MEDS ORDERED: TRIHEXYPHENIDYL HCL 2 MG TAB PO SCH (08:00)
[2025-07-05] MEDS: POTASSIUM CHLORIDE 20 MEQ/15 ML UDC PO ONE (08:51)
[2025-07-05] MEDS: OPTIRAY 320 125ml IV ONE ×2 (09:44→15:10)
--- NOTE | 2025-07-05 09:52 | Ultrasound Report ---
BILATERAL LOWER EXTREMITY VENOUS DOPPLER CLINICAL HISTORY: Bilateral lower ext edema. dvt? COMPARISON STUDY: No previous studies for comparison. TECHNIQUE: Sonography of the deep venous system of the bilateral lower extremities was performed. Co mpression and augmentation were evaluated. FINDINGS: The bilateral common femoral, superficial femoral and popliteal veins were compressible. A ugmentation was normal. Flow was shown within the deep calf vessels. IMPRESSION: No evidence of deep venous thrombus within the bilateral lower extremities. ACT 112: Negative or not required by law. Electronically signed by: Jimbo Rivera M.D. 07/05/2025 9:51 AM
[2025-07-05] MEDS: lamoTRIgine 25 MG TAB PO SCH (09:56)
[2025-07-05] MEDS: MONTELUKAST SODIUM 10 MG TABLET PO SCH (09:56)
[2025-07-05] MEDS: GABAPENTIN 600 MG TAB PO SCH (09:57)
[2025-07-05] MEDS: SPIRONOLACTONE 25 MG TAB PO SCH (09:58)
[2025-07-05] MEDS: DONEPEZIL HCL 10 MG TAB PO SCH (09:59)
[2025-07-05] MEDS: MEMANTINE HCL 10 MG TAB PO SCH (10:00)
[2025-07-05] MEDS: TOPIRAMATE 50 MG TAB PO SCH (10:00)
--- NOTE | 2025-07-05 10:00 | CT Scan Report ---
CT ANGIOGRAM OF THE CHEST CLINICAL HISTORY: Upper back pain. Evaluate for pulmonary embolus. COMPARISON STUDY: Chest radiograph performed earlier today. TECHNIQUE: Following the IV administration of 112 cc of Optiray 320, CT angiogram of the chest was pe rformed from the upper abdomen to the thoracic inlet utilizing the pulmonary embolus protocol. Images are reviewed in the axial, sagittal, and coronal planes. 3-D MIPS images are created and assessed. I V contrast was administered without complication. A dose lowering technique was utilized adhering to the principles of ALARA. CT DOSE: 853.61 mGy.cm FINDINGS: No pulmonary emboli are identified although the segmental and subsegmental pulmonary arteri es are suboptimally assessed due to respiratory motion. There is no thoracic aortic dissection. Centr al pulmonary arteries are mildly dilated. The heart is mildly enlarged. There is no thoracic lymphade nopathy. No pneumothorax is present. There is a trace left pleural effusion. Lungs are suboptimally a ssessed due to respiratory motion. Linear densities and groundglass opacities favor atelectasis. No c onsolidation to suggest pneumonia. Note is made of a severe T8 compression fracture with wedging. The re is 80% loss of vertebral body height anteriorly with minimal retropulsion along the inferior endpl ate. No extension into the posterior elements is noted. There is subtle sclerosis. The fracture line remains evident. There is a Schmorl's node along the inferior endplate of T12. IMPRESSION: 1. No pulmonary emboli identified although segmental and subsegmental pulmonary arteries suboptimally assessed due to respiratory motion. 2. No consolidation to suggest pneumonia. Linear densities and groundglass opacity suggestive of atel ectasis. 3. Mild cardiomegaly. 4. Severe T8 compression fracture with 80% loss of vertebral body height and minimal retropulsion lissett ng the inferior endplate. The appearance favors a subacute fracture. ACT 112: Negative or not required by law. Electronically signed by: Jimbo Rivera M.D. 07/05/2025 9:59 AM
[2025-07-05] MEDS: TORSEMIDE 10 MG TAB PO SCH (10:01)
[2025-07-05] MEDS: ASCORBIC ACID 500 MG TAB PO SCH (10:02)
[2025-07-05] MEDS: AZELASTINE HCL 0.1% NASAL 200 SPRAYS/27,400 MCG BTL SCH (10:02)
[2025-07-05] MEDS: FLUTICASONE/VILANTEROL 200/25MCG 14 PUFFS/INHALER INH SCH (10:03)
[2025-07-05] MEDS: FLUTICASONE PROPIONATE NA SPR 16 GM BTL SCH (10:04)
[2025-07-05] MEDS: POTASSIUM CHLORIDE 10 MEQ TABCR PO ONE (10:06)
[2025-07-05] MEDS: GABAPENTIN 400 MG CAP PO SCH (11:41)
--- NOTE | 2025-07-05 12:02 | Neurology Consultation ---
Date of Consultation July 05, 2025 Assessment & Plan (1) Tremor, unspecified: Agree with continued deutetrabenazine Agree with plan for psych consultation Agree with continued workup regarding CP/SOB and elevated D dimer Recommend continued stroke work up to include the following: Recommend CTA head & neck now MRI brain without contrast if able to tolerate Echocardiogram as part of complete stroke workup Continue frequent neurological assessments Obtain stat CT brain without contrast for any acute neurological decline Continue to monitor/control blood pressure & blood glucose Continue to monitor telemetry closely Recommend ZioPatch at DC if no evidence of arrhythmia during inpatient monitoring Continue to monitor renal and hepatic function, keep euvolemic Metabolic workup should include hgbA1c, fasting lipids If diagnosis stroke/TIA then recommend DAPT for at least 3 weeks If diagnosis stroke/TIA then recommend high dose statin therapy indefinitely if tolerated Ok from neurology perspective for VTE prophylaxis PT/OT/SLT to eval and treat Recommend CPAP at times of sleep (2) Paresthesia: Recommend continued stroke work up to include the following: Recommend CTA head & neck now MRI brain without contrast if able to tolerate Echocardiogram as part of complete stroke workup Continue frequent neurological assessments Obtain stat CT brain without contrast for any acute neurological decline Continue to monitor/control blood pressure & blood glucose Continue to monitor telemetry closely Recommend ZioPatch at DC if no evidence of arrhythmia during inpatient monitoring Continue to monitor renal and hepatic function, keep euvolemic Metabolic workup should include hgbA1c, fasting lipids If diagnosis stroke/TIA then recommend DAPT for at least 3 weeks If diagnosis stroke/TIA then recommend high dose statin therapy indefinitely if tolerated Ok from neurology perspective for VTE prophylaxis PT/OT/SLT to eval and treat Recommend CPAP at times of sleep Telehealth Consultation Telehealth Information Telehealth Information: I performed this visit using a real-time telehealth connection between my location and the patients originating location ([facility]). After connecting through interactive tele-video, patient was identified by name and date of and/or wristband check.Patient (or authorized healthcare field representative/health education) was informed that this was a telemedicine visit and it was being conducted confidentially over secure lines. My office door was closed and no one else was present in the room with me.Patient (or authorized healthcare field representative/health education) provided consent to proceed with the visit, expressed an understanding of privacy and security of the telemedicine visit, and gave permission to have a hospital field representative/health education in the room in order to assist with the visit and to conduct portions of the visit, as needed. I informed the patient (or authorized healthcare field representative/health education) that I reviewed their record and presented the opportunity for them to ask any questions regarding the visit today. The patient agreed to participate. History of Present Illness Reason for Consultation: Tremor Requesting Physician: Dr Richey Attending Physician: Danial Richey MD History of Present Illness 59yo female with significant past medical hx of JACKIE HFpEF, mitral regurgitation, significant psych hx and reported tardive kinesia presents with left facial and LUE paresthesia as well as right sided chest pain and SOB and reported difficulty swallowing. She has elevated D dimer. Reportedly paresthesia symptoms ongoing for days to weeks so not considered an IV thrombolytic candidate. She has undergone a CT brain without contrast revealing no overt evidence of hemorrhage or acute intracranial pathology. I have performed televideo consultation. She is alert & oriented; able to answer all questions appropriately, name objects on televideo monitor, repeat phrases and perform complex/embedded commands without deficit. Neurological exam is non lateralizing/nonfocal in terms of motor strength and coordination. Currently no reported cephalgia or cervicalgia. No reported current changes in vision or hearing. She denies syncope or seizure like activity. Reports continued left face and LUE paresthesia. Denies recent fevers chills nausea vomiting changes in bowels or bladder. Denies recent medication changes, recent illness or sick contacts, no reported recent travel. Allergies Allergy/AdvReac Type Severity Reaction Status Date / Time valbenazine [From Ingrezza] Allergy Severe SHORT OF Verified 07/04/25 22:41 BREATH/CHEST PAIN, TIGHTNESS amoxicillin [From Augmentin] AdvReac Intermediate NAUSEA/VOMI Verified 07/04/25 22:08 TING clavulanic acid AdvReac Intermediate Nausea Verified 07/04/25 22:08 [From Augmentin] propranolol [From Inderal LA] AdvReac Intermediate Vertigo Verified 07/04/25 22:08 SURGICAL ADELE Allergy Intermediate REACTION Uncoded 07/04/25 22:08 AFTER KNEE SURGERY TO ADELE USED Home Medications Medication Instructions Recorded Confirmed Type albuterol sulfate 90 mcg/actuation 1 puffs inhalation Q4H PRN 10/22/20 07/04/25 History breath activated powder inhaler sob/wheezing ascorbate calcium (vitamin C) 500 500 mg PO BID 10/22/20 07/04/25 History mg tablet fluticasone propionate 50 2 sprays intranasal QAM 10/22/20 07/04/25 History mcg/actuation nasal spray,suspension (Flonase Allergy Relief) gabapentin 400 mg capsule 400 mg PO QDL 10/22/20 07/04/25 History montelukast 10 mg tablet 10 mg PO QAM 10/22/20 07/04/25 History (Singulair) oxybutynin chloride 5 mg tablet 5 mg PO BID 10/22/20 07/04/25 History pantoprazole 40 mg tablet,delayed 40 mg PO QAM 10/22/20 07/04/25 History release prazosin 2 mg capsule 2 mg PO HS 10/22/20 07/04/25 History aripiprazole 15 mg tablet (Abilify) 10 mg PO HS 07/04/25 07/05/25 History azelastine 137 mcg (0.1 %) nasal 2 spray intranasal BID 07/04/25 07/04/25 History spray bupropion HCl 100 mg tablet,12 hr 200 mg PO QPM 07/04/25 07/04/25 History sustained-release bupropion HCl 150 mg tablet,12 hr 150 mg PO QAM 07/04/25 07/04/25 History sustained-release deutetrabenazine 36 mg 36 mg PO DAILY 07/04/25 07/04/25 History tablet,extended release 24 hr docusate sodium 100 mg capsule 100 mg PO QPM 07/04/25 07/04/25 History donepezil 10 mg tablet 10 mg PO DAILY 07/04/25 07/04/25 History fluoxetine 40 mg capsule 80 mg PO QAM 07/04/25 07/04/25 History fluticasone furoate 200 1 inh inhalation DAILY 07/04/25 07/04/25 History mcg-vilanterol 25 mcg/dose inhalation powder (Breo Ellipta) gabapentin 600 mg tablet 600 mg PO AMHS 07/04/25 07/04/25 History hydroxyzine HCl 25 mg tablet 25 mg PO BID 07/04/25 07/04/25 History lamotrigine 25 mg tablet (Lamictal) 75 mg PO AMHS 07/04/25 07/04/25 History levocetirizine 5 mg tablet (Xyzal) 5 mg PO PM 07/04/25 07/04/25 History meloxicam 7.5 mg tablet 7.5 mg PO BID 07/04/25 07/04/25 History memantine 10 mg tablet 10 mg PO DAILY 07/04/25 07/04/25 History ondansetron HCl 4 mg tablet 4 mg PO Q8H PRN NAUSEA/VOMITING 07/04/25 07/04/25 History prazosin 1 mg capsule 1 mg PO HS 07/04/25 07/04/25 History ropinirole 0.25 mg tablet 0.25 mg PO TID 07/04/25 07/04/25 History spironolactone 25 mg tablet 25 mg PO QAM 07/04/25 07/04/25 History topiramate 50 mg tablet 50 mg PO QAM 07/04/25 07/04/25 History topiramate 50 mg tablet 75 mg PO HS 07/04/25 07/04/25 History torsemide 10 mg tablet 10 mg PO QAM 07/04/25 07/04/25 History trazodone 50 mg tablet 50 mg PO HS PRN Sleep 07/04/25 07/04/25 History Patient History Medical History Anxiety Asthma "controlled" Bipolar disorder Chronic back pain Claustrophobia Degenerative disc disease Depression GERD (gastroesophageal reflux disease) Controlled Memory loss mild short term Migraine Osteoarthritis Post traumatic stress disorder Surgical History H/O exploratory laparotomy removal of ectopic History of carpal tunnel surgery Left ulnar nerve surgery History of cholecystectomy History of endoscopic sinus surgery History of total knee replacement Right TKA (11/08/20): SAB x1 attempt + PNB at [facility] S/P BSO (bilateral salpingo-oophorectomy) S/P epidural steroid injection Family History Father Prostate cancer Brother Family history of diabetes mellitus Sister Family history of diabetes mellitus Social History Smoking Status: Never smoker Second Hand Exposure: Yes (FATHER SMOKED/FATHER IN LAW SMOKED); Do You Dip or Chew Tobacco: No; Hx Alcohol Use: No Hx Substance Use: Yes Preferred Language: Taiwanese Communication Ability: Effective Development Spec Required: No Beliefs That Will Affect Care: None marital status: Unknown Current Living Situation: Family Current Living Situation Comment: lives with sister current occupational status: disabled Feels Safe at Home: Yes Assistive Devices: Walker Physical Exam Neurological Examination: Mental Status: Awake and alert. Oriented to person, place, and time. Fluency naming repetition and comprehension appear grossly intact. Affect remains appropriate. CN testing: I: Deferred II: Reports no changes in visual acuity III/IV/: No evidence of gaze preference, hippus, nystagmus or roving eye movements V: Facial sensation reportedly grossly intact to light touch bilaterally VII: Facial movements appear without evidence of asymmetry VIII: Hearing appears grossly intact to loud voice bilaterally IX/X: Palate is unable to be accurately visualized XI: Shoulder shrug appears symmetric/ grossly intact bilaterally XII: Tongue protrudes midline without evidence of biting Motor exam: Strength appears grossly intact in all extremities Tone: Unable to accurately assess via telemedicine Sensory: Sensation -reports numbness & tingling left face and LUE Coordination: Ongoing tremor- resting and intention in BUE > BLE Reflexes: Unable to accurately assess via telemedicine Gait: Deferred Results & Data Vital Signs (Past 12 Hours) Vital Signs Pulse Pulse Resp BP BP Pulse Ox O2 Del Method 07/05/25 06:41 66 19 113/70 94 CPAP 07/05/25 06:00 113/70 94 CPAP 07/05/25 05:00 107/68 93 CPAP 07/05/25 04:00 93 CPAP 07/05/25 03:00 104/66 93 CPAP 07/05/25 02:25 87 19 90 07/05/25 02:23 16 95 Room Air 07/05/25 02:00 96/60 L 91 Room Air 07/05/25 02:00 86 19 96/60 L 90 Room Air 07/05/25 01:27 88 18 113/69 91 Room Air 07/05/25 00:30 88 19 135/78 92 Room Air FiO2 07/05/25 06:41 07/05/25 06:00 07/05/25 05:00 07/05/25 04:00 07/05/25 03:00 07/05/25 02:25 21 07/05/25 02:23 07/05/25 02:00 07/05/25 02:00 07/05/25 01:27 07/05/25 00:30 Laboratory Results Abnormal lab results 07/04/25 07/05/25 07/05/25 Range/Units 21:15 01:20 05:06 RBC 4.07 L 3.75 L (4.20-5.40) M/uL Hgb 10.5 L (12.0-16.0) g/dl Hct 35.5 L 32.7 L (37.0-47.0) % RDW Std Deviation 47.6 H 48.0 H (36.4-46.3) fL RDW Coeff of Bridgett 14.8 H 15.0 H (11.5-14.5) % MPV 9.1 L 9.1 L (9.4-12.4) fL [place] # (Auto) 0.88 H (0.11-0.59) K/uL D-Dimer 1590 H* (0-500) ug/L FEU Potassium 3.2 L (3.5-5.1) mmol/L Chloride 109 H 109 H (98-107) mmol/L Glucose 107 H (70-99(Fasting)) mg/dl Ur Leukocyte Esterase 1+ H (Negative) U Epithel Cells (Auto) 3-5 H (0-2) /hpf Calcium Oxalate Crystal Present A (None Prsent) Diagnostic Findings Head CT 07/04/25 21:04 Exam(s): CT HEAD Without Contrast EXAM: CT Head Without Intravenous Contrast CLINICAL HISTORY: Reason for exam: severe TD, R facial numbness. TECHNIQUE: Axial computed tomography images of the head/brain without intravenous contrast. CTDI is 62.75 mGy and DLP is 1237.72 mGy-cm. Automated exposure control was utilized for the study. A dose lowering technique was utilized adhering to the principles of ALARA. COMPARISON: No relevant prior studies available. FINDINGS: Artifacts: Images are slightly degraded by motion artifact. Brain: No hemorrhage, extra-axial fluid collection, mass effect, or edema. Ventricles: Unremarkable. Bones/joints: Unremarkable. No fracture. Soft tissues: Unremarkable. Sinuses: No acute sinusitis. Mastoid air cells: Unremarkable as visualized. IMPRESSION: 1. No acute intracranial abnormality. Electronically signed by: Mandeep Betts MD 07/04/25 23:24 PM Chest X-Ray 07/05/25 02:23 EXAM: XR chest 1V portable CLINICAL HISTORY: sob TECHNIQUE: Radiograph of chest was acquired. COMPARISON: none FINDINGS: Small atelectatic bands in left lower lung zone. The lungs are clear and well-expanded with no pulmonary infiltrate or pleural effusion. The cardiomediastinal silhouette is within normal limits. No acute osseous abnormality. IMPRESSION: 1. No acute cardiopulmonary disease. 2. Small atelectatic bands in left lower lung zone. Electronically signed by Bijan Peralta 07-05-2025 03:38 AM Venous Doppler Study 07/05/25 02:23 BILATERAL LOWER EXTREMITY VENOUS DOPPLER CLINICAL HISTORY: Bilateral lower ext edema. dvt? COMPARISON STUDY: No previous studies for comparison. TECHNIQUE: Sonography of the deep venous system of the bilateral lower extremities was performed. Compression and augmentation were evaluated. FINDINGS: The bilateral common femoral, superficial femoral and popliteal veins were compressible. Augmentation was normal. Flow was shown within the deep calf vessels. IMPRESSION: No evidence of deep venous thrombus within the bilateral lower extremities. ACT 112: Negative or not required by law. Electronically signed by: Jimbo Rivera M.D. 07/05/2025 9:51 AM Chest CTA 07/05/25 04:17 CT ANGIOGRAM OF THE CHEST CLINICAL HISTORY: Upper back pain. Evaluate for pulmonary embolus. COMPARISON STUDY: Chest radiograph performed earlier today. TECHNIQUE: Following the IV administration of 112 cc of Optiray 320, CT angiogram of the chest was performed from the upper abdomen to the thoracic inlet utilizing the pulmonary embolus protocol. Images are reviewed in the axial, sagittal, and coronal planes. 3-D MIPS images are created and assessed. IV contrast was administered without complication. A dose lowering technique was utilized adhering to the principles of ALARA. CT DOSE: 853.61 mGy.cm FINDINGS: No pulmonary emboli are identified although the segmental and subsegmental pulmonary arteries are suboptimally assessed due to respiratory motion. There is no thoracic aortic dissection. Central pulmonary arteries are mildly dilated. The heart is mildly enlarged. There is no thoracic lymphadenopathy. No pneumothorax is present. There is a trace left pleural effusion. Lungs are suboptimally assessed due to respiratory motion. Linear densities and groundglass opacities favor atelectasis. No consolidation to suggest pneumonia. Note is made of a severe T8 compression fracture with wedging. There is 80% loss of vertebral body height anteriorly with minimal retropulsion along the inferior endplate. No extension into the posterior elements is noted. There is subtle sclerosis. The fracture line remains evident. There is a Schmorl's node along the inferior endplate of T12. IMPRESSION: 1. No pulmonary emboli identified although segmental and subsegmental pulmonary arteries suboptimally assessed due to respiratory motion. 2. No consolidation to suggest pneumonia. Linear densities and groundglass opacity suggestive of atelectasis. 3. Mild cardiomegaly. 4. Severe T8 compression fracture with 80% loss of vertebral body height and minimal retropulsion along the inferior endplate. The appearance favors a subacute fracture. ACT 112: Negative or not required by law. Electronically signed by: Jimbo Rivera M.D. 07/05/2025 9:59 AM Medications Administered Home Medications Medication Instructions Recorded Confirmed Last Taken albuterol sulfate 90 mcg/actuation 1 puffs inhalation Q4H PRN 10/22/20 07/04/25 03/10/21 15:00 breath activated powder inhaler sob/wheezing ascorbate calcium (vitamin C) 500 500 mg PO BID 10/22/20 07/04/25 07/04/25 08:00 mg tablet fluticasone propionate 50 2 sprays intranasal QAM 10/22/20 07/04/25 07/04/25 mcg/actuation nasal spray,suspension (Flonase Allergy Relief) gabapentin 400 mg capsule 400 mg PO QDL 10/22/20 07/04/25 07/04/25 montelukast 10 mg tablet 10 mg PO QAM 10/22/20 07/04/25 07/04/25 (Singulair) oxybutynin chloride 5 mg tablet 5 mg PO BID 10/22/20 07/04/25 07/04/25 08:00 pantoprazole 40 mg tablet,delayed 40 mg PO QAM 10/22/20 07/04/25 07/04/25 release prazosin 2 mg capsule 2 mg PO HS 10/22/20 07/04/25 07/03/25 aripiprazole 15 mg tablet (Abilify) 10 mg PO HS 07/04/25 07/05/25 07/03/25 azelastine 137 mcg (0.1 %) nasal 2 spray intranasal BID 07/04/25 07/04/25 07/04/25 08:00 spray bupropion HCl 100 mg tablet,12 hr 200 mg PO QPM 07/04/25 07/04/25 07/04/25 sustained-release bupropion HCl 150 mg tablet,12 hr 150 mg PO QAM 07/04/25 07/04/25 07/04/25 sustained-release deutetrabenazine 36 mg 36 mg PO DAILY 07/04/25 07/04/25 Unknown tablet,extended release 24 hr docusate sodium 100 mg capsule 100 mg PO QPM 07/04/25 07/04/25 07/04/25 donepezil 10 mg tablet 10 mg PO DAILY 07/04/25 07/04/25 Unknown fluoxetine 40 mg capsule 80 mg PO QAM 07/04/25 07/04/25 07/04/25 fluticasone furoate 200 1 inh inhalation DAILY 07/04/25 07/04/25 07/04/25 mcg-vilanterol 25 mcg/dose inhalation powder (Breo Ellipta) gabapentin 600 mg tablet 600 mg PO AMHS 07/04/25 07/04/25 07/04/25 08:00 hydroxyzine HCl 25 mg tablet 25 mg PO BID 07/04/25 07/04/25 07/04/25 lamotrigine 25 mg tablet (Lamictal) 75 mg PO AMHS 07/04/25 07/04/25 07/04/25 08:00 levocetirizine 5 mg tablet (Xyzal) 5 mg PO PM 07/04/25 07/04/25 07/04/25 meloxicam 7.5 mg tablet 7.5 mg PO BID 07/04/25 07/04/25 07/04/25 08:00 memantine 10 mg tablet 10 mg PO DAILY 07/04/25 07/04/25 Unknown ondansetron HCl 4 mg tablet 4 mg PO Q8H PRN NAUSEA/VOMITING 07/04/25 07/04/25 Unknown prazosin 1 mg capsule 1 mg PO HS 07/04/25 07/04/25 07/03/25 ropinirole 0.25 mg tablet 0.25 mg PO TID 07/04/25 07/04/25 07/04/25 12:00 spironolactone 25 mg tablet 25 mg PO QAM 07/04/25 07/04/25 07/04/25 topiramate 50 mg tablet 50 mg PO QAM 07/04/25 07/04/25 07/04/25 topiramate 50 mg tablet 75 mg PO HS 07/04/25 07/04/25 07/03/25 torsemide 10 mg tablet 10 mg PO QAM 07/04/25 07/04/25 07/04/25 trazodone 50 mg tablet 50 mg PO HS PRN Sleep 07/04/25 07/04/25 Unknown Active Medications Generic Name Dose Route Start Last Admin Trade Name Freq PRN Reason Stop Dose Admin Aripiprazole 10 mg 07/05/25 02:45 07/05/25 03:40 Aripiprazole 10 Mg Tab PO 08/04/25 02:44 10 mg HS SYED Administration Ascorbic Acid 500 mg 07/05/25 09:00 07/05/25 10:02 Ascorbic Acid 500 Mg Tab PO 08/04/25 08:59 500 mg BID SYED Administration Azelastine HCl 2 sprays 07/05/25 09:00 07/05/25 10:02 Azelastine Hcl 0.1% Nasal 200 Sprays/27,400 Mcg Btl NA 08/04/25 08:59 2 sprays BID SYED Administration Bupropion HCl 150 mg 07/05/25 09:00 07/05/25 10:01 Bupropion Sr 150 Mg Tabcr PO 08/04/25 08:59 150 mg QAM SYED Administration Donepezil HCl 10 mg 07/05/25 09:00 07/05/25 09:59 Donepezil Hcl 10 Mg Tab PO 08/04/25 08:59 10 mg DAILY SYED Administration Fluoxetine HCl 80 mg 07/05/25 09:00 07/05/25 09:54 Fluoxetine Hcl 20 Mg Cap PO 08/04/25 08:59 80 mg QAM SYED Administration Fluticasone Propionate 2 sprays 07/05/25 09:00 07/05/25 10:04 Fluticasone Propionate Na Spr 16 Gm Btl NA 08/04/25 08:59 2 sprays QAM SYED Administration Fluticasone/Vilanterol 1 puffs 07/05/25 09:00 07/05/25 10:03 Fluticasone/Vilanterol 200/25mcg 14 Puffs/Inhaler INH 08/04/25 08:59 1 puffs DAILY SYED Administration Gabapentin 600 mg 07/05/25 09:00 07/05/25 09:57 Gabapentin 600 Mg Tab PO 08/04/25 08:59 600 mg AMHS SYED Administration Gabapentin 400 mg 07/05/25 11:30 07/05/25 11:41 Gabapentin 400 Mg Cap PO 08/04/25 11:29 400 mg QDL SYED Administration Hydroxyzine HCl 25 mg 07/05/25 09:00 07/05/25 09:59 Hydroxyzine Hcl 25 Mg Tab PO 08/04/25 08:59 25 mg BID SYED Administration Sodium Chloride 1,000 mls @ 80 mls/hr 07/05/25 02:23 07/05/25 03:40 Nss IV 07/05/25 14:52 80 mls/hr .[id number] SYED Administration Lamotrigine 75 mg 07/05/25 09:00 07/05/25 09:56 Lamotrigine 25 Mg Tab PO 08/04/25 08:59 75 mg AMHS SYED Administration Protocol Memantine 10 mg 07/05/25 09:00 07/05/25 10:00 Memantine Hcl 10 Mg Tab PO 08/04/25 08:59 10 mg DAILY SYED Administration Miscellaneous 1 each 07/05/25 08:00 07/05/25 11:23 Austedo 36mg--Order Awaiting Action N/A 08/04/25 07:59 Not Given QS SYED Montelukast Sodium 10 mg 07/05/25 09:00 07/05/25 09:56 Montelukast Sodium 10 Mg Tablet PO 08/04/25 08:59 10 mg QAM SYED Administration Oxybutynin Chloride 5 mg 07/05/25 09:00 07/05/25 09:59 Oxybutynin Chloride 5 Mg Tab PO 08/04/25 08:59 5 mg BID SYED Administration Pantoprazole Sodium 40 mg 07/05/25 09:00 07/05/25 10:00 Pantoprazole 40 Mg Tab PO 08/04/25 08:59 40 mg QAM SYED Administration Ropinirole HCl 0.25 mg 07/05/25 09:00 07/05/25 09:58 Ropinirole Hcl 0.25 Mg Tablet PO 08/04/25 08:59 0.25 mg TID SYED Administration Spironolactone 25 mg 07/05/25 09:00 07/05/25 09:58 Spironolactone 25 Mg Tab PO 08/04/25 08:59 25 mg QAM SYED Administration Topiramate 50 mg 07/05/25 09:00 07/05/25 10:00 Topiramate 50 Mg Tab PO 08/04/25 08:59 50 mg QAM SYED Administration Torsemide 10 mg 07/05/25 09:00 07/05/25 10:01 Torsemide 10 Mg Tab PO 08/04/25 08:59 10 mg QAM SYED Administration
--- NOTE | 2025-07-05 12:20 | Hospitalist Progress Note ---
Date of Service July 05, 2025 Assessment & Plan (1) Tremor, unspecified: Plan: 59-year-old female with past medical history significant for mild persistent asthma, obstructive sleep apnea, history of sinusitis, chronic heart failure with preserved ejection fraction, moderate mitral regurgitation, obesity, GERD, chronic constipation, history of right ovarian mass, degenerative disc disease, sciatica, tardive dyskinesia, chronic pain syndrome, chronic neck pain, anemia, bipolar 2 disorder, schizoaffective disorder bipolar type, schizoaffective disorder depression type, major depression, generalized anxiety disorder, mild cognitive impairment, generalized weakness, presents with ongoing tremors. Patient states she is having tremors for several weeks but last week they got worse. Since last 1 week she is also had some tingliness on the left side of the face. Also some left ear pain. She says she is also having slurred speech for the last couple of weeks. Having headaches. Having back pain. Having right-sided chest pain on and off for 1 to 2 weeks. Has dry cough. Complains of shortness of breath. Lately having some difficulty swallowing. Scratchy throat. No runny nose. Afebrile. Patient states her vision she cannot focus. No nausea or abdominal pain. States last couple of days not micturated much.Normal bowel movements. Ambulates with walker. Lately having difficulty ambulating. Lives with her sister. She was in the [place] ER yesterday for similar complaints. Currently having a lot of tremors in the upper extremities and face. Hemodynamics okay. Tremors uncontrolled Likely tardive dyskinesia/antipsychotics Strokelike symptoms--presented with paresthesias left facial, left upper extremity/slurred speech --CT head:No acute intracranial abnormality. -- CTA head and neck pending -- Echo pending -- Check lipid panel, A1c Appreciate neurology input Difficult to obtain MRI due to significant tremor PT OT, speech eval Deutetrabenazine on hold due to non-formulary and patient unable to obtain it from home Psychiatry consulted for further help Schizoaffective disorder Bipolar disorder General Anxiety disorder Depression Polypharmacy On multiple antipsychotics/mood stabilizers Psychiatry consulted to help with medication adjustment as needed Elevated D-dimer --CTA:No pulmonary emboli --Venous Doppler:No evidence of deep venous thrombus within the bilateral lower extremities. Compression fracture of T8 vertebrae --CT showed Severe T8 compression fracture with 80% loss of vertebral body height and minimal retropulsion along the inferior endplate. The appearance favors a subacute fracture. TLSO brace with activity PT OT, fall precautions Appreciate orthopedics input Hypokalemia Replace and monitor Dysphagia Denies odynophagia Aspiration precautions Speech therapy consulted Will likely need video swallow study as able Chest pain Right-sided and intermittent Likely referred pain from T8 fracture Troponin x 2 negative Monitor Chronic heart failure with preserved function Moderate mitral regurgitation Currently no signs of significant volume overload Continue home diuretics Monitor volume status History of mild present asthma No signs of acute exacerbation Continue home inhalers Obstructive sleep apnea CPAP nightly Chronic pain Hold meloxicam Continue gabapentin Tylenol as needed Mild cognitive impairment On memantine and donepezil 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 in 2019 DVT prophylaxis Lovenox SQ CODE STATUS Full code Disposition PT OT prior to discharge Admission and Anticipated Discharge Date Admission Date: July 04, 2025 Subjective Patient is seen and examined at bedside Has multiple complaints today Reports having ongoing tremor, dysphagia, dry cough, left facial/left upper extremity tingling sensation Also reports bilateral leg weakness Denies any chest pain, dyspnea, abdominal pain Review of Systems Review of Systems: All systems reviewed & are unremarkable except as noted in Subjective Physical Exam Physical Exam: Physical Exam: Vitals signs as noted above General Appearance:Overweight, no apparent distress Head: normocephalic, Atraumatic Eyes: normal inspection, EOMI Neck: supple, Trachea midline Respiratory/Chest: Normal breath sounds, CTA, No accessory muscle use Cardiovascular: S1, S2, No murmur Abdomen/GI:Soft, Non tender, Bowel sounds present Extremities/Musculoskeletal:normal inspection, Trace edema Neurologic/Psych:AAOX3, grossly no focal neurological deficits,+ Tremor predominantly in upper extremities Skin: normal color, warm Results & Data Results & Data Vital Signs (Past 12 Hours) Vital Signs Pulse Pulse Resp BP BP Pulse Ox O2 Del Method 07/05/25 06:41 66 19 113/70 94 CPAP 07/05/25 06:00 113/70 94 CPAP 07/05/25 05:00 107/68 93 CPAP 07/05/25 04:00 93 CPAP 07/05/25 03:00 104/66 93 CPAP 07/05/25 02:25 87 19 90 07/05/25 02:23 16 95 Room Air 07/05/25 02:00 96/60 L 91 Room Air 07/05/25 02:00 86 19 96/60 L 90 Room Air 07/05/25 01:27 88 18 113/69 91 Room Air 07/05/25 00:30 88 19 135/78 92 Room Air FiO2 07/05/25 06:41 07/05/25 06:00 07/05/25 05:00 07/05/25 04:00 07/05/25 03:00 07/05/25 02:25 21 07/05/25 02:23 07/05/25 02:00 07/05/25 02:00 07/05/25 01:27 07/05/25 00:30 Laboratory Results Short CBC 07/04/25 07/05/25 Range/Units 21:15 05:06 WBC 8.86 6.69 (4.8-10.8) K/ul Hgb 12.0 10.5 L (12.0-16.0) g/dl Hct 35.5 L 32.7 L (37.0-47.0) % Plt Count 290 247 (130-400) K/uL [facility] 07/04/25 07/05/25 21:15 05:06 Sodium 141 141 Potassium 3.5 3.2 L Chloride 109 H 109 H Carbon Dioxide 24 24 BUN 15 14 Creatinine 1.01 0.90 Glucose 107 H 90 Calcium 9.6 8.7 Liver Function 07/04/25 Range/Units 21:15 Total Bilirubin 0.3 (0.2-1.0) mg/dl AST 24 (13-39) U/L ALT 16 (7-52) U/L Alkaline Phosphatase 69 (34-104) U/L Albumin 4.1 (3.4-5.0) gm/dl Urine 07/05/25 Range/Units 01:20 Urine Color Yellow Urine Appearance Clear (Clear) Urine pH 6.0 (4.5-7.5) Ur Specific [place] 1.025 (1.000-1.030) Urine Protein Negative (Negative) Urine Glucose (UA) Negative (Negative)
--- NOTE | 2025-07-05 13:22 | Orthopedic Consultation ---
Date of Service July 05, 2025 Assessment & Plan (1) Compression fracture of T8 vertebra: * Case/imaging reviewed and discussed with Dr Elam * Recommend close management of T8 compression fracture * TLSO brace ordered, to be worn when out of bed * MRI thoracic spine ordered for ligament evaluation * Weight bearing status: WBAT through spine/lower extremities. Limit bending, lifting, twisting motions through the spine. * Daily treatment: Physical Therapy/ Occupational Therapy per protocol * Pain control * Disposition: TBD * Remainder care per primary team * Will follow peripherally, office follow-up for repeat imaging in the coming weeks. History of Present Illness Reason for Consultation: T8 compression fx Requesting Physician: . Attending Physician: Danial Richey MD .Patient is a 59 y/o female with T8 compression fx. PMH including mild persistent asthma, obstructive sleep apnea, history of sinusitis, chronic heart failure with preserved ejection fraction, moderate mitral regurgitation, obesity, GERD, chronic constipation, history of right ovarian mass, degenerative disc disease, sciatica, tardive dyskinesia, chronic pain syndrome, chronic neck pain, anemia, bipolar 2 disorder, schizoaffective disorder bipolar type, schizoaffective disorder depression type, major depression, generalized anxiety disorder, mild cognitive impairment, generalized weakness. Presents to hospital with ongoing/worsening tremors. Ongoing neurological work-up. Also noted mid- back/chest pain. Current workup including CT chest demonstrates subacute T8 compression fracture. Admitted to hospital team for ongoing neurological workup. Orthopedics consulted for management recommendations regarding T8 fracture. At time of exam patient sitting comfortably in bed, no acute distress. Significant full body tremor. Reports ongoing pain in the mid back for approximately 3 weeks. Denies known injury, fall, trauma, or twisting/lifting motion that initiated symptoms. Reports bilateral lower neuropathy, no changes from baseline. Otherwise denies tingling/numbness throughout the upper and lower extremities. Allergies Allergy/AdvReac Type Severity Reaction Status Date / Time valbenazine [From Ingrezza] Allergy Severe SHORT OF Verified 07/04/25 22:41 BREATH/CHEST PAIN, TIGHTNESS amoxicillin [From Augmentin] AdvReac Intermediate NAUSEA/VOMI Verified 07/04/25 22:08 TING clavulanic acid AdvReac Intermediate Nausea Verified 07/04/25 22:08 [From Augmentin] propranolol [From Inderal LA] AdvReac Intermediate Vertigo Verified 07/04/25 22:08 SURGICAL ADELE Allergy Intermediate REACTION Uncoded 07/04/25 22:08 AFTER KNEE SURGERY TO ADELE USED Home Medications Medication Instructions Recorded Confirmed Type albuterol sulfate 90 mcg/actuation 1 puffs inhalation Q4H PRN 10/22/20 07/04/25 History breath activated powder inhaler sob/wheezing ascorbate calcium (vitamin C) 500 500 mg PO BID 10/22/20 07/04/25 History mg tablet fluticasone propionate 50 2 sprays intranasal QAM 10/22/20 07/04/25 History mcg/actuation nasal spray,suspension (Flonase Allergy Relief) gabapentin 400 mg capsule 400 mg PO QDL 10/22/20 07/04/25 History montelukast 10 mg tablet 10 mg PO QAM 10/22/20 07/04/25 History (Singulair) oxybutynin chloride 5 mg tablet 5 mg PO BID 10/22/20 07/04/25 History pantoprazole 40 mg tablet,delayed 40 mg PO QAM 10/22/20 07/04/25 History release prazosin 2 mg capsule 2 mg PO HS 10/22/20 07/04/25 History aripiprazole 15 mg tablet (Abilify) 10 mg PO HS 07/04/25 07/05/25 History azelastine 137 mcg (0.1 %) nasal 2 spray intranasal BID 07/04/25 07/04/25 History spray bupropion HCl 100 mg tablet,12 hr 200 mg PO QPM 07/04/25 07/04/25 History sustained-release bupropion HCl 150 mg tablet,12 hr 150 mg PO QAM 07/04/25 07/04/25 History sustained-release deutetrabenazine 36 mg 36 mg PO DAILY 07/04/25 07/04/25 History tablet,extended release 24 hr docusate sodium 100 mg capsule 100 mg PO QPM 07/04/25 07/04/25 History donepezil 10 mg tablet 10 mg PO DAILY 07/04/25 07/04/25 History fluoxetine 40 mg capsule 80 mg PO QAM 07/04/25 07/04/25 History fluticasone furoate 200 1 inh inhalation DAILY 07/04/25 07/04/25 History mcg-vilanterol 25 mcg/dose inhalation powder (Breo Ellipta) gabapentin 600 mg tablet 600 mg PO AMHS 07/04/25 07/04/25 History hydroxyzine HCl 25 mg tablet 25 mg PO BID 07/04/25 07/04/25 History lamotrigine 25 mg tablet (Lamictal) 75 mg PO AMHS 07/04/25 07/04/25 History levocetirizine 5 mg tablet (Xyzal) 5 mg PO PM 07/04/25 07/04/25 History meloxicam 7.5 mg tablet 7.5 mg PO BID 07/04/25 07/04/25 History memantine 10 mg tablet 10 mg PO DAILY 07/04/25 07/04/25 History ondansetron HCl 4 mg tablet 4 mg PO Q8H PRN NAUSEA/VOMITING 07/04/25 07/04/25 History prazosin 1 mg capsule 1 mg PO HS 07/04/25 07/04/25 History ropinirole 0.25 mg tablet 0.25 mg PO TID 07/04/25 07/04/25 History spironolactone 25 mg tablet 25 mg PO QAM 07/04/25 07/04/25 History topiramate 50 mg tablet 50 mg PO QAM 07/04/25 07/04/25 History topiramate 50 mg tablet 75 mg PO HS 07/04/25 07/04/25 History torsemide 10 mg tablet 10 mg PO QAM 07/04/25 07/04/25 History trazodone 50 mg tablet 50 mg PO HS PRN Sleep 07/04/25 07/04/25 History Past Med/Surg History Problem List (Updated 07/05/25 @ 13:21 by Vamshi Armas PA-C) Compression fracture of T8 vertebra Paresthesia Dyskinesia, tardive (Acute) Tremor, unspecified (Acute) Primary osteoarthritis of left knee Encounter for pre-operative examination Primary osteoarthritis of right knee DVT prophylaxis History of total right knee replacement Post traumatic stress disorder Bipolar disorder Asthma "controlled" Medical History Anxiety Asthma "controlled" Bipolar disorder Chronic back pain Claustrophobia Degenerative disc disease Depression GERD (gastroesophageal reflux disease) Controlled Memory loss mild short term Migraine Osteoarthritis Post traumatic stress disorder Surgical History H/O exploratory laparotomy removal of ectopic History of carpal tunnel surgery Left ulnar nerve surgery History of cholecystectomy History of endoscopic sinus surgery History of total knee replacement Right TKA (11/08/20): SAB x1 attempt + PNB at [facility] S/P BSO (bilateral salpingo-oophorectomy) S/P epidural steroid injection Family History Father Prostate cancer Brother Family history of diabetes mellitus Sister Family history of diabetes mellitus Social History Smoking Status: Never smoker Second Hand Exposure: Yes (FATHER SMOKED/FATHER IN LAW SMOKED); Do You Dip or Chew Tobacco: No; Hx Alcohol Use: No Hx Substance Use: Yes Preferred Language: Malawian Communication Ability: Effective Supervisor Electronic Testing Required: No Beliefs That Will Affect Care: None marital status: Unknown Current Living Situation: Family Current Living Situation Comment: lives with sister current occupational status: disabled Feels Safe at Home: Yes Assistive Devices: Walker Review of Systems All systems reviewed & are unremarkable except as noted in HPI & below. Physical Exam . * General: Alert and oriented, no acute distress. Tremor * Constitutional: well-developed, well-nourished. * Respiratory: Normal respiratory effort, no distress * Gastrointestinal: No tenderness to palpation, no rigidity or guarding. * Skin: No rash or lesion. * Neurologic: Grossly normal * Musculoskeletal: Thoracic region without obvious deformity or overlying skin changes. Otherwise no obvious deformity or skin changes noted to bilateral upper or lower extremities. Midline TTP at level of T8, mild TTP of the local paraspinals. Otherwise no tenderness of the midline cervical or lumbar spine. AROM spine flexion/extension with mild pain throughout the mid back. AROM hip flexion, knee extension, ankle plantar/dorsiflexion, EHL extension intact, strength 5/5 bilaterally. Sensation intact plantar/dorsal foot, medial/lateral lower leg. Results & Data Results & Data Laboratory Results . 07/05/25 07/05/25 07/04/25 05:06 01:20 21:15 WBC 6.69 8.86 RBC 3.75 L 4.07 L Hgb 10.5 L 12.0 Hct 32.7 L 35.5 L MCV 87.2 87.2 MCH 28.0 29.5 MCHC 32.1 33.8 RDW Std Deviation 48.0 H 47.6 H RDW Coeff of Bridgett 15.0 H 14.8 H Plt Count 247 290 MPV 9.1 L 9.1 L Immature Gran % (Auto) 0.4 0.3 Neut % (Auto) 54.2 60.6 Lymph % (Auto) 32.9 26.2 Barron % (Auto) 8.8 9.9 Eos % (Auto) 3.0 2.3 Baso % (Auto) 0.7 0.7 Neut # (Auto) 3.62 5.37 Lymph # (Auto) 2.20 2.32 Barron # (Auto) 0.59 0.88 H Eos # (Auto) 0.20 0.20 Baso # (Auto) 0.05 0.06 Immature Gran # (Auto) 0.03 0.03 APTT 28 PTT Ratio 1.0 D-Dimer 1590 H* Sodium 141 141 Potassium 3.2 L 3.5 Chloride 109 H 109 H Carbon Dioxide 24 24 Anion Gap 8 8 BUN 14 15 Creatinine 0.90 1.01 Est Cr Clr Drug Dosing 71.5 Not Reportable eGFR 74.57 64.93 BUN/Creatinine Ratio 15.6 14.9 Glucose 90 107 H Calcium 8.7 9.6 Magnesium 1.9 1.8 Total Bilirubin 0.3 AST 24 ALT 16 Alkaline Phosphatase 69 Troponin I High Sens < 2.3 3.0 Total Protein 7.0 Albumin 4.1 Globulin 2.9 Albumin/Globulin Ratio 1.4 Procalcitonin 0.04 Urine Color Yellow Urine Appearance Clear Urine pH 6.0 Ur Specific [place] 1.025 Urine Protein Negative Urine Glucose (UA) Negative Urine Ketones Negative Urine Blood Negative Urine Nitrite Negative Urine Bilirubin Negative Urine Urobilinogen Negative Ur Leukocyte Esterase 1+ H Urine WBC (Auto) 0-5 Urine RBC (Auto) 0-2 U Hyaline Cast (Auto) 0-2 U Epithel Cells (Auto) 3-5 H Urine Bacteria (Auto) None Seen Calcium Oxalate Crystal Present A Urine Comment Diagnostic Findings . Chest X-Ray 07/05/25 02:23 EXAM: XR chest 1V portable CLINICAL HISTORY: sob TECHNIQUE: Radiograph of chest was acquired. COMPARISON: none FINDINGS: Small atelectatic bands in left lower lung zone. The lungs are clear and well-expanded with no pulmonary infiltrate or pleural effusion. The cardiomediastinal silhouette is within normal limits. No acute osseous abnormality. IMPRESSION: 1. No acute cardiopulmonary disease. 2. Small atelectatic bands in left lower lung zone. Electronically signed by Bijan Peralta 07-05-2025 03:38 AM Venous Doppler Study 07/05/25 02:23 BILATERAL LOWER EXTREMITY VENOUS DOPPLER CLINICAL HISTORY: Bilateral lower ext edema. dvt? COMPARISON STUDY: No previous studies for comparison. TECHNIQUE: Sonography of the deep venous system of the bilateral lower extremities was performed. Compression and augmentation were evaluated. FINDINGS: The bilateral common femoral, superficial femoral and popliteal veins were compressible. Augmentation was normal. Flow was shown within the deep calf vessels. IMPRESSION: No evidence of deep venous thrombus within the bilateral lower extremities. ACT 112: Negative or not required by law. Electronically signed by: Jimbo Rivera M.D. 07/05/2025 9:51 AM Chest CTA 07/05/25 04:17 CT ANGIOGRAM OF THE CHEST CLINICAL HISTORY: Upper back pain. Evaluate for pulmonary embolus. COMPARISON STUDY: Chest radiograph performed earlier today. TECHNIQUE: Following the IV administration of 112 cc of Optiray 320, CT angiogram of the chest was performed from the upper abdomen to the thoracic inlet utilizing the pulmonary embolus protocol. Images are reviewed in the axial, sagittal, and coronal planes. 3-D MIPS images are created and assessed. IV contrast was administered without complication. A dose lowering technique was utilized adhering to the principles of ALARA. CT DOSE: 853.61 mGy.cm FINDINGS: No pulmonary emboli are identified although the segmental and subsegmental pulmonary arteries are suboptimally assessed due to respiratory motion. There is no thoracic aortic dissection. Central pulmonary arteries are mildly dilated. The heart is mildly enlarged. There is no thoracic lymphadenopathy. No pneumothorax is present. There is a trace left pleural effusion. Lungs are suboptimally assessed due to respiratory motion. Linear densities and groundglass opacities favor atelectasis. No consolidation to suggest pneumonia. Note is made of a severe T8 compression fracture with wedging. There is 80% loss of vertebral body height anteriorly with minimal retropulsion along the inferior endplate. No extension into the posterior elements is noted. There is subtle sclerosis. The fracture line remains evident. There is a Schmorl's node along the inferior endplate of T12. IMPRESSION: 1. No pulmonary emboli identified although segmental and subsegmental pulmonary arteries suboptimally assessed due to respiratory motion. 2. No consolidation to suggest pneumonia. Linear densities and groundglass opacity suggestive of atelectasis. 3. Mild cardiomegaly. 4. Severe T8 compression fracture with 80% loss of vertebral body height and minimal retropulsion along the inferior endplate. The appearance favors a subacute fracture. ACT 112: Negative or not required by law. Electronically signed by: Jimbo Rivera M.D. 07/05/2025 9:59 AM PG Care Time/CCT Total # of Minutes Spent Total Time Spent with Patient: Total time spent is greater than 50% in coordination of care (as documented) at patient's floor/unit and/or counseling patient: [place] [address] IN/OBS CONSULT LVL 3,45M Patient Type New History Problem Focused Exam Problem Focused Medical Decision Making Straight Forward Diagnoses Compression fracture of T8 vertebra S22.060A
--- NOTE | 2025-07-05 14:46 | Psychiatric Consultation ---
Date of Consultation July 05, 2025 Impression / Recommendations Impression Diagnostically unclear what is causing the tremors and worsening weakness and differential is broad largely driven by neurological conditions. In addition has adjustment disorder with depressed and anxious mood in setting of having to deal with these new debilitating symptoms. Tardive dyskinesia can certainly lead to lip pursing and sometimes lip smacking or rolling movement of the feet or hands but large scale tremors are much more atypical. Sometimes with tardive dyskinesia symptoms worsen with reduce in anti-dopaminergic agents so possible recent dose change in Abilify has worsened TD movements. Agree with neurology involvement and workup for potentially more concerning causes of abnormal movements such as stroke. If this workup is noncontributory then would encourage outpatient referral for neurology movement disorder specialist. Would continue her current psychiatric medications, as she has been on these for many years, with the following recommendations per below. Given polypharmacy e ncourage ongoing intermittent monitoring of her QTc. Overall, I spent a total of 60 minutes with this case including review of chart records, review of labwork, direct evaluation of the patient at bedside, counseling the patient, discussion of the patient with the hospitalist provider, discussion with the psychiatric liason during clinical rounds and documentation in the electronic health record. (1) Paresthesia: (2) Dyskinesia, tardive: (3) Tremor, unspecified: (4) Post traumatic stress disorder: (5) Schizoaffective disorder: (6) Adjustment disorder with mixed anxiety and depressed mood: Plan -First rule out potential serious causes of her abnormal movements. If no acute findings then: -Get EKG to ensure QTc is <500ms -Continue psychiatric medications as ordered if QTc is stable with following suggestions for changes: * Discontinue Wellbutrin SR as rarely this can contribute to tremors * Discontinue prazosin and consider trial of propranolol 10mg TID in place of this as sometimes this can help with resting tremors until she can be evaluated by movement disorder specialist * Consider increasing abilify back to 15mg daily, if tremors improve with this adjustment would suggest some component of TD * Consider taper of ropinirole as this can contribute to abnormal movements via dopaminergic activity, defer to neurology/movement specialists -No acute psychiatric safety concerns at this time -Encourage PT/OT involvement given increased weakness Psych History Identifying Data Chelsea Calles is a 59-year-old female with past medical history significant for mild persistent asthma, obstructive sleep apnea, history of sinusitis, chronic heart failure with preserved ejection fraction, moderate mitral regurgitation, obesity, GERD, chronic constipation, history of right ovarian mass, degenerative disc disease, sciatica, tardive dyskinesia, chronic pain syndrome, chronic neck pain, anemia, bipolar 2 disorder, schizoaffective disorder bipolar type, schizoaffective disorder depression type, major depression, generalized anxiety disorder, mild cognitive impairment, generalized weakness, presents with ongoing tremors. Psychiatry consulted for medication recommendations given polypharmacy. Chief Complaint "Yeah I've been more depressed and anxious from dealing with this". History of Present Illness Chelsea was admitted for worsening tremors as well as new facial weakness and new tingling. Describes a history of anxiety and depression, PTSD as well as previous symptoms of psychosis of auditory hallucinations. Her psychosis has be en very stable, has not heard any auditory hallucinations since over a year ago and demonstrates no paranoia nor delusions on exam today. She does report some increases of depression and anxiety related to her worsening tremors. Today she has observed having tremors of her arms legs and feet. Initially observed resting tremors of her feet and legs with mild tremors of her arms as we start to discuss her tremors her arm movements become much more pronounced and severe and then seem to lessen as she is distracted by some other discussions. She is noted to have more intense tremors at rest when she is actively reaching for something they lessen a bit. She reports that her tremors have been much worse over the last 1-1/2 months and she has been feeling much weaker and struggling to walk around. She previously had tar dive dyskinesia symptoms that involved her mouth largely pursing her lips and this has also advanced to being more lipsmacking which she had never had before. She denies any thoughts of suicide. There have been no recent psychiatric medication changes except that her Abilify dose was reduced from 15 to 10 mg in the last week. She was started on Austedo 36 mg daily in January for her tardive dyskinesia and found this a little helpful. Current psychiatric meds notable for: Wellbutrin sustained-release, Prozac 80 mg, gabapentin (she takes this for neuropathy), Lamictal (states she takes this for shaking, but also with history of schizoaffective disorder so may be used as mood stabilizer (, Vistaril, prazosin (PTSD), and, ropinirole (resting legs has been on this a long time), topiramate (migraine prophylaxis), Abilify (history psychosis), trazodone (insomnia as needed), Aricept, Namenda. Psychiatric history notable for last inpatient admission in [place] in 2022 for depression, history of 3 prior suicide attempts (last ). She currently follows with a therapist at [facility] and sees a psychiatric PA at [facility]. Allergies Allergy/AdvReac Type Severity Reaction Status Date / Time valbenazine [From Ingrezza] Allergy Severe SHORT OF Verified 07/04/25 22:41 BREATH/CHEST PAIN, TIGHTNESS amoxicillin [From Augmentin] AdvReac Intermediate NAUSEA/VOMI Verified 07/04/25 22:08 TING clavulanic acid AdvReac Intermediate Nausea Verified 07/04/25 22:08 [From Augmentin] propranolol [From Inderal LA] AdvReac Intermediate Vertigo Verified 07/04/25 22:08 SURGICAL ADELE Allergy Intermediate REACTION Uncoded 07/04/25 22:08 AFTER KNEE SURGERY TO ADELE USED Home Medications Medication Instructions Recorded Confirmed Type albuterol sulfate 90 mcg/actuation 1 puffs inhalation Q4H PRN 10/22/20 07/04/25 History breath activated powder inhaler sob/wheezing ascorbate calcium (vitamin C) 500 500 mg PO BID 10/22/20 07/04/25 History mg tablet fluticasone propionate 50 2 sprays intranasal QAM 10/22/20 07/04/25 History mcg/actuation nasal spray,suspension (Flonase Allergy Relief) gabapentin 400 mg capsule 400 mg PO QDL 10/22/20 07/04/25 History montelukast 10 mg tablet 10 mg PO QAM 10/22/20 07/04/25 History (Singulair) oxybutynin chloride 5 mg tablet 5 mg PO BID 10/22/20 07/04/25 History pantoprazole 40 mg tablet,delayed 40 mg PO QAM 10/22/20 07/04/25 History release prazosin 2 mg capsule 2 mg PO HS 10/22/20 07/04/25 History aripiprazole 15 mg tablet (Abilify) 10 mg PO HS 07/04/25 07/05/25 History azelastine 137 mcg (0.1 %) nasal 2 spray intranasal BID 07/04/25 07/04/25 History spray bupropion HCl 100 mg tablet,12 hr 200 mg PO QPM 07/04/25 07/04/25 History sustained-release bupropion HCl 150 mg tablet,12 hr 150 mg PO QAM 07/04/25 07/04/25 History sustained-release deutetrabenazine 36 mg 36 mg PO DAILY 07/04/25 07/04/25 History tablet,extended release 24 hr docusate sodium 100 mg capsule 100 mg PO QPM 07/04/25 07/04/25 History donepezil 10 mg tablet 10 mg PO DAILY 07/04/25 07/04/25 History fluoxetine 40 mg capsule 80 mg PO QAM 07/04/25 07/04/25 History fluticasone furoate 200 1 inh inhalation DAILY 07/04/25 07/04/25 History mcg-vilanterol 25 mcg/dose inhalation powder (Breo Ellipta) gabapentin 600 mg tablet 600 mg PO AMHS 07/04/25 07/04/25 History hydroxyzine HCl 25 mg tablet 25 mg PO BID 07/04/25 07/04/25 History lamotrigine 25 mg tablet (Lamictal) 75 mg PO AMHS 07/04/25 07/04/25 History levocetirizine 5 mg tablet (Xyzal) 5 mg PO PM 07/04/25 07/04/25 History meloxicam 7.5 mg tablet 7.5 mg PO BID 07/04/25 07/04/25 History memantine 10 mg tablet 10 mg PO DAILY 07/04/25 07/04/25 History ondansetron HCl 4 mg tablet 4 mg PO Q8H PRN NAUSEA/VOMITING 07/04/25 07/04/25 History prazosin 1 mg capsule 1 mg PO HS 07/04/25 07/04/25 History ropinirole 0.25 mg tablet 0.25 mg PO TID 07/04/25 07/04/25 History spironolactone 25 mg tablet 25 mg PO QAM 07/04/25 07/04/25 History topiramate 50 mg tablet 50 mg PO QAM 07/04/25 07/04/25 History topiramate 50 mg tablet 75 mg PO HS 07/04/25 07/04/25 History torsemide 10 mg tablet 10 mg PO QAM 07/04/25 07/04/25 History trazodone 50 mg tablet 50 mg PO HS PRN Sleep 07/04/25 07/04/25 History Patient History Medical History Anxiety Asthma "controlled" Bipolar disorder Chronic back pain Claustrophobia Degenerative disc disease Depression GERD (gastroesophageal reflux disease) Controlled Memory loss mild short term Migraine Osteoarthritis Post traumatic stress disorder Surgical History H/O exploratory laparotomy removal of ectopic History of carpal tunnel surgery Left ulnar nerve surgery History of cholecystectomy History of endoscopic sinus surgery History of total knee replacement Right TKA (11/08/20): SAB x1 attempt + PNB at [facility] S/P BSO (bilateral salpingo-oophorectomy) S/P epidural steroid injection Family History Father Prostate cancer Brother Family history of diabetes mellitus Sister Family history of diabetes mellitus Social History Smoking Status: Never smoker Second Hand Exposure: Yes (FATHER SMOKED/FATHER IN LAW SMOKED); Do You Dip or Chew Tobacco: No; Hx Alcohol Use: No Hx Substance Use: No Preferred Language: Kiswahili Communication Ability: Effective Billiard Table Repairer Required: No Beliefs That Will Affect Care: None marital status: Unknown Current Living Situation: Family Current Living Situation Comment: home with sister current occupational status: disabled Other Information That Helps Us Care for You: No Feels Safe at Home: Yes Safety Concerns: Feels Safe At This Time Assistive Devices: CPAP and Glasses Physical Exam Vital Signs (Past 24 Hours): Last Vital Signs Temp 36.9 C 07/05/25 14:24 Pulse 84 07/05/25 14:24 Resp 18 07/05/25 14:24 BP 127/78 07/05/25 14:24 Pulse Ox 93 07/05/25 14:24 O2 Del Method Room Air 07/05/25 14:24 FiO2 21 07/05/25 02:25 Results & Data (PSY) Medications Administered Aripiprazole (Aripiprazole 10 Mg Tab) 10 mg PO HS SYED Stop: 08/04/25 02:44 Last Admin: 07/05/25 03:40 Dose: 10 mg Documented By: HENRI Ascorbic Acid (Ascorbic Acid 500 Mg Tab) 500 mg PO BID SYED Stop: 08/04/25 08:59 Last Admin: 07/05/25 10:02 Dose: 500 mg Documented By: LINSEY Azelastine HCl (Azelastine Hcl 0.1% Nasal 200 Sprays/27,400 Mcg Btl) 2 sprays NA BID SYED Stop: 08/04/25 08:59 Last Admin: 07/05/25 10:02 Dose: 2 sprays Documented By: LINSEY Bupropion HCl (Bupropion Sr 150 Mg Tabcr) 150 mg PO QAM [facility] Stop: 08/04/25 08:59 Last Admin: 07/05/25 10:01 Dose: 150 mg Documented By: LINSEY Donepezil HCl (Donepezil Hcl 10 Mg Tab) 10 mg PO DAILY [facility] Stop: 08/04/25 08:59 Last Admin: 07/05/25 09:59 Dose: 10 mg Documented By: LINSEY Fluoxetine HCl (Fluoxetine Hcl 20 Mg Cap) 80 mg PO QAM [facility] Stop: 08/04/25 08:59 Last Admin: 07/05/25 09:54 Dose: 80 mg Documented By: LINSEY Fluticasone Propionate (Fluticasone Propionate Na Spr 16 Gm Btl) 2 sprays NA QAM [facility] Stop: 08/04/25 08:59 Last Admin: 07/05/25 10:04 Dose: 2 sprays Documented By: LINSEY Fluticasone/Vilanterol (Fluticasone/Vilanterol 200/25mcg 14 Puffs/Inhaler) 1 puffs INH DAILY [facility]ED Stop: 08/04/25 08:59 Last Admin: 07/05/25 10:03 Dose: 1 puffs Documented By: LINSEY Gabapentin (Gabapentin 600 Mg Tab) 600 mg PO AMHS [facility] Stop: 08/04/25 08:59 Last Admin: 07/05/25 09:57 Dose: 600 mg Documented By: LINSEY Gabapentin (Gabapentin 400 Mg Cap) 400 mg PO QDL [facility] Stop: 08/04/25 11:29 Last Admin: 07/05/25 11:41 Dose: 400 mg Documented By: LINSEY Hydroxyzine HCl (Hydroxyzine Hcl 25 Mg Tab) 25 mg PO BID [facility] Stop: 08/04/25 08:59 Last Admin: 07/05/25 09:59 Dose: 25 mg Documented By: LINSEY Sodium Chloride (Nss) 1,000 mls @ 80 mls/hr IV .[id number] [facility] Stop: 07/05/25 14:52 Last Admin: 07/05/25 03:40 Dose: 80 mls/hr Documented By: HENRI Lamotrigine (Lamotrigine 25 Mg Tab) 75 mg PO AMHS [facility]; Protocol Stop: 08/04/25 08:59 Last Admin: 07/05/25 09:56 Dose: 75 mg Documented By: LINSEY Memantine (Memantine Hcl 10 Mg Tab) 10 mg PO DAILY [facility] Stop: 08/04/25 08:59 Last Admin: 07/05/25 10:00 Dose: 10 mg Documented By: LINSEY Miscellaneous (Austedo 36mg--Order Awaiting Action) 1 each N/A QS [facility] Stop: 08/04/25 07:59 Last Admin: 07/05/25 11:23 Dose: Not Given Documented By: LINSEY Montelukast Sodium (Montelukast Sodium 10 Mg Tablet) 10 mg PO QAM [facility] Stop: 08/04/25 08:59 Last Admin: 07/05/25 09:56 Dose: 10 mg Documented By: LINSEY Oxybutynin Chloride (Oxybutynin Chloride 5 Mg Tab) 5 mg PO BID [facility] Stop: 08/04/25 08:59 Last Admin: 07/05/25 09:59 Dose: 5 mg Documented By: LINSEY Pantoprazole Sodium (Pantoprazole 40 Mg Tab) 40 mg PO QAM [facility] Stop: 08/04/25 08:59 Last Admin: 07/05/25 10:00 Dose: 40 mg Documented By: LINSEY Ropinirole HCl (Ropinirole Hcl 0.25 Mg Tablet) 0.25 mg PO TID [facility] Stop: 08/04/25 08:59 Last Admin: 07/05/25 13:08 Dose: 0.25 mg Documented By: Admin: 07/05/25 09:58 Dose: 0.25 mg Documented By: LINSEY Spironolactone (Spironolactone 25 Mg Tab) 25 mg PO QAM [facility] Stop: 08/04/25 08:59 Last Admin: 07/05/25 09:58 Dose: 25 mg Documented By: LINSEY Topiramate (Topiramate 50 Mg Tab) 50 mg PO QAM [facility] Stop: 08/04/25 08:59 Last Admin: 07/05/25 10:00 Dose: 50 mg Documented By: LINSEY Torsemide (Torsemide 10 Mg Tab) 10 mg PO QAM [facility] Stop: 08/04/25 08:59 Last Admin: 07/05/25 10:01 Dose: 10 mg Documented By: LINSEY Coding Level of Care Code 00151 IN/OBS CONSULT LVL 4,60M Diagnoses Paresthesia R20.2 Dyskinesia, tardive G24.01 Tremor, unspecified R25.1 Post traumatic stress disorder F43.10 Schizoaffective disorder F25.9 Adjustment disorder with mixed anxiety and depressed mood F43.23
[2025-07-05] MEDS: LACTATED RINGER'S 1,000 ML IV SCH (15:25)
--- NOTE | 2025-07-05 15:39 | CT Scan Report ---
CT angio neck with con CLINICAL HISTORY: 59 years-old Female with Stroke like symptoms. Acute stroke like symptoms COMPARISON STUDY: CTA head of same day, at the T10 3025 TECHNIQUE: Following the IV administration of 1 15 mL of Optiray, CT angiogram of the neck was perfor med from the aortic arch to the skull base. Images are reviewed in the axial, sagittal, and coronal p lanes. 3-D MIPS images are created and assessed. IV contrast was administered without complication. A ll measurements were calculated based on NASCET criteria. A dose lowering technique was utilized adh ering to the principles of ALARA. CT DOSE: 436.94 mGy.cm FINDINGS: Three-vessel morphology of the thoracic aortic arch. Patency of the innominate and imaged subclavian arteries. The common and internal carotid arteries are patent. The left vertebral artery is dominant. The vertebral arteries are patent. There is no aneurysm, dissection, high-grade stenosis identified. CTA head dictated separately. Partially imaged linear consolidation of the right upper lobe favors atelectasis. Degenerative change s of the cervical spine. No acute fracture identified. IMPRESSION:Unremarkable CTA of the neck without aneurysm, dissection, high-grade stenosis or arterial occlusion. ACT 112: Negative or not required by law. The above report was generated using voice recognition software. It may contain grammatical, syntax o r spelling errors. Electronically signed by: Anam Lanza M.D. 07/05/2025 3:37 PM
--- NOTE | 2025-07-05 15:49 | CT Scan Report ---
CT angio head w con CLINICAL HISTORY: Stroke like symptoms. TECHNIQUE: Unenhanced axial CT scan of the brain is performed. Subsequently, following the IV adminis tration of 115 cc of Optiray, CT angiogram of the brain was performed from the skull base to the vert ex. Images are reviewed in the axial, sagittal, and coronal planes. 3-D MIPS images are created and a ssessed. IV contrast was administered without complication. All measurements were obtained according to NASCET criteria. A dose lowering technique was utilized adhering to the principles of ALARA. CT DOSE: 436 COMPARISON STUDY: Noncontrast head CT yesterday. FINDINGS: Distal internal carotid and vertebral arteries are patent. Basilar artery is widely patent. Anterior, middle, and posterior cerebral arteries are patent bilaterally. Cerebral venous sinuses op acify normally. No intracranial aneurysm seen. IMPRESSION: Unremarkable CTA of the brain. ACT 112: Negative or not required by law. The above report was generated using voice recognition software. It may contain grammatical, syntax o r spelling errors. Electronically signed by: Luis Walton M.D. 07/05/2025 3:48 PM
--- NOTE | 2025-07-05 18:41 | Magnetic Resonance Report ---
MRI THORACIC SPINE WITHOUT CONTRAST TECHNIQUE: An MRI examination of the thoracic spine was performed. The examination consists of sagittal T1-weighted, inversion recovery and T2 weighted images as well as axial T1-weighted, T2-weighted and gradient echo images. INDICATION: Back pain COMPARISON: CT thorax evaluation from the same day is not viewable in our system. FINDINGS: There is a compression fracture of T8 vertebral body resulting in approximately 70% vertebral body height loss anteriorly and moderate retropulsion. There is marrow edema signal to the vertebral body indicating acute to subacute nature of the fracture. At this level, the posterior cortex of the vertebral body appears to contact the spinal cord resulting in its flattening and indentation of the surface. Mild intramedullary T2 hyperintensity may be suggested (series 9, image 10). Moderate neural foraminal narrowing is also present at this level. No significant spondylolisthesis. There are no significant degenerative changes otherwise with mild disc herniations at multiple levels. IMPRESSION: Acute/subacute compression fracture of T8 vertebral body resulting in approximately 70% vertebral body height loss anteriorly and moderate retropulsion. The posterior cortex of the vertebral body appears to contact the spinal cord resulting in its flattening and indentation of the ventral surface and mild intramedullary T2 hyperintensity may be suggested though evaluation limited by motion. Moderate neuroforaminal narrowing is also present at this level. Electronically signed by Cirilo Levin 07-05-2025 6:41 PM
[2025-07-05] MEDS: PROPRANOLOL HCL 10 MG TAB PO SCH (18:48)
--- NOTE | 2025-07-05 20:57 | Electrocardiogram Report ---
Test Reason : Blood Pressure : */* mmHG Vent. Rate : 95 BPM Atrial Rate : 95 BPM P-R Int : 146 ms QRS Dur : 92 ms QT Int : 368 ms P-R-T Axes : 22 -7 -32 degrees QTcB Int : 462 ms Normal sinus rhythm Poor R wave progression, consider anterior FL vs. lead placement vs. LVH Nonspecific ST abnormality Abnormal ECG No previous ECGs available Confirmed by Tacho Davis ([id number]) on 07/05/2025 8:56:59 PM Referred By: Christina Govea Confirmed By: Tacho Davis
[2025-07-05] MEDS ORDERED: PRAZOSIN HCL 1 MG CAP PO SCH ×2 (21:00)
[2025-07-05] MEDS: DOCUSATE SODIUM 100 MG CAP PO SCH (21:00)
[2025-07-05] MEDS ORDERED: ARIPiprazole 5 MG TAB PO SCH (21:00)
[2025-07-05] MEDS ORDERED: ARIPiprazole 15 MG TAB PO SCH (21:00)
[2025-07-05] MEDS: TOPIRAMATE 25 MG TAB PO SCH (21:04)
[2025-07-05] MEDS: CETIRIZINE HCL 10 MG TABLET PO SCH (21:05)
[2025-07-05] MEDS: ARIPiprazole 15 MG TAB PO SCH (21:12)
[2025-07-06] MEDS: ENOXAPARIN INJ 40 MG/0.4 ML SYR SQ SCH (03:19)
[2025-07-06 07:28] LABS: Hematocrit (blood only) 35.5 % (37.0-47.0); Hemoglobin 11.5 g/dl (12.0-16.0); Mean Corpuscular Hemoglobin 28.0 pg (25.0-34.0); Mean Corpuscular Volume 86.6 fL (80.0-100.0); Platelet Count 272 K/uL (130-400); RDW Standard Deviation 47.3 fL (36.4-46.3); Red Blood Count 4.10 M/uL (4.20-5.40); White Blood Count 7.03 K/ul (4.8-10.8)
[2025-07-06 08:14] LABS: Hemoglobin A1C 5.1 % (4.5-5.6)
[2025-07-06 08:19] LABS: Anion Gap 6.0 (3-11); Blood Urea Nitrogen 13.0 mg/dl (6-23); Calcium 9.4 mg/dl (8.6-10.3); Carbon Dioxide 29.0 mmol/L (21-32); Chloride 105.0 mmol/L (98-107); Cholesterol 181.0 mg/dl (0-200); Creatinine Clr Calc Pharmacy 61.3 ml/min; Glucose 85.0 mg/dl (70-99(Fasting)); HDL Cholesterol 66.0 mg/dl; Potassium 3.6 mmol/L (3.5-5.1); Sodium 140.0 mmol/L (136-145); Triglycerides 77.0 mg/dl (0-150)
--- NOTE | 2025-07-06 14:06 | Psychiatric Progress Note ---
Date of Service July 06, 2025 Impression / Recommendations Impression Diagnostically unclear what is causing the tremors and worsening weakness and differential is broad largely driven by neurological conditions. In addition has adjustment disorder with depressed and anxious mood in setting of having to deal with these new debilitating symptoms. Tardive dyskinesia can certainly lead to lip pursing and sometimes lip smacking or rolling movement of the feet or hands but large scale tremors are much more atypical. Sometimes with tardive dyskinesia symptoms worsen with reduce in anti-dopaminergic agents so possible recent dose change in Abilify has worsened TD movements. A: patient experiencing some improvement, after multiple medication changes yesterday. She is not quite yet back to baseline. She is also reporting high anxiety, which predates the medicine changes from yesterday. Discussed a retrial of BuSpar, which was helpful in the past, and she was agreeable to this. Additionally, could consider increasing propranolol, but her heart rate has been low at times (52 this morning). Overall, I spent a total of 35 minutes with this case including review of chart records, review of Imaging, direct evaluation of the patient at bedside, counseling the patient, discussion with the psychiatric liason during clinical rounds and documentation in the electronic health record. (1) Paresthesia: (2) Dyskinesia, tardive: (3) Tremor, unspecified: (4) Post traumatic stress disorder: (5) Schizoaffective disorder: (6) Adjustment disorder with mixed anxiety and depressed mood: Plan 07/06/25: - Good improvement already notable, but not back to baseline. - Recommend starting BuSpar 5 mg 3 times daily, just be scheduled with the propranolol. - Continue with other medication changes that were initiated yesterday, and give more time. - Will check in again tomorrow to ensure that improvement is continuing. 07/05/25: -First rule out potential serious causes of her abnormal movements. If no acute findings then: -Get EKG to ensure QTc is <500ms -Continue psychiatric medications as ordered if QTc is stable with following suggestions for changes: * Discontinue Wellbutrin SR as rarely this can contribute to tremors * Discontinue prazosin and consider trial of propranolol 10mg TID in place of this as sometimes this can help with resting tremors until she can be evaluated by movement disorder specialist * Consider increasing abilify back to 15mg daily, if tremors improve with this adjustment would suggest some component of TD * Consider taper of ropinirole as this can contribute to abnormal movements via dopaminergic activity, defer to neurology/movement specialists -No acute psychiatric safety concerns at this time -Encourage PT/OT involvement given increased weakness Interval History Identifying Information Chelsea Calles is a 59-year-old female with past medical history significant for mild persistent asthma, obstructive sleep apnea, history of sinusitis, chronic heart failure with preserved ejection fraction, moderate mitral regurgitation, obesity, GERD, chronic constipation, history of right ovarian mass, degenerative disc disease, sciatica, tardive dyskinesia, chronic pain syndrome, chronic neck pain, anemia, bipolar 2 disorder, schizoaffective disorder bipolar type, schizoaffective disorder depression type, major depression, generalized anxiety disorder, mild cognitive impairment, generalized weakness, presents with ongoing tremors. Psychiatry consulted for medication recommendations given polypharmacy. Chief Complaint " I am doing a little better". Subjective Subjective Patient was seen & assessed and interval progress reviewed with psychiatric liaison. patient reports that her tremor is doing little better today. Her arm is no longer moving up and down spastic Felix. She continues to experience shaking of both of her hands, and this is getting closer to her baseline, but still little worse than typical. She is still smacking her lips and feels this is not improved since yesterday. She said she was moving so much in the MRI machine yesterday is unclear if she got a good picture. She also reports "my nerve medicine was not really working" at home and is requesting a change, since she couldn't leave the house without having panic attacks. She was on hydroxyzine and feels it was not helpful. She previously was on BuSpar years ago, and only stopped it because it had decreased in effectiveness over time. Also reports a history of Klonopin use. Physical Exam Vital Signs (Past 24 Hours) Last Vital Signs Temp 37.0 C 07/06/25 11:19 Pulse 68 07/06/25 11:19 Resp 18 07/06/25 11:19 BP 146/89 H 07/06/25 11:19 Pulse Ox 92 07/06/25 11:19 O2 Del Method Room Air 07/06/25 11:19 FiO2 21 07/06/25 02:00 Results & Data ([facility]) Laboratory Results Laboratory Results - last 24 hr 07/06/25 07:06 WBC 7.03 RBC 4.10 L Hgb 11.5 L Hct 35.5 L MCV 86.6 MCH 28.0 MCHC 32.4 RDW Std Deviation 47.3 H RDW Coeff of Bridgett 15.0 H Plt Count 272 MPV 9.0 L Sodium 140 Potassium 3.6 Chloride 105 Carbon Dioxide 29 Anion Gap 6 BUN 13 Creatinine 1.05 Est Cr Clr Drug Dosing 61.3 eGFR 61.97 BUN/Creatinine Ratio 12.4 Glucose 85 Estimat Average Glucose 100 Hemoglobin A1c 5.1 Calcium 9.4 Triglycerides 77 Cholesterol 181 LDL Cholesterol, Calc 100 VLDL Cholesterol, Calc 15 HDL Cholesterol 66 Cholesterol/HDL Ratio 2.7 Current Inpatient Medications Current Inpatient Medications: Current Inpatient Medications Acetaminophen (Acetaminophen 325 Mg Tab) 650 mg PO Q4H PRN PRN Reason: Pain or Fever Stop: 08/04/25 02:22 Albuterol (Albuterol Hfa 8 Gm Inhaler) 1 puffs INH Q4H PRN PRN Reason: sob/wheezing Stop: 08/04/25 02:26 Aripiprazole (Aripiprazole 15 Mg Tab) 15 mg PO HS SYED Stop: 08/04/25 20:59 Last Admin: 07/05/25 21:12 Dose: 15 mg Ascorbic Acid (Ascorbic Acid 500 Mg Tab) 500 mg PO BID SYED Stop: 08/04/25 08:59 Last Admin: 07/06/25 09:28 Dose: 500 mg Azelastine HCl (Azelastine Hcl 0.1% Nasal 200 Sprays/27,400 Mcg Btl) 2 sprays NA BID SYED Stop: 08/04/25 08:59 Last Admin: 07/06/25 09:27 Dose: 2 sprays Bupropion HCl (Bupropion Sr 150 Mg Tabcr) 150 mg PO QAM [facility] Stop: 08/04/25 08:59 Last Admin: 07/05/25 10:01 Dose: 150 mg Bupropion HCl (Bupropion Sr 100 Mg Tabcr) 200 mg PO DAILY@1500 [facility] Stop: 08/04/25 14:59 Last Admin: 07/05/25 15:57 Dose: 200 mg Cetirizine HCl (Cetirizine Hcl 10 Mg Tablet) 10 mg PO PM SYED Stop: 08/04/25 20:59 Last Admin: 07/05/25 21:05 Dose: 10 mg Docusate Sodium (Docusate Sodium 100 Mg Cap) 100 mg PO QPM [facility] Stop: 08/04/25 20:59 Last Admin: 07/05/25 21:00 Dose: Not Given Donepezil HCl (Donepezil Hcl 10 Mg Tab) 10 mg PO DAILY [facility] Stop: 08/04/25 08:59 Last Admin: 07/06/25 09:29 Dose: 10 mg Enoxaparin Sodium (Enoxaparin Inj 40 Mg/0.4 Ml Syr) 40 mg SQ Q24H [facility] Stop: 08/05/25 05:59 Last Admin: 07/06/25 03:19 Dose: 40 mg Fluoxetine HCl (Fluoxetine Hcl 20 Mg Cap) 80 mg PO QAM [facility] Stop: 08/04/25 08:59 Last Admin: 07/06/25 09:29 Dose: 80 mg Fluticasone Propionate (Fluticasone Propionate Na Spr 16 Gm Btl) 2 sprays NA DAILY [facility] Stop: 08/06/25 08:59 Fluticasone/Vilanterol (Fluticasone/Vilanterol 200/25mcg 14 Puffs/Inhaler) 1 puffs INH DAILY [facility] Stop: 08/04/25 08:59 Last Admin: 07/06/25 09:27 Dose: 1 puffs Gabapentin (Gabapentin 600 Mg Tab) 600 mg PO [facility] Stop: 08/04/25 08:59 Last Admin: 07/06/25 09:27 Dose: 600 mg Gabapentin (Gabapentin 400 Mg Cap) 400 mg PO QDL [facility] Stop: 08/04/25 11:29 Last Admin: 07/06/25 13:39 Dose: 400 mg Hydroxyzine HCl (Hydroxyzine Hcl 25 Mg Tab) 25 mg PO BID [facility] Stop: 08/04/25 08:59 Last Admin: 07/06/25 09:28 Dose: 25 mg Lamotrigine (Lamotrigine 25 Mg Tab) 75 mg PO [facility]HS [facility]; Protocol Stop: 08/04/25 08:59 Last Admin: 07/06/25 09:27 Dose: 75 mg Memantine (Memantine Hcl 10 Mg Tab) 10 mg PO DAILY [facility] Stop: 08/04/25 08:59 Last Admin: 07/06/25 09:30 Dose: 10 mg Miscellaneous (Austedo 36mg--Order Awaiting Action) 1 each N/A QS [facility] Stop: 08/04/25 07:59 Last Admin: 07/05/25 11:23 Dose: Not Given Montelukast Sodium (Montelukast Sodium 10 Mg Tablet) 10 mg PO QAM [facility] Stop: 08/04/25 08:59 Last Admin: 07/06/25 09:30 Dose: 10 mg Nitroglycerin (Nitroglycerin Sl 0.4 Mg/Tab Tab) 0.4 mg SL Q5M PRN PRN Reason: Chest Pain Stop: 08/04/25 02:22 Oxybutynin Chloride (Oxybutynin Chloride 5 Mg Tab) 5 mg PO BID [facility] Stop: 08/04/25 08:59 Last Admin: 07/06/25 09:27 Dose: 5 mg Oxycodone HCl (Oxycodone Hcl Ir 5 Mg Tab (Immediate Release)) 5 mg PO Q6H PRN PRN Reason: Mod-Sev Pain (Scale 4-10) Stop: 07/19/25 17:12 Last Admin: 07/06/25 03:18 Dose: 5 mg Pantoprazole Sodium (Pantoprazole 40 Mg Tab) 40 mg PO QAM [facility] Stop: 08/04/25 08:59 Last Admin: 07/06/25 09:30 Dose: 40 mg Polyethylene Glycol (Polyethylene (Miralax) 17 Gm Pack) 17 gm PO DAILY PRN PRN Reason: Constipation Stop: 08/04/25 02:22 Prazosin HCl (Prazosin Hcl 1 Mg Cap) 1 mg PO HS [facility] Stop: 08/04/25 20:59 Prazosin HCl (Prazosin Hcl 1 Mg Cap) 2 mg PO HS [facility] Stop: 08/04/25 20:59 Propranolol HCl (Propranolol Hcl 10 Mg Tab) 10 mg PO TID [facility] Stop: 08/04/25 17:29 Last Admin: 07/06/25 13:39 Dose: 10 mg Ropinirole HCl (Ropinirole Hcl 0.25 Mg Tablet) 0.25 mg PO BID [facility] Stop: 08/04/25 20:59 Last Admin: 07/06/25 09:28 Dose: 0.25 mg Spironolactone (Spironolactone 25 Mg Tab) 25 mg PO QAM [facility] Stop: 08/04/25 08:59 Last Admin: 07/06/25 09:31 Dose: 25 mg Topiramate (Topiramate 25 Mg Tab) 75 mg PO [facility] Stop: 08/04/25 20:59 Last Admin: 07/05/25 21:04 Dose: 75 mg Topiramate (Topiramate 50 Mg Tab) 50 mg PO QAM [facility] Stop: 08/04/25 08:59 Last Admin: 07/06/25 09:30 Dose: 50 mg Torsemide (Torsemide 10 Mg Tab) 10 mg PO QAM [facility] Stop: 08/04/25 08:59 Last Admin: 07/06/25 09:30 Dose: 10 mg Trazodone HCl (Trazodone Hcl 50 Mg Tab) 50 mg PO HS PRN PRN Reason: Sleep Stop: 08/04/25 02:22 Last Admin: 07/06/25 00:24 Dose: 50 mg
--- NOTE | 2025-07-06 15:19 | Hospitalist Progress Note ---
Date of Service July 06, 2025 Assessment & Plan (1) Tremor, unspecified: Plan: 59-year-old female with past medical history significant for mild persistent asthma, obstructive sleep apnea, history of sinusitis, chronic heart failure with preserved ejection fraction, moderate mitral regurgitation, obesity, GERD, chronic constipation, history of right ovarian mass, degenerative disc disease, sciatica, tardive dyskinesia, chronic pain syndrome, chronic neck pain, anemia, bipolar 2 disorder, schizoaffective disorder bipolar type, schizoaffective disorder depression type, major depression, generalized anxiety disorder, mild cognitive impairment, generalized weakness, presents with ongoing tremors. Patient states she is having tremors for several weeks but last week they got worse. Since last 1 week she is also had some tingliness on the left side of the face. Also some left ear pain. She says she is also having slurred speech for the last couple of weeks. Having headaches. Having back pain. Having right-sided chest pain on and off for 1 to 2 weeks. Has dry cough. Complains of shortness of breath. Lately having some difficulty swallowing. Scratchy throat. No runny nose. Afebrile. Patient states her vision she cannot focus. No nausea or abdominal pain. States last couple of days not micturated much.Normal bowel movements. Ambulates with walker. Lately having difficulty ambulating. Lives with her sister. She was in the [facility] yesterday for similar complaints. Currently having a lot of tremors in the upper extremities and face. Hemodynamics okay. Tremors uncontrolled Likely tardive dyskinesia/antipsychotics Strokelike symptoms--presented with paresthesias left facial, left upper extremity/slurred speech --CT head:No acute intracranial abnormality. -- CTA head :Unremarkable CTA of the brain. --CTA Neck:Unremarkable CTA of the neck without aneurysm, dissection, high-grade stenosis or arterial occlusion. -- Echo:Pending --Lipid panel: Within normal limits, LDL 100 --HbA1c 5.1 Appreciate neurology input Difficult to obtain MRI due to significant tremor PT OT, speech eval Deutetrabenazine on hold due to non-formulary and patient unable to obtain it from home Appreciate psychiatry input: Adjusted medications as recommended by psychiatry Tremors slowly improving PT OT prior to discharge Schizoaffective disorder Bipolar disorder General Anxiety disorder Depression Polypharmacy On multiple antipsychotics/mood stabilizers Appreciate psychiatry input Bupropion, prazosin discontinued Abilify if increased back to 15 mg daily Started on BuSpar 5 mg 3 times daily Also started on propranolol 10 mg 3 times daily Continue to taper down ropinirole Needs follow-up with psychiatry on discharge Elevated D-dimer --CTA:No pulmonary emboli --Venous Doppler:No evidence of deep venous thrombus within the bilateral lower extremities. Compression fracture of T8 vertebrae --CT showed Severe T8 compression fracture with 80% loss of vertebral body he ight and minimal retropulsion along the inferior endplate. The appearance favors a subacute fracture. TLSO brace with activity PT OT, fall precautions Appreciate orthopedics input Hypokalemia Replace and monitor Dysphagia Denies odynophagia Aspiration precautions Speech therapy consulted Will likely need video swallow study as able Seem to be tolerating current diet Chest pain Right-sided and intermittent Likely referred pain from T8 fracture Troponin x 2 negative Monitor Chest pain resolved Chronic heart failure with preserved function Moderate mitral regurgitation Currently no signs of significant volume overload Continue home diuretics Monitor volume status History of mild present asthma No signs of acute exacerbation Continue home inhalers Obstructive sleep apnea CPAP nightly Chronic pain Hold meloxicam Continue gabapentin Tylenol as needed Mild cognitive impairment On memantine and donepezil 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 in 2019 DVT prophylaxis Lovenox SQ CODE STATUS Full code Disposition PT OT prior to discharge Admission and Anticipated Discharge Date Admission Date: July 04, 2025 Subjective Patient is seen and examined at bedside States feeling a lot better today Tremors slowly improving Chest pain resolved States having some left ear congestion Poor sleep overnight, feels tired Back pain improving No other complaints Review of Systems Review of Systems: All systems reviewed & are unremarkable except as noted in Subjective Physical Exam Physical Exam: Physical Exam: Vitals signs as noted above General Appearance:Overweight, no apparent distress Head: normocephalic, Atraumatic Eyes: normal inspection, EOMI Neck: supple, Trachea midline Respiratory/Chest: Normal breath sounds, CTA, No accessory muscle use Cardiovascular: S1, S2, No murmur Abdomen/GI:Soft, Non tender, Bowel sounds present Extremities/Musculoskeletal:normal inspection, Trace edema Neurologic/Psych:AAOX3, grossly no focal neurological deficits,+ Tremor predominantly in upper extremities Skin: normal color, warm Results & Data Results & Data Vital Signs (Past 12 Hours) Vital Signs Temp Pulse Pulse Resp BP BP Pulse Ox 07/06/25 14:56 36.6 C 67 18 134/83 94 07/06/25 11:19 37.0 C 68 18 146/89 H 92 07/06/25 08:00 52 L 07/06/25 07:24 36.7 C 62 18 143/87 H 91 07/06/25 03:43 36.6 C 61 18 129/82 94 O2 Del Method 07/06/25 14:56 Room Air 07/06/25 11:19 Room Air 07/06/25 08:00 07/06/25 07:24 Room Air 07/06/25 03:43 CPAP Laboratory Results Short CBC 07/06/25 Range/Units 07:06 WBC 7.03 (4.8-10.8) K/ul Hgb 11.5 L (12.0-16.0) g/dl Hct 35.5 L (37.0-47.0) % Plt Count 272 (130-400) K/uL BMP 07/06/25 07:06 Sodium 140 Potassium 3.6 Chloride 105 Carbon Dioxide 29 BUN 13 Creatinine 1.05 Glucose 85 Calcium 9.4
--- NOTE | 2025-07-06 16:20 | XCELERA ---
[id number] \\[id number]
[2025-07-06] MEDS: busPIRone 5 MG TAB PO SCH (22:04)
--- NOTE | 2025-07-06 22:14 | Electrocardiogram Report ---
Test Reason : Blood Pressure : */* mmHG Vent. Rate : 63 BPM Atrial Rate : 63 BPM P-R Int : 152 ms QRS Dur : 86 ms QT Int : 448 ms P-R-T Axes : 29 -12 1 degrees QTcB Int : 458 ms Normal sinus rhythm Nonspecific T wave abnormality When compared with ECG of 04-Jul-2025 20:40, Vent. rate has decreased by 32 bpm Confirmed by Miguel Wood [id number] on 07/06/2025 10:14:41 PM Referred By: Christina Govea Confirmed By: Miguel Wood
[2025-07-07 07:04] LABS: Hematocrit (blood only) 38.5 % (37.0-47.0); Hemoglobin 12.3 g/dl (12.0-16.0); Mean Corpuscular Hemoglobin 28.1 pg (25.0-34.0); Mean Corpuscular Volume 87.9 fL (80.0-100.0); Platelet Count 305 K/uL (130-400); RDW Standard Deviation 47.8 fL (36.4-46.3); Red Blood Count 4.38 M/uL (4.20-5.40); White Blood Count 7.66 K/ul (4.8-10.8)
[2025-07-07 07:30] LABS: Anion Gap 6.0 (3-11); Blood Urea Nitrogen 15.0 mg/dl (6-23); Calcium 9.2 mg/dl (8.6-10.3); Carbon Dioxide 28.0 mmol/L (21-32); Chloride 106.0 mmol/L (98-107); Creatinine Clr Calc Pharmacy 70.4 ml/min; Glucose 91.0 mg/dl (70-99(Fasting)); Potassium 3.6 mmol/L (3.5-5.1); Sodium 140.0 mmol/L (136-145)
[2025-07-07] MEDS: FLUTICASONE PROPIONATE NA SPR 16 GM BTL SCH (08:58)
--- NOTE | 2025-07-07 12:56 | Psychiatric Progress Note ---
Date of Service July 07, 2025 Impression / Recommendations Impression Diagnostically unclear what is causing the tremors and worsening weakness and differential is broad largely driven by neurological conditions. In addition has adjustment disorder with depressed and anxious mood in setting of having to deal with these new debilitating symptoms. Tardive dyskinesia can certainly lead to lip pursing and sometimes lip smacking or rolling movement of the feet or hands but large scale tremors are much more atypical. Sometimes with tardive dyskinesia symptoms worsen with reduce in anti-dopaminergic agents so possible recent dose change in Abilify has worsened TD movements. A: Patient reports tremor is little bit worse today. She is notably shaking while trying to eat today. She also reported 1 breakthrough auditory hallucination last evening, this has not been sustained. Likely that due to the recent fluctuations in her Abilify dose. I did recommend she have her sister bring in her Austedo so she can restart that here for the tardive dyskinesia. Also reviewed her medication profile again at length today. It is notable for quite a bit of polypharmacy. Donepezil can increase risk of EPS from antipsychotics, and Prozac can (as a 2 D6 inhibitor) increase serum levels of donepezil. Recommend decreasing donepezil to 5 mg or discontinuing entirely. Additionally, increased tremors and movement problems could be related to mild version of serotonin syndrome. She is on Prozac high dose, and this could be decreased to 60 mg. Also to further minimize polypharmacy, I do recommend discontinuing the Vistaril, now that we started BuSpar for anxiety, and are also titrating propranolol. I will also note that she is on 3 antiepileptic medications (gabapentin, Lamictal, Topamax), but says I am unclear exactly what conditions those medications are managing, I did not make specific recommendations about discontinuing them. Likely, none of them are contributing to her current tremors, but to decrease risk overall, I would recommend some consolidation of these 3 meds if possible. Finally, could increase propranolol a bit to target tremors and anxiety - BP has been stable, and HR tends to be good throughout the day, just low in the AM. She may be able to tolerate 20mg BID, but I'd give in AM and late afternoon, rather than AM/HS. current/home psych meds: abilify 15mg daily buspar 5mg TID aricept 10mg daily prozac 80mg daily ?gabapentin 600mg AM and 400mg dinner vistaril 25mg BID ?lamictal 75mg AM namenda 10mg daily propranolol 10mg TID ?topamax 50mg AM and 75mg HS trazodone 50mg HS PRN wellbutrin SR 150mg in AM and 200mg afternoon (on hold) prazosin 3mg HS (on hold) austedo (on hold) Overall, I spent a total of 40 minutes with this case including review of chart records, review of Imaging, direct evaluation of the patient at bedside, cou nseling the patient, discussion with the psychiatric liason during clinical rounds and documentation in the electronic health record. (1) Paresthesia: (2) Dyskinesia, tardive: (3) Tremor, unspecified: (4) Post traumatic stress disorder: (5) Schizoaffective disorder: (6) Adjustment disorder with mixed anxiety and depressed mood: Plan 07/07/25: - decrease donepezil to 5mg. Can d/c after several days if desired. - d/c vistaril to minimize polypharmacy - decrease prozac to 60mg daily - increase propranolol to 20mg BID in the AM and late afternoon, to be held for HR<60 or SBP<100. 07/06/25: - Good improvement already notable, but not back to baseline. - Recommend starting BuSpar 5 mg 3 times daily, just be scheduled with the propranolol. - Continue with other medication changes that were initiated yesterday, and give more time. - Will check in again tomorrow to ensure that improvement is continuing. 07/05/25: -First rule out potential serious causes of her abnormal movements. If no acute findings then: -Get EKG to ensure QTc is <500ms -Continue psychiatric medications as ordered if QTc is stable with following suggestions for changes: * Discontinue Wellbutrin SR as rarely this can contribute to tremors * Discontinue prazosin and consider trial of propranolol 10mg TID in place of this as sometimes this can help with resting tremors until she can be evaluated by movement disorder specialist * Consider increasing abilify back to 15mg daily, if tremors improve with this adjustment would suggest some component of TD * Consider taper of ropinirole as this can contribute to abnormal movements via dopaminergic activity, defer to neurology/movement specialists -No acute psychiatric safety concerns at this time -Encourage PT/OT involvement given increased weakness Interval History Identifying Information Chelsea Calles is a 59-year-old female with past medical history significant for mild persistent asthma, obstructive sleep apnea, history of sinusitis, chronic heart failure with preserved ejection fraction, moderate mitral regurgitation, obesity, GERD, chronic constipation, history of right ovarian mass, degenerative disc disease, sciatica, tardive dyskinesia, chronic pain syndrome, chronic neck pain, anemia, bipolar 2 disorder, schizoaffective disorder bipolar type, schizoaffective disorder depression type, major depression, generalized anxiety disorder, mild cognitive impairment, generalized weakness, presents with ongoing tremors. Psychiatry consulted for medication recommendations given polypharmacy. Chief Complaint "[]". Subjective Subjective Patient was seen & assessed and interval progress reviewed with Psychiatric liaison. Met with the patient in her room. She was sitting in bed and eating lunch. She had a notable tremor while feeding herself. She said "I am not doing as well today." She said her tremor is worse than it was yesterday, and she is feeling more anxious. "I do not know why, there is nothing really I am worried about." Discussed that she is usually on Austedo, but we do not have it in stock here, so she would need it brought in from home. She said she would ask her sister. She reports her mood is relatively euthymic. Last evening, she thought she heard a voice calling her name. She slept poorly as a result. She says she has been sleeping poorly for the past 2 days. She has not had any recurrence of hearing her name being called, or any other voices or noises that others do not hear. Also denies any visual hallucinations. No irritability. No panic attacks. Physical Exam Psychiatric Orientation: alert, oriented x 3 and cooperative Apperance: appropriately dressed and appropriately groomed Eye Contact: + fair eye contact Motor Behavior: + tremor Speech: normal rate/rhythm/volume of speech Affect: euthymic affect; no depressed affect and no anxious affect Mood: + anxious mood Thought Process: goal directed thought process, linear/logical thought process, clear/coherent thought process, + concrete thought process and thought association intact Thought Content: reality based without delusions; no cognitive distortions Suicidal Thoughts: denies suicidal thoughts, denies suicidal plan and denies suicidal intent Homicidal Thoughts: denies homicidal thoughts, denies homicidal plan and denies homicidal intent Hallucinations: + auditory hallucinations; no visual hallucinations Brief auditory hallucination last evening Cognition: attention grossly intact and language grossly intact Estimated Intelligence: average estimated intelligence and consistent with education level Insight: + fair insight Judgment: + fair judgement Vital Signs (Past 24 Hours) Last Vital Signs Temp 36.8 C 07/07/25 12:24 Pulse 79 07/07/25 12:24 Resp 18 07/07/25 12:24 BP 126/84 07/07/25 12:24 Pulse Ox 94 07/07/25 12:24 O2 Del Method Room Air 07/07/25 12:24 FiO2 21 07/06/25 02:00 Results & Data ([facility]) Laboratory Results Laboratory Results - last 24 hr 07/07/25 06:10 WBC 7.66 RBC 4.38 Hgb 12.3 Hct 38.5 MCV 87.9 MCH 28.1 MCHC 31.9 L RDW Std Deviation 47.8 H RDW Coeff of Bridgett 14.7 H Plt Count 305 MPV 9.2 L Sodium 140 Potassium 3.6 Chloride 106 Carbon Dioxide 28 Anion Gap 6 BUN 15 Creatinine 0.90 Est Cr Clr Drug Dosing 70.4 eGFR 74.57 BUN/Creatinine Ratio 16.7 Glucose 91 Calcium 9.2 Current Inpatient Medications Current Inpatient Medications: Current Inpatient Medications Acetaminophen (Acetaminophen 325 Mg Tab) 650 mg PO Q4H PRN PRN Reason: Pain or Fever Stop: 08/04/25 02:22 Albuterol (Albuterol Hfa 8 Gm Inhaler) 1 puffs INH Q4H PRN PRN Reason: sob/wheezing Stop: 08/04/25 02:26 Aripiprazole (Aripiprazole 15 Mg Tab) 15 mg PO HS SYED Stop: 08/04/25 20:59 Last Admin: 07/06/25 21:55 Dose: 15 mg Ascorbic Acid (Ascorbic Acid 500 Mg Tab) 500 mg PO BID SYED Stop: 08/04/25 08:59 Last Admin: 07/07/25 08:59 Dose: 500 mg Azelastine HCl (Azelastine Hcl 0.1% Nasal 200 Sprays/27,400 Mcg Btl) 2 sprays NA BID SYED Stop: 08/04/25 08:59 Last Admin: 07/07/25 08:58 Dose: 2 sprays Bupropion HCl (Bupropion Sr 150 Mg Tabcr) 150 mg PO QAM SYED Stop: 08/04/25 08:59 Last Admin: 07/05/25 10:01 Dose: 150 mg Bupropion HCl (Bupropion Sr 100 Mg Tabcr) 200 mg PO DAILY@1500 SYED Stop: 08/04/25 14:59 Last Admin: 07/05/25 15:57 Dose: 200 mg Buspirone HCl (Buspirone 5 Mg Tab) 5 mg PO TID SYED Stop: 08/05/25 20:59 Last Admin: 07/07/25 08:59 Dose: 5 mg Cetirizine HCl (Cetirizine Hcl 10 Mg Tablet) 10 mg PO PM SYED Stop: 08/04/25 20:59 Last Admin: 07/06/25 21:55 Dose: 10 mg Docusate Sodium (Docusate Sodium 100 Mg Cap) 100 mg PO QPM SYED Stop: 08/04/25 20:59 Last Admin: 07/06/25 21:56 Dose: Not Given Donepezil HCl (Donepezil Hcl 10 Mg Tab) 10 mg PO DAILY SYED Stop: 08/04/25 08:59 Last Admin: 07/07/25 08:59 Dose: 10 mg Enoxaparin Sodium (Enoxaparin Inj 40 Mg/0.4 Ml Syr) 40 mg SQ Q24H SYED Stop: 08/05/25 05:59 Last Admin: 07/07/25 06:31 Dose: 40 mg Fluoxetine HCl (Fluoxetine Hcl 20 Mg Cap) 80 mg PO QAM SYED Stop: 08/04/25 08:59 Last Admin: 07/07/25 08:59 Dose: 80 mg Fluticasone Propionate (Fluticasone Propionate Na Spr 16 Gm Btl) 2 sprays NA DAILY SYED Stop: 08/06/25 08:59 Last Admin: 07/07/25 08:58 Dose: 2 sprays Fluticasone/Vilanterol (Fluticasone/Vilanterol 200/25mcg 14 Puffs/Inhaler) 1 puffs INH DAILY SYED Stop: 08/04/25 08:59 Last Admin: 07/07/25 08:58 Dose: 1 puffs Gabapentin (Gabapentin 600 Mg Tab) 600 mg PO AMHS SYED Stop: 08/04/25 08:59 Last Admin: 07/07/25 09:00 Dose: 600 mg Gabapentin (Gabapentin 400 Mg Cap) 400 mg PO QDL [facility] Stop: 08/04/25 11:29 Last Admin: 07/06/25 13:39 Dose: 400 mg Hydroxyzine HCl (Hydroxyzine Hcl 25 Mg Tab) 25 mg PO BID [facility] Stop: 08/04/25 08:59 Last Admin: 07/06/25 21:54 Dose: 25 mg Lamotrigine (Lamotrigine 25 Mg Tab) 75 mg PO [facility]; Protocol Stop: 08/04/25 08:59 Last Admin: 07/07/25 08:59 Dose: 75 mg Memantine (Memantine Hcl 10 Mg Tab) 10 mg PO DAILY [facility] Stop: 08/04/25 08:59 Last Admin: 07/07/25 09:00 Dose: 10 mg Miscellaneous (Austedo 36mg--Order Awaiting Action) 1 each N/A QS [facility] Stop: 08/04/25 07:59 Last Admin: 07/05/25 11:23 Dose: Not Given Montelukast Sodium (Montelukast Sodium 10 Mg Tablet) 10 mg PO QAM [facility] Stop: 08/04/25 08:59 Last Admin: 07/07/25 09:00 Dose: 10 mg Nitroglycerin (Nitroglycerin Sl 0.4 Mg/Tab Tab) 0.4 mg SL Q5M PRN PRN Reason: Chest Pain Stop: 08/04/25 02:22 Oxybutynin Chloride (Oxybutynin Chloride 5 Mg Tab) 5 mg PO BID [facility] Stop: 08/04/25 08:59 Last Admin: 07/07/25 09:00 Dose: 5 mg Oxycodone HCl (Oxycodone Hcl Ir 5 Mg Tab (Immediate Release)) 5 mg PO Q6H PRN PRN Reason: Mod-Sev Pain (Scale 4-10) Stop: 07/19/25 17:12 Last Admin: 07/07/25 08:58 Dose: 5 mg Pantoprazole Sodium (Pantoprazole 40 Mg Tab) 40 mg PO QAM [facility] Stop: 08/04/25 08:59 Last Admin: 07/07/25 08:59 Dose: 40 mg Polyethylene Glycol (Polyethylene (Miralax) 17 Gm Pack) 17 gm PO DAILY PRN PRN Reason: Constipation Stop: 08/04/25 02:22 Prazosin HCl (Prazosin Hcl 1 Mg Cap) 1 mg PO HS SYED Stop: 08/04/25 20:59 Prazosin HCl (Prazosin Hcl 1 Mg Cap) 2 mg PO HS SYED Stop: 08/04/25 20:59 Propranolol HCl (Propranolol Hcl 10 Mg Tab) 10 mg PO TID SYED Stop: 08/04/25 17:29 Last Admin: 07/07/25 08:59 Dose: 10 mg Ropinirole HCl (Ropinirole Hcl 0.25 Mg Tablet) 0.25 mg PO BID SYED Stop: 08/04/25 20:59 Last Admin: 07/07/25 09:00 Dose: 0.25 mg Spironolactone (Spironolactone 25 Mg Tab) 25 mg PO QAM SYED Stop: 08/04/25 08:59 Last Admin: 07/07/25 09:00 Dose: 25 mg Topiramate (Topiramate 25 Mg Tab) 75 mg PO HS SYED Stop: 08/04/25 20:59 Last Admin: 07/06/25 21:56 Dose: 75 mg Topiramate (Topiramate 50 Mg Tab) 50 mg PO QAM SYED Stop: 08/04/25 08:59 Last Admin: 07/07/25 09:01 Dose: 50 mg Torsemide (Torsemide 10 Mg Tab) 10 mg PO QAM SYED Stop: 08/04/25 08:59 Last Admin: 07/07/25 09:00 Dose: 10 mg Trazodone HCl (Trazodone Hcl 50 Mg Tab) 50 mg PO HS PRN PRN Reason: Sleep Stop: 08/04/25 02:22 Last Admin: 07/06/25 21:55 Dose: 50 mg
--- NOTE | 2025-07-07 16:14 | Hospitalist Progress Note ---
Date of Service July 07, 2025 Assessment & Plan (1) Tremor, unspecified: Plan: 59-year-old female with past medical history significant for mild persistent asthma, obstructive sleep apnea, history of sinusitis, chronic heart failure with preserved ejection fraction, moderate mitral regurgitation, obesity, GERD, chronic constipation, history of right ovarian mass, degenerative disc disease, sciatica, tardive dyskinesia, chronic pain syndrome, chronic neck pain, anemia, bipolar 2 disorder, schizoaffective disorder bipolar type, schizoaffective disorder depression type, major depression, generalized anxiety disorder, mild cognitive impairment, generalized weakness, presents with ongoing tremors. Patient states she is having tremors for several weeks but last week they got worse. Since last 1 week she is also had some tingliness on the left side of the face. Also some left ear pain. She says she is also having slurred speech for the last couple of weeks. Having headaches. Having back pain. Having right-sided chest pain on and off for 1 to 2 weeks. Has dry cough. Complains of shortness of breath. Lately having some difficulty swallowing. Scratchy throat. No runny nose. Afebrile. Patient states her vision she cannot focus. No nausea or abdominal pain. States last couple of days not micturated much.Normal bowel movements. Ambulates with walker. Lately having difficulty ambulating. Lives with her sister. She was in the [facility] yesterday for similar complaints. Currently having a lot of tremors in the upper extremities and face. Hemodynamics okay. Tremors uncontrolled Likely tardive dyskinesia/antipsychotics Strokelike symptoms--presented with paresthesias left facial, left upper extremity/slurred speech --CT head:No acute intracranial abnormality. -- CTA head :Unremarkable CTA of the brain. --CTA Neck:Unremarkable CTA of the neck without aneurysm, dissection, high-grade stenosis or arterial occlusion. -- Echo: EF 50-55%. Right ventricle cavity size is normal. Right ventricle systolic pressure is normal. Mild mitral regurgitation. Bubble study negative for overt [id number] intracardiac shunt --Lipid panel: Within normal limits, LDL 100 --HbA1c 5.1 Appreciate neurology input Difficult to obtain MRI due to significant tremor PT OT, speech eval Deutetrabenazine on hold due to non-formulary and patient unable to obtain it from home Appreciate psychiatry input: Adjusted medications as recommended by psychiatry PT OT prior to discharge Schizoaffective disorder Bipolar disorder General Anxiety disorder Depression Polypharmacy On multiple antipsychotics/mood stabilizers Appreciate psychiatry input Bupropion, prazosin, Vistaril discontinued Abilify if increased back to 15 mg daily Started on BuSpar 5 mg 3 times daily Decreased Prozac to 60 mg daily Increased propranolol to 20 mg twice a day Donepezil decreased to 5 mg daily--consideration to discontinue eventually if needed Continue to taper down ropinirole Appreciate psychiatry input Needs follow-up with psychiatry on discharge Elevated D-dimer --CTA:No pulmonary emboli --Venous Doppler:No evidence of deep venous thrombus within the bilateral lower extremities. Compression fracture of T8 vertebrae --CT showed Severe T8 compression fracture with 80% loss of vertebral body height and minimal retropulsion along the inferior endplate. The appearance favors a subacute fracture. TLSO brace with activity PT OT, fall precautions Appreciate orthopedics input Hypokalemia Replace and monitor Dysphagia Denies odynophagia Aspiration precautions Speech therapy consulted Will likely need video swallow study as able Seem to be tolerating current diet Chest pain Right-sided and intermittent Likely referred pain from T8 fracture Troponin x 2 negative Monitor Chest pain resolved Chronic heart failure with preserved function Moderate mitral regurgitation Currently no signs of significant volume overload Continue home diuretics Monitor volume status History of mild present asthma No signs of acute exacerbation Continue home inhalers Obstructive sleep apnea CPAP nightly Chronic pain Hold meloxicam Continue gabapentin Tylenol as needed Mild cognitive impairment On memantine and donepezil 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 in 2019 DVT prophylaxis Lovenox SQ CODE STATUS Full code Disposition PT OT prior to discharge Admission and Anticipated Discharge Date Admission Date: July 04, 2025 Subjective Patient is seen and examined at bedside Subjectively feels tremor slightly worse Poor sleep overnight Back pain is controlled No other complaints Review of Systems Review of Systems: All systems reviewed & are unremarkable except as noted in Subjective Physical Exam Physical Exam: Physical Exam: Vitals signs as noted above General Appearance:Overweight, no apparent distress Head: normocephalic, Atraumatic Eyes: normal inspection, EOMI Neck: supple, Trachea midline Respiratory/Chest: Normal breath sounds, CTA, No accessory muscle use Cardiovascular: S1, S2, No murmur Abdomen/GI:Soft, Non tender, Bowel sounds present Extremities/Musculoskeletal:normal inspection, Trace edema Neurologic/Psych:AAOX3, grossly no focal neurological deficits,+ Tremor predominantly in upper extremities Skin: normal color, warm Results & Data Results & Data Vital Signs (Past 12 Hours) Vital Signs Temp Pulse Pulse Resp BP BP Pulse Ox 07/07/25 14:37 70 07/07/25 12:24 36.8 C 79 18 126/84 94 07/07/25 07:38 36.7 C 76 18 137/86 92 07/07/25 07:21 58 L O2 Del Method 07/07/25 14:37 07/07/25 12:24 Room Air 07/07/25 07:38 Room Air 07/07/25 07:21 Laboratory Results Short CBC 07/07/25 Range/Units 06:10 WBC 7.66 (4.8-10.8) K/ul Hgb 12.3 (12.0-16.0) g/dl Hct 38.5 (37.0-47.0) % Plt Count 305 (130-400) K/uL BMP 07/07/25 06:10 Sodium 140 Potassium 3.6 Chloride 106 Carbon Dioxide 28 BUN 15 Creatinine 0.90 Glucose 91 Calcium 9.2
[2025-07-08] MEDS: PROPRANOLOL HCL 20 MG TAB PO SCH (08:17)
[2025-07-08] MEDS: DONEPEZIL HCL 5 MG TAB PO SCH (08:19)
[2025-07-08] MEDS: ACETAMINOPHEN 325 MG TAB PO PRN (11:57)
[2025-07-08] MEDS: MULTIVITAMIN TAB PO SCH (14:28)
--- NOTE | 2025-07-08 14:44 | Fluoroscopy Report ---
FL video swallow CLINICAL HISTORY: assess for aspiration. TECHNIQUE: Video fluoroscopic evaluation of swallowing was performed in the AP and lateral projection s by the speech pathology staff. The patient is fed nectar-thick and thin liquid barium, a barium coa jose miguel wafer, and barium pudding. FLUOROSCOPY TIME: 1 minute 23 seconds. COMPARISON: None. FINDINGS: There was penetration on multiple liquid swallows. No aspiration seen with any barium consi stency. There is a moderate hiatal hernia. There is reduced esophageal motility. Impression: Penetration. No aspiration seen. ACT 112: Negative or not required by law. Electronically signed by: Luis Walton M.D. 07/08/2025 2:42 PM
--- NOTE | 2025-07-08 14:54 | Psychiatric Progress Note ---
Date of Service July 08, 2025 Impression / Recommendations Impression Diagnostically unclear what is causing the tremors and worsening weakness and differential is broad largely driven by neurological conditions. In addition has adjustment disorder with depressed and anxious mood in setting of having to deal with these new debilitating symptoms. Tardive dyskinesia can certainly lead to lip pursing and sometimes lip smacking or rolling movement of the feet or hands but large scale tremors are much more atypical. Sometimes with tardive dyskinesia symptoms worsen with reduce in anti-dopaminergic agents so possible recent dose change in Abilify has worsened TD movements. A: Significant improvement today. Tremor is likely at baseline. Although she reports her mood is "a little down", no significant symptoms are reported or observed. Offered support and encouragement. She is stable from a psychiatric perspective. No medication changes needed at this point and she can follow-up with her outpatient provider for further management of baseline tremors. Overall, I spent a total of 26 minutes with this case including review of chart records, review of Imaging, direct evaluation of the patient at bedside, counseling the patient, discussion with the psychiatric liason during clinical rounds and documentation in the electronic health record. (1) Paresthesia: (2) Dyskinesia, tardive: (3) Tremor, unspecified: (4) Post traumatic stress disorder: (5) Schizoaffective disorder: (6) Adjustment disorder with mixed anxiety and depressed mood: Plan 07/08/25: - no further changes recommended. - rec. f/u with outpatient providers 07/07/25: - decrease donepezil to 5mg. Can d/c after several days if desired. - d/c vistaril to minimize polypharmacy - decrease prozac to 60mg daily - increase propranolol to 20mg BID in the AM and late afternoon, to be held for HR<60 or SBP<100. 07/06/25: - Good improvement already notable, but not back to baseline. - Recommend starting BuSpar 5 mg 3 times daily, just be scheduled with the propranolol. - Continue with other medication changes that were initiated yesterday, and give more time. - Will check in again tomorrow to ensure that improvement is continuing. 07/05/25: -First rule out potential serious causes of her abnormal movements. If no acute findings then: -Get EKG to ensure QTc is <500ms -Continue psychiatric medications as ordered if QTc is stable with following suggestions for changes: * Discontinue Wellbutrin SR as rarely this can contribute to tremors * Discontinue prazosin and consider trial of propranolol 10mg TID in place of this as sometimes this can help with resting tremors until she can be evaluated by movement disorder specialist * Consider increasing abilify back to 15mg daily, if tremors improve with this adjustment would suggest some component of TD * Consider taper of ropinirole as this can contribute to abnormal movements via dopaminergic activity, defer to neurology/movement specialists -No acute psychiatric safety concerns at this time -Encourage PT/OT involvement given increased weakness Interval History Identifying Information Chelsea Calles is a 59-year-old female with past medical history significant for mild persistent asthma, obstructive sleep apnea, history of sinusitis, chronic heart failure with preserved ejection fraction, moderate mitral regurgitation, obesity, GERD, chronic constipation, history of right ovarian mass, degenerative disc disease, sciatica, tardive dyskinesia, chronic pain syndrome, chronic neck pain, anemia, bipolar 2 disorder, schizoaffective disorder bipolar type, schizoaffective disorder depression type, major depression, generalized anxiety disorder, mild cognitive impairment, generalized weakness, presents with ongoing tremors. Psychiatry consulted for medication recommendations given polypharmacy. Chief Complaint "[]". Subjective Subjective Patient was seen & assessed and interval progress reviewed with psychiatric liaison. Patient reports tremor has improved. Psych liaison did see her prior to the swallow study, patient reported high anxiety and had an exaggerated tremor at that time. When I met with her later in the evening, after her testing was c ompleted, I she had a very mild resting tremor, which is likely her baseline. Today she reports her mood is "a little down." She says she felt like she was a little off last month, and may be crashing. However she does not describe any symptoms of depression. She says "I am not interested in anything", and when I pointed out that she is in a hospital without access to things that interest her , she said that was probably get. She misses her cats. No suicidal thoughts hopelessness or passive wish. She also denies any auditory visual hallucinations. No paranoia or delusions noted. Physical Exam Psychiatric Orientation: alert, oriented x 3 and cooperative Apperance: appropriately dressed and appropriately groomed Eye Contact: + fair eye contact Motor Behavior: + tremor Speech: normal rate/rhythm/volume of speech Affect: euthymic affect; no depressed affect and no anxious affect "a little down" Thought Process: goal directed thought process, linear/logical thought process, clear/coherent thought process, + concrete thought process and thought association intact Thought Content: reality based without delusions; no cognitive distortions Suicidal Thoughts: denies suicidal thoughts, denies suicidal plan and denies suicidal intent Homicidal Thoughts: denies homicidal thoughts, denies homicidal plan and denies homicidal intent Hallucinations: no visual hallucinations Cognition: attention grossly intact and language grossly intact Estimated Intelligence: average estimated intelligence and consistent with education level Insight: + fair insight Judgment: + fair judgement Vital Signs (Past 24 Hours) Last Vital Signs Temp 36.4 C L 07/08/25 07:55 Pulse 68 07/08/25 07:55 Resp 20 07/08/25 07:55 BP 130/83 07/08/25 07:55 Pulse Ox 93 07/08/25 07:55 O2 Del Method Room Air 07/08/25 07:55 FiO2 21 07/06/25 02:00 Results & Data ([facility]) Current Inpatient Medications Current Inpatient Medications: Current Inpatient Medications Acetaminophen (Acetaminophen 325 Mg Tab) 650 mg PO Q4H PRN PRN Reason: Pain or Fever Stop: 08/04/25 02:22 Last Admin: 07/08/25 11:57 Dose: 650 mg Albuterol (Albuterol Hfa 8 Gm Inhaler) 1 puffs INH Q4H PRN PRN Reason: sob/wheezing Stop: 08/04/25 02:26 Aripiprazole (Aripiprazole 15 Mg Tab) 15 mg PO HS [facility] Stop: 08/04/25 20:59 Last Admin: 07/07/25 21:39 Dose: 15 mg Ascorbic Acid (Ascorbic Acid 500 Mg Tab) 500 mg PO BID [facility] Stop: 08/04/25 08:59 Last Admin: 07/08/25 08:16 Dose: 500 mg Azelastine HCl (Azelastine Hcl 0.1% Nasal 200 Sprays/27,400 Mcg Btl) 2 sprays NA BID [facility] Stop: 08/04/25 08:59 Last Admin: 07/08/25 08:18 Dose: 2 sprays Buspirone HCl (Buspirone 5 Mg Tab) 5 mg PO TID [facility] Stop: 08/05/25 20:59 Last Admin: 07/08/25 13:24 Dose: 5 mg Cetirizine HCl (Cetirizine Hcl 10 Mg Tablet) 10 mg PO PM [facility] Stop: 08/04/25 20:59 Last Admin: 07/07/25 21:41 Dose: 10 mg Docusate Sodium (Docusate Sodium 100 Mg Cap) 100 mg PO QPM [facility] Stop: 08/04/25 20:59 Last Admin: 07/07/25 21:39 Dose: 100 mg Donepezil HCl (Donepezil Hcl 5 Mg Tab) 5 mg PO DAILY [facility] Stop: 08/07/25 08:59 Last Admin: 07/08/25 08:19 Dose: 5 mg Enoxaparin Sodium (Enoxaparin Inj 40 Mg/0.4 Ml Syr) 40 mg SQ Q24H [facility] Stop: 08/05/25 05:59 Last Admin: 07/08/25 05:28 Dose: 40 mg Fluoxetine HCl (Fluoxetine Hcl 20 Mg Cap) 60 mg PO QAM [facility] Stop: 08/07/25 08:59 Last Admin: 07/08/25 08:14 Dose: 60 mg Fluticasone Propionate (Fluticasone Propionate Na Spr 16 Gm Btl) 2 sprays NA DAILY [facility] Stop: 08/06/25 08:59 Last Admin: 07/08/25 08:18 Dose: 2 sprays Fluticasone/Vilanterol (Fluticasone/Vilanterol 200/25mcg 14 Puffs/Inhaler) 1 puffs INH DAILY [facility] Stop: 08/04/25 08:59 Last Admin: 07/08/25 08:19 Dose: 1 puffs Gabapentin (Gabapentin 600 Mg Tab) 600 mg PO AMHS [facility] Stop: 08/04/25 08:59 Last Admin: 07/08/25 08:14 Dose: 600 mg Gabapentin (Gabapentin 400 Mg Cap) 400 mg PO QDL [facility] Stop: 08/04/25 11:29 Last Admin: 07/08/25 11:58 Dose: 400 mg Lamotrigine (Lamotrigine 25 Mg Tab) 75 mg PO AMHS [facility]; Protocol Stop: 08/04/25 08:59 Last Admin: 07/08/25 08:15 Dose: 75 mg Memantine (Memantine Hcl 10 Mg Tab) 10 mg PO DAILY [facility] Stop: 08/04/25 08:59 Last Admin: 07/08/25 08:16 Dose: 10 mg Miscellaneous (Austedo 36mg--Order Awaiting Action) 1 each N/A QS [facility] Stop: 08/04/25 07:59 Last Admin: 07/05/25 11:23 Dose: Not Given Montelukast Sodium (Montelukast Sodium 10 Mg Tablet) 10 mg PO QAM [facility] Stop: 08/04/25 08:59 Last Admin: 07/08/25 08:15 Dose: 10 mg Multivitamins (Multivitamin Tab) 1 tab PO QAM [facility] Stop: 08/07/25 13:59 Last Admin: 07/08/25 14:28 Dose: 1 tab Nitroglycerin (Nitroglycerin Sl 0.4 Mg/Tab Tab) 0.4 mg SL Q5M PRN PRN Reason: Chest Pain Stop: 08/04/25 02:22 Oxybutynin Chloride (Oxybutynin Chloride 5 Mg Tab) 5 mg PO BID [facility] Stop: 08/04/25 08:59 Last Admin: 07/08/25 08:15 Dose: 5 mg Oxycodone HCl (Oxycodone Hcl Ir 5 Mg Tab (Immediate Release)) 5 mg PO Q6H PRN PRN Reason: Mod-Sev Pain (Scale 4-10) Stop: 07/19/25 17:12 Last Admin: 07/08/25 14:28 Dose: 5 mg Pantoprazole Sodium (Pantoprazole 40 Mg Tab) 40 mg PO QAM [facility] Stop: 08/04/25 08:59 Last Admin: 07/08/25 08:16 Dose: 40 mg Polyethylene Glycol (Polyethylene (Miralax) 17 Gm Pack) 17 gm PO DAILY PRN PRN Reason: Constipation Stop: 08/04/25 02:22 Propranolol HCl (Propranolol Hcl 20 Mg Tab) 20 mg PO BID@0800,1400 [facility] Stop: 08/07/25 07:59 Last Admin: 07/08/25 13:24 Dose: 20 mg Ropinirole HCl (Ropinirole Hcl 0.25 Mg Tablet) 0.25 mg PO BID [facility] Stop: 08/04/25 20:59 Last Admin: 07/08/25 08:15 Dose: 0.25 mg Spironolactone (Spironolactone 25 Mg Tab) 25 mg PO QAM [facility] Stop: 08/04/25 08:59 Last Admin: 07/08/25 08:17 Dose: 25 mg Topiramate (Topiramate 25 Mg Tab) 75 mg PO HS [facility] Stop: 08/04/25 20:59 Last Admin: 07/07/25 21:43 Dose: 75 mg Topiramate (Topiramate 50 Mg Tab) 50 mg PO QAM [facility] Stop: 08/04/25 08:59 Last Admin: 07/08/25 08:17 Dose: 50 mg Torsemide (Torsemide 10 Mg Tab) 10 mg PO QAM [facility] Stop: 08/04/25 08:59 Last Admin: 07/08/25 08:15 Dose: 10 mg Trazodone HCl (Trazodone Hcl 50 Mg Tab) 50 mg PO HS PRN PRN Reason: Sleep Stop: 08/04/25 02:22 Last Admin: 07/06/25 21:55 Dose: 50 mg
--- NOTE | 2025-07-08 15:46 | Hospitalist Progress Note ---
Date of Service July 08, 2025 Assessment & Plan (1) Tremor, unspecified: Plan: 59-year-old female with past medical history significant for mild persistent asthma, obstructive sleep apnea, history of sinusitis, chronic heart failure with preserved ejection fraction, moderate mitral regurgitation, obesity, GERD, chronic constipation, history of right ovarian mass, degenerative disc disease, sciatica, tardive dyskinesia, chronic pain syndrome, chronic neck pain, anemia, bipolar 2 disorder, schizoaffective disorder bipolar type, schizoaffective disorder depression type, major depression, generalized anxiety disorder, mild cognitive impairment, generalized weakness, presents with ongoing tremors. Patient states she is having tremors for several weeks but last week they got worse. Since last 1 week she is also had some tingliness on the left side of the face. Also some left ear pain. She says she is also having slurred speech for the last couple of weeks. Having headaches. Having back pain. Having right-sided chest pain on and off for 1 to 2 weeks. Has dry cough. Complains of shortness of breath. Lately having some difficulty swallowing. Scratchy throat. No runny nose. Afebrile. Patient states her vision she cannot focus. No nausea or abdominal pain. States last couple of days not micturated much.Normal bowel movements. Ambulates with walker. Lately having difficulty ambulating. Lives with her sister. She was in the [facility] yesterday for similar complaints. Currently having a lot of tremors in the upper extremities and face. Hemodynamics okay. Tremors uncontrolled Likely tardive dyskinesia/antipsychotics Strokelike symptoms--presented with paresthesias left facial, left upper extremity/slurred speech --CT head:No acute intracranial abnormality. -- CTA head :Unremarkable CTA of the brain. --CTA Neck:Unremarkable CTA of the neck without aneurysm, dissection, high-grade stenosis or arterial occlusion. -- Echo: EF 50-55%. Right ventricle cavity size is normal. Right ventricle systolic pressure is normal. Mild mitral regurgitation. Bubble study negative for overt [id number] intracardiac shunt --Lipid panel: Within normal limits, LDL 100 --HbA1c 5.1 Appreciate neurology input Difficult to obtain MRI due to significant tremor PT OT, speech eval Deutetrabenazine on hold due to non-formulary and patient unable to obtain it from home Appreciate psychiatry input: Adjusted medications as recommended by psychiatry Needs follow-up with psychiatry on discharge Plan to discharge to rehab facility when arranged Schizoaffective disorder Bipolar disorder General Anxiety disorder Depression Polypharmacy On multiple antipsychotics/mood stabilizers Appreciate psychiatry input Bupropion, prazosin, Vistaril discontinued Abilify if increased back to 15 mg daily Started on BuSpar 5 mg 3 times daily Decreased Prozac to 60 mg daily Increased propranolol to 20 mg twice a day Donepezil decreased to 5 mg daily--consideration to discontinue eventually if needed Continue to taper down ropinirole Appreciate psychiatry input Needs follow-up with psychiatry on discharge Elevated D-dimer --CTA:No pulmonary emboli --Venous Doppler:No evidence of deep venous thrombus within the bilateral lower extremities. Compression fracture of T8 vertebrae --CT showed Severe T8 compression fracture with 80% loss of vertebral body height and minimal retropulsion along the inferior endplate. The appearance favors a subacute fracture. TLSO brace with activity PT OT, fall precautions Appreciate orthopedics input Hypokalemia Replace and monitor Dysphagia Denies odynophagia Video swallow study:Penetration. No aspiration seen. Aspiration precautions Appreciate speech therapy recommendations Tolerating current diet Chest pain Right-sided and intermittent Likely referred pain from T8 fracture Troponin x 2 negative Monitor Chest pain resolved Chronic heart failure with preserved function Moderate mitral regurgitation Currently no signs of significant volume overload Continue home diuretics Monitor volume status History of mild present asthma No signs of acute exacerbation Continue home inhalers Obstructive sleep apnea CPAP nightly Chronic pain Hold meloxicam Continue gabapentin Tylenol as needed Mild cognitive impairment On memantine and donepezil 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 in 2019 DVT prophylaxis Lovenox SQ CODE STATUS Full code Disposition Plan to discharge to rehab facility when accepted Admission and Anticipated Discharge Date Admission Date: July 04, 2025 Subjective Patient is seen and examined at bedside Had video swallow study earlier today Feels a lot better today Tremor much improved Back pain is controlled Review of Systems Review of Systems: All systems reviewed & are unremarkable except as noted in Subjective Physical Exam Physical Exam: Physical Exam: Vitals signs as noted above General Appearance:Overweight, no apparent distress Head: normocephalic, Atraumatic Eyes: normal inspection, EOMI Neck: supple, Trachea midline Respiratory/Chest: Normal breath sounds, CTA, No accessory muscle use Cardiovascular: S1, S2, No murmur Abdomen/GI:Soft, Non tender, Bowel sounds present Extremities/Musculoskeletal:normal inspection, Trace edema Neurologic/Psych:AAOX3, grossly no focal neurological deficits,+ Tremor predominantly in upper extremities Skin: normal color, warm Results & Data Results & Data Vital Signs (Past 12 Hours) Vital Signs Temp Pulse Pulse Resp BP BP Pulse Ox 07/08/25 15:33 36.7 C 62 20 118/78 92 07/08/25 15:08 66 07/08/25 07:55 36.4 C L 68 20 130/83 93 07/08/25 07:00 77 O2 Del Method 07/08/25 15:33 Room Air 07/08/25 15:08 07/08/25 07:55 Room Air 07/08/25 07:00
--- NOTE | 2025-07-09 14:10 | Hospitalist Progress Note ---
Date of Service July 09, 2025 Assessment & Plan (1) Tremor, unspecified: Plan: 59-year-old female with past medical history significant for mild persistent asthma, obstructive sleep apnea, history of sinusitis, chronic heart failure with preserved ejection fraction, moderate mitral regurgitation, obesity, GERD, chronic constipation, history of right ovarian mass, degenerative disc disease, sciatica, tardive dyskinesia, chronic pain syndrome, chronic neck pain, anemia, bipolar 2 disorder, schizoaffective disorder bipolar type, schizoaffective disorder depression type, major depression, generalized anxiety disorder, mild cognitive impairment, generalized weakness, presents with ongoing tremors. Patient states she is having tremors for several weeks but last week they got worse. Since last 1 week she is also had some tingliness on the left side of the face. Also some left ear pain. She says she is also having slurred speech for the last couple of weeks. Having headaches. Having back pain. Having right-sided chest pain on and off for 1 to 2 weeks. Has dry cough. Complains of shortness of breath. Lately having some difficulty swallowing. Scratchy throat. No runny nose. Afebrile. Patient states her vision she cannot focus. No nausea or abdominal pain. States last couple of days not micturated much.Normal bowel movements. Ambulates with walker. Lately having difficulty ambulating. Lives with her sister. She was in the [facility] yesterday for similar complaints. Currently having a lot of tremors in the upper extremities and face. Hemodynamics okay. Tremors uncontrolled Likely tardive dyskinesia/antipsychotics Strokelike symptoms--presented with paresthesias left facial, left upper extremity/slurred speech --CT head:No acute intracranial abnormality. -- CTA head :Unremarkable CTA of the brain. --CTA Neck:Unremarkable CTA of the neck without aneurysm, dissection, high-grade stenosis or arterial occlusion. -- Echo: EF 50-55%. Right ventricle cavity size is normal. Right ventricle systolic pressure is normal. Mild mitral regurgitation. Bubble study negative for overt [id number] intracardiac shunt --Lipid panel: Within normal limits, LDL 100 --HbA1c 5.1 Appreciate neurology input Difficult to obtain MRI due to significant tremor PT OT, speech eval Deutetrabenazine on hold due to non-formulary and patient unable to obtain it from home Appreciate psychiatry input: Adjusted medications as recommended by psychiatry Needs follow-up with psychiatry on discharge Waiting for rehab placement Schizoaffective disorder Bipolar disorder General Anxiety disorder Depression Polypharmacy On multiple antipsychotics/mood stabilizers Appreciate psychiatry input Bupropion, prazosin, Vistaril discontinued Abilify if increased back to 15 mg daily Started on BuSpar 5 mg 3 times daily Decreased Prozac to 60 mg daily Increased propranolol to 20 mg twice a day Donepezil decreased to 5 mg daily--consideration to discontinue eventually if needed Continue to taper down ropinirole Appreciate psychiatry input Needs follow-up with psychiatry on discharge Continue current management Elevated D-dimer --CTA:No pulmonary emboli --Venous Doppler:No evidence of deep venous thrombus within the bilateral lower extremities. Compression fracture of T8 vertebrae --CT showed Severe T8 compression fracture with 80% loss of vertebral body height and minimal retropulsion along the inferior endplate. The appearance favors a subacute fracture. TLSO brace with activity PT OT, fall precautions Appreciate orthopedics input Needs follow-up with orthopedics on discharge Hypokalemia Replace and monitor Dysphagia Denies odynophagia Video swallow study:Penetration. No aspiration seen. Aspiration precautions Appreciate speech therapy recommendations Tolerating current diet Chest pain Right-sided and intermittent Likely referred pain from T8 fracture Troponin x 2 negative Monitor Chest pain resolved Chronic heart failure with preserved function Moderate mitral regurgitation Currently no signs of significant volume overload Continue home diuretics Monitor volume status History of mild present asthma No signs of acute exacerbation Continue home inhalers Obstructive sleep apnea CPAP nightly Chronic pain Hold meloxicam Continue gabapentin Tylenol as needed Mild cognitive impairment On memantine and donepezil 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 in 2019 DVT prophylaxis Lovenox SQ CODE STATUS Full code Disposition Waiting for rehab placement Admission and Anticipated Discharge Date Admission Date: July 04, 2025 Subjective Patient is seen and examined at bedside Offers no new complaints Sitting in chair comfortably during my encounter Tolerating current diet with no issues Tremor improved Waiting for rehab placement Review of Systems Review of Systems: All systems reviewed & are unremarkable except as noted in Subjective Physical Exam Physical Exam: Physical Exam: Vitals signs as noted above General Appearance:Overweight, no apparent distress Head: normocephalic, Atraumatic Eyes: normal inspection, EOMI Neck: supple, Trachea midline Respiratory/Chest: Normal breath sounds, CTA, No accessory muscle use Cardiovascular: S1, S2, No murmur Abdomen/GI:Soft, Non tender, Bowel sounds present Extremities/Musculoskeletal:normal inspection, Trace edema Neurologic/Psych:AAOX3, grossly no focal neurological deficits,+ Tremor predominantly in upper extremities Skin: normal color, warm Results & Data Results & Data Vital Signs (Past 12 Hours) Vital Signs Temp Pulse Pulse Resp BP BP Pulse Ox 07/09/25 10:17 36.8 C 75 16 131/85 92 07/09/25 07:45 36.5 C 88 16 147/90 H 92 07/09/25 07:31 77 07/09/25 04:30 36.6 C 82 18 118/81 95 07/09/25 02:45 64 14 95 O2 Del Method 07/09/25 10:17 Room Air 07/09/25 07:45 Room Air 07/09/25 07:31 07/09/25 04:30 CPAP 07/09/25 02:45
[2025-07-10 07:52] LABS: Anion Gap 8.0 (3-11); Blood Urea Nitrogen 21.0 mg/dl (6-23); Calcium 9.4 mg/dl (8.6-10.3); Carbon Dioxide 26.0 mmol/L (21-32); Chloride 106.0 mmol/L (98-107); Creatinine Clr Calc Pharmacy 72.0 ml/min; Glucose 88.0 mg/dl (70-99(Fasting)); Potassium 3.6 mmol/L (3.5-5.1); Sodium 140.0 mmol/L (136-145)
--- NOTE | 2025-07-10 12:23 | Hospitalist Progress Note ---
Date of Service July 10, 2025 Assessment & Plan (1) Tremor, unspecified: Plan: 59-year-old female with past medical history significant for mild persistent asthma, obstructive sleep apnea, history of sinusitis, chronic heart failure with preserved ejection fraction, moderate mitral regurgitation, obesity, GERD, chronic constipation, history of right ovarian mass, degenerative disc disease, sciatica, tardive dyskinesia, chronic pain syndrome, chronic neck pain, anemia, bipolar 2 disorder, schizoaffective disorder bipolar type, schizoaffective disorder depression type, major depression, generalized anxiety disorder, mild cognitive impairment, generalized weakness, presents with ongoing tremors. Patient states she is having tremors for several weeks but last week they got worse. Tremors uncontrolled Likely tardive dyskinesia/antipsychotics Strokelike symptoms--presented with paresthesias left facial, left upper extremity/slurred speech --CT head:No acute intracranial abnormality. -- CTA head :Unremarkable CTA of the brain. --CTA Neck:Unremarkable CTA of the neck without aneurysm, dissection, high-grade stenosis or arterial occlusion. -- Echo: EF 50-55%. Right ventricle cavity size is normal. Right ventricle systolic pressure is normal. Mild mitral regurgitation. Bubble study negative for overt [id number] intracardiac shunt --Lipid panel: Within normal limits, LDL 100 --HbA1c 5.1 Appreciate psychiatry input: Adjusted medications as recommended by psychiatry Needs follow-up with psychiatry on discharge Peer to peer offered; unable to carry to hold of the medical director/head team physician Schizoaffective disorder Bipolar disorder General Anxiety disorder Depression Polypharmacy On multiple antipsychotics/mood stabilizers Appreciate psychiatry input Bupropion, prazosin, Vistaril discontinued Abilify if increased back to 15 mg daily Started on BuSpar 5 mg 3 times daily Decreased Prozac to 60 mg daily Increased propranolol to 20 mg twice a day Donepezil decreased to 5 mg daily--consideration to discontinue eventually if needed Continue to taper down ropinirole Needs follow-up with psychiatry on discharge Continue current management Elevated D-dimer --CTA:No pulmonary emboli --Venous Doppler:No evidence of deep venous thrombus within the bilateral lower extremities. Compression fracture of T8 vertebrae --CT showed Severe T8 compression fracture with 80% loss of vertebral body height and minimal retropulsion along the inferior endplate. The appearance favors a subacute fracture. TLSO brace with activity PT OT, fall precautions Appreciate orthopedics input Needs follow-up with orthopedics on discharge Hypokalemia Replace and monitor Dysphagia Denies odynophagia Video swallow study:Penetration. No aspiration seen. Aspiration precautions Appreciate speech therapy recommendations Tolerating current diet Chest pain Right-sided and intermittent Likely referred pain from T8 fracture Troponin x 2 negative Monitor Chest pain resolved Chronic heart failure with preserved function Moderate mitral regurgitation Currently no signs of significant volume overload Continue home diuretics Monitor volume status History of mild present asthma No signs of acute exacerbation Continue home inhalers Obstructive sleep apnea CPAP nightly Chronic pain Hold meloxicam Continue gabapentin Tylenol as needed Mild cognitive impairment On memantine and donepezil 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 in 2019 DVT prophylaxis Lovenox SQ CODE STATUS Full code Disposition Waiting for rehab placement ; Attempted to call peer to peer; unable to get hold of the care support representative Admission and Anticipated Discharge Date Admission Date: July 04, 2025 Subjective Patient seen and examined at bedside. She is lying in the bed comfortably. Reports feeling slightly anxious. No significant events overnight Review of Systems Review of Systems: All systems reviewed & are unremarkable except as noted in Subjective Physical Exam Physical Exam: Physical Exam: Vitals signs as noted above General Appearance:Overweight, no apparent distress Head: normocephalic, Atraumatic Eyes: normal inspection, EOMI Neck: supple, Trachea midline Respiratory/Chest: Normal breath sounds, CTA, No accessory muscle use Cardiovascular: S1, S2, No murmur Abdomen/GI:Soft, Non tender, Bowel sounds present Extremities/Musculoskeletal:normal inspection, Trace edema Neurologic/Psych:AAOX3, grossly no focal neurological deficits,+ Tremor predominantly in upper extremities Skin: normal color, warm Results & Data Results & Data Vital Signs (Past 12 Hours) Vital Signs Temp Pulse Resp BP Pulse Ox O2 Del Method FiO2 07/10/25 07:54 36.7 C 72 16 128/83 93 Room Air 07/10/25 03:53 13 94 21
[2025-07-11 07:29] VITALS: PULSE 75; RESP 16
--- NOTE | 2025-07-11 12:00 | Discharge Summary ---
Date of Service July 11, 2025 Admission HPI Per Admitting Provider 59-year-old female with past medical history significant for mild persistent asthma, obstructive sleep apnea, history of sinusitis, chronic heart failure with preserved ejection fraction, moderate mitral regurgitation, obesity, GERD, chronic constipation, history of right ovarian mass, degenerative disc disease, sciatica, tardive dyskinesia, chronic pain syndrome, chronic neck pain, anemia, bipolar 2 disorder, schizoaffective disorder bipolar type, schizoaffective disorder depression type, major depression, generalized anxiety disorder, mild cognitive impairment, generalized weakness, presents with ongoing tremors. Patient states she is having tremors for several weeks but last week they got worse. Since last 1 week she is also had some tingliness on the left side of the face. Also some left ear pain. She says she is also having slurred speech for the last couple of weeks. Having headaches. Having back pain. Having right-sided chest pain on and off for 1 to 2 weeks. Has dry cough. Complains of shortness of breath. Lately having some difficulty swallowing. Scratchy throat. No runny nose. Afebrile. Patient states her vision she cannot focus. No nausea or abdominal pain. States last couple of days not micturated much.Normal bowel movements. Ambulates with walker. Lately having difficulty ambulating. Lives with her sister. She was in the [facility] for similar complaints. Currently having a lot of tremors in the upper extremities and face. Hemodynamics okay. Past medical history. As mentioned above Past surgical history. Left carpal tunnel surgery. Bilateral knee replacements. Injection lumbosacral spine. Laparoscopic cholecystectomy. Laparoscopic oophorectomy bilateral. Repair nasal septal defect. Treatment of ectopic . Social history. No smoking. No alcohol use. No drug use. Family history. Sister has allergies. Sister has pacemaker. Sister has asthma. Maternal aunt had cancer. Paternal aunt had cancer. Brother has diabetes. Brother has liver disease. Mother had pancreatic cancer. Father had prostate cancer. Admission Exam Per Admitting Provider General- Not in acute distress. Having tremors Head- atraumatic Eyes- PERRL. Ear; No erythema or drainage seen ENT- oropharynx clear Neck- supple, no JVD. Lungs- clear to auscultation no wheezing or crackles Heart- regular rhythm; no murmur, no gallop. Abdomen- normal bowel sounds, soft, nontender, no distension Extremities- b/l lower extremity edema present, no erythema seen Neuro- alert, Oriented x 3. Having significant tremors in upper extremities PERRL no facial palsy; no dysarthria; motor 5/5 upper extremity 2-3/5 lower extremity ; no pronator drift, co ordination of movements normal sensations intact Principal Diagnosis Tremors uncontrolled Likely tardive dyskinesia/antipsychotics Strokelike symptoms--presented with paresthesias left facial, left upper extremity/slurred speec Discharge Exam Physical Exam: Vitals signs as noted above General Appearance:Overweight, no apparent distress Head: normocephalic, Atraumatic Eyes: normal inspection, EOMI Neck: supple, Trachea midline Respiratory/Chest: Normal breath sounds, CTA, No accessory muscle use Cardiovascular: S1, S2, No murmur Abdomen/GI:Soft, Non tender, Bowel sounds present Extremities/Musculoskeletal:normal inspection, Trace edema Neurologic/Psych:AAOX3, grossly no focal neurological deficits,+ Tremor predominantly in upper extremities Skin: normal color, warm Discharge Data Allergies Allergy/AdvReac Type Severity Reaction Status Date / Time valbenazine [From Ingrezza] Allergy Severe SHORT OF Verified 07/04/25 22:41 BREATH/CHEST PAIN, TIGHTNESS amoxicillin [From Augmentin] AdvReac Intermediate NAUSEA/VOMI Verified 07/04/25 22:08 TING clavulanic acid AdvReac Intermediate Nausea Verified 07/04/25 22:08 [From Augmentin] SURGICAL ADELE Allergy Intermediate REACTION Uncoded 07/04/25 22:08 AFTER KNEE SURGERY TO ADELE USED Consultations 07/04/25 22:46 ED Decision to Admit Stat 07/05/25 07:53 Consult Psychiatry Routine 07/05/25 08:00 Consult Neurology Routine 07/05/25 12:18 Consult Orthopedic Spine Surgery Routine Ordered Studies 07/04/25 21:04 CT head/brain wo con Stat 07/05/25 02:23 US venous doppler LE BI Routine 07/05/25 04:17 CT angio chest PE protocol Stat 07/05/25 13:04 MRI Thoracic [MR thoracic spine wo con] Routine 07/05/25 14:16 CTA head w con [CT angio head w con] Routine CTA neck with con [CT angio neck with con] Routine 11/03/25 13:30 FL video swallow Routine Hospital Course (1) Tremor, unspecified: 59-year-old female with past medical history significant for mild persistent asthma, obstructive sleep apnea, history of sinusitis, chronic heart failure with preserved ejection fraction, moderate mitral regurgitation, obesity, GERD, chronic constipation, history of right ovarian mass, degenerative disc disease, sciatica, tardive dyskinesia, chronic pain syndrome, chronic neck pain, anemia, bipolar 2 disorder, schizoaffective disorder bipolar type, schizoaffective disorder depression type, major depression, generalized anxiety disorder, mild cognitive impairment, generalized weakness, presents with ongoing tremors. Patient states she is having tremors for several weeks but last week they got worse. Tremors uncontrolled Likely tardive dyskinesia/antipsychotics Strokelike symptoms--presented with paresthesias left facial, left upper extremity/slurred speech --CT head:No acute intracranial abnormality. -- CTA head :Unremarkable CTA of the brain. --CTA Neck:Unremarkable CTA of the neck without aneurysm, dissection, high-grade stenosis or arterial occlusion. -- Echo: EF 50-55%. Right ventricle cavity size is normal. Right ventricle systolic pressure is normal. Mild mitral regurgitation. Bubble study negative for overt puxto-af-meis intracardiac shunt --Lipid panel: Within normal limits, LDL 100 --HbA1c 5.1 Patient was admitted to medical floor; w psychiatry was consulted for comanagement. Following medication adjustment was done; Bupropion, prazosin, Vistaril discontinued Abilify increased back to 15 mg daily Started on BuSpar 5 mg 3 times daily Decreased Prozac to 60 mg daily Increased propranolol to 20 mg twice a day Donepezil decreased to 5 mg daily--consideration to discontinue eventually if needed Continue to taper down ropinirole Patient reported improvement in tremors during hospitalization. She was discharged home with outpatient PT OT Please note the above document was generated using voice recognition software. It may contain grammatical, syntax or spelling errors. Any formal questions or concerns about the content, text or information contained within the body of this dictation should be directly addressed to the provider for clarification Total Time Total Time Spent Total Time Spent (In Minutes): 45 Total Time Includes: Examination of the Patient, Discharge Planning, Medication Reconciliation, Communication With Other Providers and Other Discharge Plan Discharge Items Patient Disposition: Home - Self-Care Reason For Visit: TREMORS, CHEST PAIN Discharge Diagnosis: Tremors Condition on Discharge: Fair Activity: Resume your previous activity Non-emergency contact: Primary Care Provider Call non-emergency contact if: you have any medication questions and your symptoms worsen Follow-up/Referrals: Christina Govea DO [Primary Care Provider] - Diet: Regular Addtl Attending Provider Instructions: You were admitted to the hospital due to tremors. You were evaluated by psychiatry during the hospitalization. They recommend following medication changes; Stop taking Wellbutrin/bupropion. Stop taking prazosin Stop taking Vistaril/hydroxyzine Decreased dose of Prozac/fluoxetine to 60 mg once a day from 80 mg once a day. A new prescription has been sent to the pharmacy. Decreased dose of donepezil to 5 mg once a day from 10 mg once a day. Cut the pill in half. Decrease ropinirole to twice a day from 3 times a day Increase dose of Abilify/aripiprazole from 10 mg once a day to 15 mg once a day Take buspirone 5 mg 3 types a day. Take propranolol 20 mg in the morning at around 8 and lunchtime around 2 PM. Please do not take it at night as it can interfere with the sleep. Take this with buspirone Pending Studies at Discharge: No Stand-Alone Forms: [facility] [employer], Smoking Cessation Medications and DC Order Prescriptions: New buspirone 5 mg Tablet 5 mg PO TID Qty: 90 0RF ropinirole 0.25 mg Tablet 0.25 mg PO BID Qty: 60 0RF propranolol 20 mg Tablet 20 mg PO BID@0800,1400 Qty: 60 0RF aripiprazole [Abilify] 15 mg Tablet 15 mg PO HS Qty: 30 0RF fluoxetine 60 mg tablet 60 mg PO DAILY Qty: 30 0RF Continued gabapentin 400 mg Capsule 400 mg PO QDL ascorbate calcium (vitamin C) 500 mg tablet 500 mg PO BID montelukast [Singulair] 10 mg tablet 10 mg PO QAM fluticasone propionate [Flonase Allergy Relief] 50 mcg/actuation s pray,suspension 2 sprays INTNAS QAM Rx Instructions: administer into each nostril albuterol sulfate 90 mcg/actuation aerosol powdr breath activated 1 puffs INH Q4H PRN (Reason: sob/wheezing) pantoprazole 40 mg Tablet,Delayed Release (Dr/Ec) 40 mg PO QAM oxybutynin chloride 5 mg Tablet 5 mg PO BID trazodone 50 mg Tablet 50 mg PO HS PRN (Reason: Sleep) ondansetron HCl 4 mg Tablet 4 mg PO Q8H PRN (Reason: NAUSEA/VOMITING) torsemide 10 mg Tablet 10 mg PO QAM spironolactone 25 mg tablet 25 mg PO QAM lamotrigine [Lamictal] 25 mg Tablet 75 mg PO AMHS meloxicam 7.5 mg Tablet 7.5 mg PO BID docusate sodium 100 mg Capsule 100 mg PO QPM azelastine 137 mcg (0.1 %) spray,non-aerosol 2 spray INTRANASAL BID topiramate 50 mg Tablet 75 mg PO HS topiramate 50 mg Tablet 50 mg PO QAM levocetirizine [Xyzal] 5 mg Tablet 5 mg PO PM fluticasone furoate-vilanterol [Breo Ellipta] 200-25 mcg/dose Blister With Device 1 inh INHALATION DAILY gabapentin 600 mg tablet 600 mg PO AMHS memantine 10 mg tablet 10 mg PO DAILY deutetrabenazine 36 mg Tablet Extended Release 24 Hr 36 mg PO DAILY Changed donepezil 10 mg tablet 5 mg PO DAILY Qty: 0 0RF ropinirole 0.25 mg tablet 0.25 mg PO BID Qty: 0 0RF Discontinued prazosin 2 mg capsule 2 mg PO HS Rx Instructions: TOTAL DOSE 3 MG--TAKES WITH 1 MG TAB. fluoxetine [Prozac] 40 mg capsule 80 mg PO QAM bupropion HCl 150 mg tablet sustained-release 12 hr 150 mg PO QAM Rx Instructions: TOTAL DOSE 250 MG--TAKES WITH 100 MG TAB. prazosin 1 mg capsule 1 mg PO HS Rx Instructions: TOTAL DOSE 3 MG--TAKES WITH 2 MG TAB. bupropion HCl 100 mg tablet sustained-release 12 hr 200 mg PO QPM Rx Instructions: AFTERNOON hydroxyzine HCl 25 mg tablet 25 mg PO BID Rx Instructions: TAKES AT NOON & QPM. aripiprazole [Abilify] 15 mg Tablet 10 mg PO HS Discharge Orders: Discharge Order (Routine); Ordered 07/11/25 Ordered By: Pascual Mcgee/Other Patient Handouts: Propranolol Oral Tablet, Fluoxetine Oral Tablet, Ropinirole Oral Tablet, Aripiprazole Oral Tablet, Buspirone Oral Tablet Admission Data Admit Date/Time: 07/04/25 23:22 Attending Provider: Pascual Curry Admit Provider: Remigio Munoz Primary Care Provider: Christina Govea Other Providers: Remigio Munoz; Phylicia Recinos; Catracho Milian; Phylicia Soto; Luis Montgomery; Rios Eid; Howie Elmore; Justus Michaud; Erika Narayan; Jae Wright; Justin Echavarria; Juanjo Alexandra; Baldemar Gonzalez; Jerica Tovar; Justus Rojas; Kelsey Severino; Deedee Villafana; Rico Whitney; Fifi Gallegos; Luis Lee; Lois Beatty; Joanne Zapata; Ermias Dorantes; Gio Lackey; Charan Thacker; Yolande Sam; Hugo Elam; Rosie Corral [place]; [facility] Other Interventions: Discharge Summary Assessment (RN) Last Done: 07/11/25 11:27
[2025-07-11 12:08] VITALS: BP 119/77; TEMP 98.2; O2SAT 93
== END 2025-07-11 15:25 | disposition home or self-care (01) | DRG 92 ==
LOC: ED 20:21 → SUATTDRO 23:22 → EDINP 23:22 → INTOOBSV 23:22 → 2W 07-05 02:24